=== PATIENT | male | born 1945 | race Caucasian/White ===

== ENCOUNTER → 2016-05-06 | Outpatient (CLI) | payer OTHER ==
[~2016-05-06] MED LIST: AMLO-110 PO; ASPI1TAB83 PO; CINN1CAP2 PO; GLIM4TAB2 PO; KFL500 PO; LSN20 PO; LSX20 PO; METF-384 PO; METF1000 PO; METO50TA16 PO; NAPR1TAB9 PO; OMG3 PO; PRLSR20 PO; PRVC/20 PO; SULF-302 PO; SYMIN PO; TAMS0.4C38 PO; XNX25 PO; [UNRECOGNIZED DRUG - CODE] SQ
[2016-05-06 17:42] LABS: BASO % 0.2 %; BASO ABS # 0.02 K/uL (0-0.2); COMPLETE YES; EOS % 0.7 %; HEMATOCRIT 36.5 % (42-52); IG% 0.4 %; LYMPH % 16.2 %; LYMPH ABS # 2.07 K/uL (1.2-3.4); MEAN CELL VOLUME 85.9 fL (80-100); MEAN CORPUSCULAR HEMOGLOBIN 28.9 pg (25-34); MEAN CORPUSCULAR HGB CONC 33.7 g/dl (32-36); MONO % 11.2 %; NEUT % 71.3 %; PLATELET COUNT 229 K/uL (130-400); RED BLOOD COUNT 4.25 M/uL (4.7-6.1); WHITE BLOOD COUNT 12.79 K/uL (4.8-10.8)
[2016-05-06 18:12] LABS: ALT/SGPT 21 U/L (12-78); AST/SGOT 14 U/L (15-37); BLOOD UREA NITROGEN 19 mg/dl (7-18); BUN/CREATININE RATIO 14.7 (10-20); CALCIUM 9.1 mg/dl (8.5-10.1); CARBON DIOXIDE 28 mmol/L (21-32); CHLORIDE 98 mmol/L (98-107); GLUCOSE 144 mg/dl (70-99); POTASSIUM 4.2 mmol/L (3.5-5.1); SODIUM 136 mmol/L (136-145)
[2016-05-06 18:15] LABS: ALB/GLOB RATIO 0.9 (0.9-2); ALKALINE PHOSPHATASE 99 U/L (45-117); C-REACTIVE PROTEIN 7.89 mg/dl (0-0.29)
== END | disposition home or self-care (01) ==
LOC: C.LAB1850 16:21
PROVIDERS: ATTEND Internal Medicine Infectious Disease
DX: L03.90 Cellulitis, unspecified (principal); M70.21 Olecranon bursitis, right elbow

== ENCOUNTER → 2016-05-07 | Outpatient (CLI) | payer OTHER ==
[~2016-05-07] MED LIST changes: +SULF-183 PO; -SULF-302 PO
== END | disposition home or self-care (01) ==
LOC: C.LABBC 08:53
PROVIDERS: ATTEND Orthopaedic Surgery
DX: M70.21 Olecranon bursitis, right elbow (principal)

== ENCOUNTER → 2016-05-18 | Outpatient (CLI) | payer OTHER ==
[2016-05-18 10:10] LABS: BASO % 0.3 %; BASO ABS # 0.02 K/uL (0-0.2); COMPLETE YES; EOS % 2.8 %; HEMATOCRIT 36.3 % (42-52); IG% 0.4 %; LYMPH % 30.7 %; MEAN CELL VOLUME 86.6 fL (80-100); MEAN CORPUSCULAR HEMOGLOBIN 29.1 pg (25-34); MEAN CORPUSCULAR HGB CONC 33.6 g/dl (32-36); MEAN PLATELET VOLUME 9.5 fL (7.4-10.4); MONO % 7.3 %; NEUT % 58.5 %; PLATELET COUNT 201 K/uL (130-400); RED BLOOD COUNT 4.19 M/uL (4.7-6.1); WHITE BLOOD COUNT 7.16 K/uL (4.8-10.8)
[2016-05-18 10:27] LABS: ESTIMATED AVERAGE GLUCOSE 154 mg/dl; HA1C FLAG Normal (Normal)
[2016-05-18 10:51] LABS: ALT/SGPT 22 U/L (12-78); BLOOD UREA NITROGEN 27 mg/dl (7-18); CALCIUM 9.5 mg/dl (8.5-10.1); CARBON DIOXIDE 32 mmol/L (21-32); CHLORIDE 98 mmol/L (98-107); GLUCOSE 82 mg/dl (70-99); POTASSIUM 4.7 mmol/L (3.5-5.1); SODIUM 138 mmol/L (136-145)
[2016-05-18 10:53] LABS: ALKALINE PHOSPHATASE 83 U/L (45-117); AST/SGOT 15 U/L (15-37); CHOLESTEROL 181 mg/dl (0-200); CHOLESTEROL/HDL RATIO 4.9; HDL CHOLESTEROL 37 mg/dl; LDL CHOLESTEROL CALCULATED 72 mg/dl; TRIGLYCERIDES 358 mg/dl (0-150); VERY LOW DENSITY LIPOPROT CALC 72 mg/dl
[2016-05-18 11:48] LABS: RATIO 19.4 mcg/mg (0-30.0)
== END | disposition home or self-care (01) ==
LOC: C.LAB1850 09:25
PROVIDERS: ATTEND Internal Medicine
DX: E78.5 Hyperlipidemia, unspecified (principal); E11.42 Type 2 diabetes mellitus with diabetic polyneuropathy

== ENCOUNTER → 2016-05-24 | Outpatient (CLI) | payer OTHER ==
[2016-05-24 09:55] LABS: BLOOD UREA NITROGEN 21 mg/dl (7-18); BUN/CREATININE RATIO 13.7 (10-20); CALCIUM 9.6 mg/dl (8.5-10.1); CARBON DIOXIDE 26 mmol/L (21-32); CHLORIDE 100 mmol/L (98-107); GLUCOSE 148 mg/dl (70-99); POTASSIUM 4.8 mmol/L (3.5-5.1); SODIUM 138 mmol/L (136-145)
== END | disposition home or self-care (01) ==
LOC: C.LAB1850 07:53
PROVIDERS: ATTEND Internal Medicine
DX: N28.9 Disorder of kidney and ureter, unspecified (principal)

== ENCOUNTER → 2016-05-27 | Outpatient (CLI) | payer OTHER ==
[2016-05-27 12:54] LABS: BLOOD UREA NITROGEN 22 mg/dl (7-18); BUN/CREATININE RATIO 14.9 (10-20); CALCIUM 9.6 mg/dl (8.5-10.1); CARBON DIOXIDE 29 mmol/L (21-32); CHLORIDE 98 mmol/L (98-107); GLUCOSE 161 mg/dl (70-99); POTASSIUM 4.5 mmol/L (3.5-5.1); SODIUM 136 mmol/L (136-145); URIC ACID 8.3 mg/dl (2.6-7.2)
== END | disposition home or self-care (01) ==
LOC: C.LABBFT 11:12
PROVIDERS: ATTEND Internal Medicine
DX: N28.9 Disorder of kidney and ureter, unspecified (principal); M10.9 Gout, unspecified

== ENCOUNTER → 2016-06-04 | Outpatient (CLI) | payer OTHER ==
[2016-06-04 13:15] LABS: BLOOD UREA NITROGEN 24 mg/dl (7-18); BUN/CREATININE RATIO 17.5 (10-20); CALCIUM 9.8 mg/dl (8.5-10.1); CARBON DIOXIDE 27 mmol/L (21-32); CHLORIDE 99 mmol/L (98-107); GLUCOSE 161 mg/dl (70-99); POTASSIUM 4.8 mmol/L (3.5-5.1); SODIUM 136 mmol/L (136-145)
== END | disposition home or self-care (01) ==
LOC: C.LABBFT 10:09
PROVIDERS: ATTEND Internal Medicine
DX: N28.9 Disorder of kidney and ureter, unspecified (principal)

== ENCOUNTER → 2016-08-03 | Outpatient (CLI) | payer OTHER ==
--- NOTE | 2016-08-04 06:04 | PAP/PSG TECHNICIAN REPORT ---
[facility] Assembly Lead Person Polysomnogram Report Study name: None Report date: 08/04/2016 Study date: 08/03/2016 Referring Physician: DONNIE LEAVITT M.D. Name: KULDIP HARDEN I Interpreting Physician: Kuldip Zambrano M.D. Date of : 1945 Assembly Lead Person: Page Smith RPSGT. Sex: Male Age: 71 StudyType: PSG PAP Weight: 310 lbs Height: 71 years, Height 5' 9" Neck Circum:20inches BMI: 45.77 Medications: Alprazolam 0.25 mg, Amlodipine Besylate 5mg, Aspirin 81 mg, Byetta 10 MCG Pen , Cephalexin 500 mg, Furosemide 20 mg, Glimepiride 4 mg, Lisinopril 20mg, Metformin 1000 mg, Metoprolol Tartrate 50 mg, Naproxen Sodium 220 mg, Omeprazole 20 mg, Sulfamethoxazole-Trimethoprim 800-160 mg, Symbocort 160-4.5 MCG/ACT, Tamsulosin HCL 0.4 mg Patient History Study started on room air with 7 cwp cpap in room #6(had to start at a higher setting than 4cwp). 71 yr old male here tonight for a titration study to check pressure settings. He has been using cpap at a setting of 10cwp with cflex 2 with a nasal mask. His neck circ=20inches. Parameters Monitored NPSG: E1-M2, E2-M1, Fp1-M2, Fp2-M1, F3-M2, F4-M2, F4-M1, C3-M2, C4-M2, C4-M1, O1-M2, O2-M2, O2-M1, T3-M2, T4-M1, P3-M2, P4-M1, CHIN1, CHIN2, HR, EKG, Legs, PFLOW, SNOR, FLOW, CFLOW, Tidal Volume, THOR, ABDO, SpO2, PLTH, CPRESS, ETCO2 Wave, ETCO2, pH Sleep Architecture Sleep Stages Time at Lights Off 10:59:04 PM STAGES Time (min.) TST (%) Time at Lights On 5:22:34 AM Wake 71.0 -- Total Recording Time (TRT) 383.50 min. N1 7.5 2 Total Sleep Period (TSP) 380.5 min. N2 147.0 47 Total Sleep Time (TST) 312.5min. N3 97.0 31 Awake Time 71.0 min. REM 61.0 20 Wake after Sleep Onset 68.0 min. Sleep Efficiency (SE) 81 % Sleep Onset Latency (ELMER) 3.0 min. Number of Stage 1 Shifts None Awakenings 10 Stage Changes 47 Number of REM periods 4 REM 61.0 20 REM Latency 79.0 min. NREM 251.5 80 Body Position Analysis Supine Right Left Side Prone Vertical Total Sleep Time (min.) 18.0 224.5 84.3 308.81 0.0 0.0 Total Sleep Time (%) 1% 72% 27% 99 0% N/A% Total Sleep Time REM (min.) 0.0 41.0 20.0 None 0.0 0.0 Total Sleep Time NREM (min.) 3.7 183.5 64.3 None 0.0 0.0 Intermittent Wake (min.) 14.4 53.9 2.7 None 0.0 0.0 Total Sleep Period (%) 5% None None None None None Arousals Myoclonus (PLM) * Events Count Index Events Count Index Spontaneous 9 2 Events Awake (PLMW) 82 69.3 Respiratory 1 0.4 Events Asleep w/ Arousal (PLMA) 13 2.5 PLM 11 2 Events Asleep w/o Arousal (PLMS) 241 46.3 Snoring 2 0 Total Asleep 254 48.8 Total 23 4 Total 336 53 Respiratory Analysis * CA OA MA CH H RERA Total Count 0 0 0 0 9 0 9 Index 0.0 0.0 0.0 0 1.7 0 1.7 Mean Duration 0.0 0.0 0.0 0.00 33.3 0.0 33.3 Longest Duration 0.0 0.0 0.0 0.00 0.0 0.0 54.6 Respiratory Event Summary Total Supine ~Supine Right Left Prone REM NREM Apneas Count 0 0 0 0 0 N/A 0 0 Index 0.0 0 0 0.0 0.0 N/A 0 0 Hypopneas (4% Desat) Count 9 0 9 6 3 N/A 2 7 Index 1.7 0.0 2 1.6 2.1 N/A 2.0 1.7 Apneas & All Hypopneas Count 9 0 9 6 3 N/A 2 7 Index 1.7 0 2 2 2 N/A 2.0 1.7 Respiratory Events (Women'S Lacrosse Coach+All Hyp+RERA) Count 9 0 9 6 3 N/A 2 7 Index 1.7 0 2 1.6 2.1 N/A 2.0 1.7 Respiratory Related Arousal Count 1 0 2 1 1 N/A 0 2 Index 0.4 0 0 0 1 N/A 0 0 Snoring Analysis Supine Right Left Prone REM NREM Total Snore duration 5.9 min Snores count 1 23 83 N/A 23 84 107 Snore mean duration 3.3 Sec Snores index 16 6 59 N/A 22.6 20.0 20.5 TST with snoring (%) 1.9% Desaturation Event Summary: Minimum %SpO2 Event Count Mean/Min/Max Duration(sec.) Desaturation Index % Time In Bed > 90 17 33.4 / 9.8 / 59.8 7.5 38.2 86 - 90 18 35.0 / 9.8 / 59.8 5.6 54.3 81 - 85 3 33.6 / 17.3 / 56.5 6.9 7.4 76 - 80 0 N/A 0.0 0.1 71 - 75 0 N/A 0.0 0.0 66 - 70 0 N/A 0.0 0.0 61 - 65 0 N/A 0.0 0.0 56 - 60 0 N/A 0.0 0.0 51 - 55 0 N/A 0.0 0.0 < 50 0 N/A 0.0 0.0 Total REM NREM Awake <50% 0.0 min. 0.0 min. 0.0 min. 0.0 min. 51 - 60% 0.0 min. 0.0 min. 0.0 min. 0.0 min. 61 - 70% 0.0 min. 0.0 min. 0.0 min. 0.0 min. 71 - 80% 0.3 min. 0.3 min. 0.0 min. 0.0 min. 81 - 90% 218.0 min. 37.6 min. 163.1 min. 17.3 min. 91 - 100% 135.2 min. 23.1 min. 88.0 min. 24.1 min. Average 90 89 90 92 Minimum SpO2 80 80 83 83 Desaturation Event Index 3.8 3.9 3.8 3.4 # Desat. Events below 89% 21 4 14 3 Time(%) with Saturation below 89% 37.8 6.9 28.3 2.5 Time(min.) with Saturation below 89% 133.5 24.5 100.2 8.9 Time (mins) REM (mins) NREM (mins) % of TST SpO2 Below 90% 19 4 N15 52.7 SpO2 Below 88% 10 0 0 27 Heart Rate Analysis Min (bpm) Max (bpm) Average (bpm) Awake 49 127 72 NREM 45 83 67 REM 42 79 63 Overall 42 83 66 Supplemental O2 Values Minimum O2 level: None Value Start Time End Time Assembly Lead Person Comments Mr. Harden slept in the right andleft positions. No cardiac arrhythmia noted. Leg movements were noted. No bruxism noted. CPAP was initiated at +7 CMH2O and up-titrated to an optimal level of +8CMH2O and 3 lpm oxygen, which nearly eliminated all respiratory events and snoring. At 1:51am oxygen was added. AHI on 9cwp was 3.9 for 123.4minutes. Oxygen saturations were under 89% for 76.7minutes. He brought his own nasal mask to use during titration. He awoke 4 times to use the restroom during the night. He stated that he slept about the same as when at home". The final report will be interpreted and signed by a sleep physician. The completed physician report will then be placed in the patient medical record. Therapy Event: Therapy (cm H20) 7 8 Total Time at Pressure (min.) 47.1 336.4 TST at Pressure (min.) 44.1 268.4 # Periods 1 1 Sleep Onset (min.) 3.0 0.0 REM Onset (min.) N/A 34.9 Sleep Efficiency % 93 79 Wakefulness (%) 6.4 20.2 Wakefulness (min.) 3.0 68.0 NREM 1 (%) 2.1 1.9 NREM 1 (min.) 1.0 6.5 NREM 2 (%) 45.9 37.3 NREM 2 (min.) 21.6 125.4 NREM 3 (%) 45.6 22.4 NREM 3 (min.) 21.5 75.5 REM (%) 0.0 18.1 REM (min.) 0.0 61.0 # Arousals 2 21 Arousal Index 2.7 4.7 # Snore 4 103 Snore Index 5.4 23.0 AHI 4.1 1.3 AHI Supine N/A 0.0 AHI Non-Supine 4.1 1.4 NREM AHI 4.1 1.2 REM AHI N/A 2.0 RDI 4.1 1.3 # Obstructive 0 0 # Central Ap 0 0 # Mixed 0 0 # Hypopneas 3 6 RERAS 0 0 Total Respiratory Events 3 6 Time Below SpO2 89.00% (min.) 32.1 92.6 Mean NREM SpO2 (%) 88 90 Mean REM SpO2 (%) N/A 89 Mean Sleep SpO2 (%) 88 90 Min NREM SpO2 (%) 86 83 Min REM SpO2 (%) N/A 80 Position Supine (min.) 0.0 3.7 Position Non-supine (min.) 44.1 264.7 LM Index Sleep 172.7 28.4 LM Index NREM 172.7 31.0 LM Index REM N/A 19.7 Mean Heart Rate (bpm) 69 65 Min Heart Rate (bpm) 64 42
--- NOTE | 2016-08-05 09:24 | POLYSOMNOGRAPH REPORT ---
CLINICAL DATA: A 71-year-old male with BMI of 45.[address] Duncan and myself for CPAP titration study. He has been using CPAP 10 cm of water pressure, C-flex 2 with nasal mask. He recently had an overnight pulse oximetry which showed some external desaturation. He was returned to the sleep lab for another CPAP titration study to determine if hypoxemia could be corrected with CPAP. SLEEP ARCHITECTURE: Total sleep period was 380.5 minutes. Total sleep time was 312.5 minutes divided between 251.5 minutes of non-REM sleep and 61 minutes of REM sleep. Sleep onset latency was 3 minutes. REM latency was 79 minutes. Sleep efficiency was 81%. Wake after sleep onset was 68 minutes. Sleep consisted of stage N1 2%, N2 47%, N3 31%, REM 20%. AROUSAL DATA: Twenty-three arousals were recorded for an index of 4 per hour. PLM DATA: Moderately elevated limb movements during sleep were noted. There were 254 limb movements during sleep noted for an index of 48.8 per hour with arousal index of 2.5 per hour. RESPIRATORY DATA: The AHI was 1.7. There were 9 hypopneic episodes. The mean duration of hypopnea was 33.3 seconds. OXIMETRY DATA: Nocturnal hypoxemia was seen. Oxygen sussy was 88% during REM. The mean saturation was 90%. EKG: Heart rates ranged from 42-83 beats per minute. No arrhythmias were noted. BURLESQUE DANCER'S COMMENTS: The patient slept in the left and right positions. CPAP was started at 7 cm of water pressure and titrated up to an optimal level of 8-9 cm of water pressure. His CPAP did eliminate all respiratory events, but he continued to have nocturnal hypoxemia with an O2 saturation less than 89% for over 76.7 minutes without oxygen. He did have oxygen added and CPAP was continued. Three liters of oxygen was required to correct his sleep apnea. IMPRESSION: Obstructive sleep apnea with nocturnal hypoxemia corrected with CPAP 8-9 cm of water pressure, Oxygen 3 liters per minute. RECOMMENDATIONS: The patient's CPAP should be continued. He should be started on oxygen 3 liters per minute along with CPAP. [facility]
== END | disposition home or self-care (01) ==
LOC: C.NEUR 21:00
PROVIDERS: ATTEND Internal Medicine Pulmonary Disease
DX: G47.33 Obstructive sleep apnea (adult) (pediatric) (principal); R09.02 Hypoxemia; J45.909 Unspecified asthma, uncomplicated

== ENCOUNTER → 2016-09-30 | Outpatient (CLI) | payer OTHER ==
--- NOTE | 2016-09-30 17:13 | DIAGNOSTIC IMAGING REPORT ---
RIGHT SHOULDER 3 VIEWS HISTORY: PAIN IN JOINT OF RIGHT SHOULDER Right COMPARISON: None. FINDINGS: There is no fracture or dislocation. 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 The right clavicle is intact. Small focus of calcification at the distal supraspinatus tendon. Mild AC joint arthrosis. No radiopaque foreign bodies. IMPRESSION: 1. No fracture or dislocation within the right shoulder. 2. Degenerative changes as described above. 3. Supraspinatus calcific tendinitis. Electronically signed by: Meño Dc M.D. 09/30/2016 5:12 PM Dictated Date/Time: 09/30/2016 5:10 PM
== END | disposition home or self-care (01) ==
LOC: C.RAD1850 16:49
PROVIDERS: ATTEND Physician Assistant Medical
DX: M25.511 Pain in right shoulder (principal); M75.31 Calcific tendinitis of right shoulder; M19.011 Primary osteoarthritis, right shoulder

== ENCOUNTER → 2016-10-14 | Outpatient (CLI) | payer OTHER ==
[2016-10-14 12:48] LABS: BLOOD UREA NITROGEN 17 mg/dl (7-18); BUN/CREATININE RATIO 17.2 (10-20); CALCIUM 9.4 mg/dl (8.5-10.1); CARBON DIOXIDE 30 mmol/L (21-32); CHLORIDE 100 mmol/L (98-107); GLUCOSE 137 mg/dl (70-99); POTASSIUM 4.2 mmol/L (3.5-5.1); SODIUM 137 mmol/L (136-145)
[2016-10-14 13:18] LABS: ESTIMATED AVERAGE GLUCOSE 154 mg/dl; HA1C FLAG Normal (Normal)
== END | disposition home or self-care (01) ==
LOC: C.LABBFT 10:45
PROVIDERS: ATTEND Internal Medicine
DX: E11.9 Type 2 diabetes mellitus without complications (principal)

== ENCOUNTER → 2017-01-11 | Outpatient (CLI) | payer OTHER | END | disposition home or self-care (01) | LOC: C.LABBFT 11:07 | PROVIDERS: ATTEND Urology | DX: Z12.5 Encounter for screening for malignant neoplasm of prostate (principal); D48.9 Neoplasm of uncertain behavior, unspecified; N28.9 Disorder of kidney and ureter, unspecified ==

== ENCOUNTER → 2017-03-10 | Outpatient (CLI) | payer OTHER ==
[2017-03-10 13:20] LABS: ESTIMATED AVERAGE GLUCOSE 160 mg/dl; HA1C FLAG Normal (Normal)
== END | disposition home or self-care (01) ==
LOC: C.LABBFT 10:57
PROVIDERS: ATTEND Internal Medicine
DX: E11.9 Type 2 diabetes mellitus without complications (principal)

== ENCOUNTER → 2017-05-23 | Day surgery (SDC) | payer OTHER ==
[2017-05-12 09:11] VITALS: Ht 175.3 cm; Wt 140.9 kg
[~2017-05-23] VITALS: Ht 175.3 cm; Wt 140.9 kg
[~2017-05-23] MED LIST changes: +ALLO300T2 PO; +EXEN1INJ3 SC; +FURO40TA3 PO; -KFL500 PO; +LIDOCAINE HCL 2% 2 ML VIAL (20MG/ML) ONE; -LSX20 PO; +MIDAZOLAM HCL 1 MG/ML 2ML VIAL ONE; +ONDANSETRON INJ 2 MG/ML 2 ML VIAL ONE; +PROPOFOL IV EMULSION 10 MG/ML 20 ML VIAL IV ONE; -PRVC/20 PO; +PRVC40 PO; +SODIUM CHLORIDE 0.9% 500ML 500 ML IV ONE; -SULF-183 PO; +TRAM-10 PO; -[UNRECOGNIZED DRUG - CODE] SQ
--- NOTE | 2017-05-23 08:46 | Endo History and Physical ---
History & Physical Date of Service: May 23, 2017. Chief Complaint: GERD Referring Physician: Dr. Duncan History of Present Illness 71 yo CM who presents for EGD secondary to GERD. Past Medical History Diabetes, Asthma, High Cholesterol, Sleep Apnea, CHF, Hypertension, Other Past Surgical History Hx Cardiac Surgery: Yes (HEART CATH, NO STENTS) Hx Internal Defibrillator: No Hx Pacemaker: No Hx Abdominal Surgery: Yes (S[facility]LEY) Hx of Implantable Prosthesis: No Hx Post-Op Nausea and Vomiting: No Hx Cancer Surgery: No Hx Thoracic Surgery: No Hx Orthopedic: No Hx Urinary Tract Surgery: No Family History None Social History Smoking Status: Former Smoker Hx Substance Use: No Hx Alcohol Use: Yes (QUIT "YEARS AGO") Allergies Coded Allergies: Molds and Smuts (Verified Allergy, Severe, respiratory problems, 05/23/17) Atorvastatin (Verified Adverse Reaction, Mild, Muscle soreness, 05/23/17) Rosuvastatin (Verified Adverse Reaction, Mild, Muscle soreness, 05/23/17) Simvastatin (Verified Adverse Reaction, Mild, Muscle soreness, 05/23/17) Current Medications Reported Home Medications Medications Dose Route/Sig Max Daily Dose Days Date Category Bydureon (Exenatide) 2 Mg Inj 2 Mg SC WK 05/12/17 Reported Zyloprim (Allopurinol) 300 Mg Tab 300 Mg PO QAM 05/12/17 Reported Ultram (Tramadol HCl) 50 Mg Tab 1-2 Tabs PO Q6H PRN 05/12/17 Reported Pravastatin Sodium (Pravastatin Sod) 40 Mg Tab 0.5 Tab PO QAM 05/12/17 Reported Lasix (Furosemide) 40 Mg Tab 40 Mg PO QAM 05/12/17 Reported Glucophage (Metformin Hcl) 1,000 Mg Tab 1,000 Mg PO QAM, QPM 02/15/15 Reported Norvasc (Amlodipine Besylate) 5 Mg Tab 5 Mg PO QAM 06/03/14 Reported Alprazolam 0.25 Mg Tab 0.25 Mg PO DAILY PRN 04/15/14 Reported Flomax (Tamsulosin Hcl) 0.4 Mg Cap 0.4 Mg PO BID 04/15/14 Reported Symbicort 160-4.5 Mcg/Act (Budesonide/Formoterol Fumarate) 60 Puffs/Inhaler Aero 2 Puffs PO BID 04/15/14 Reported Glucophage (Metformin Hcl) 1,000 Mg Tab 0.5 Tab PO HS 04/15/14 Reported Glimepiride 4 Mg Tab 4 Mg PO BID 04/15/14 Reported Lisinopril 20 Mg Tab 40 Mg PO QAM 04/15/14 Reported Fish Oil 1 Gm Cap 1 Gm PO BID 04/15/14 Reported Cinnamon 500 Mg Cap 500 Mg PO BID 04/15/14 Reported Aspirin 81 Mg Tab 81 Mg PO QPM 04/15/14 Reported Aleve (Naproxen) 220 Mg Tab 220 Mg PO TID PRN 01/15/11 Reported Prilosec (Omeprazole) 20 Mg Capcr 20 Mg PO BID PRN 01/15/11 Reported Lopressor (Metoprolol Tartrate) 50 Mg Tab 50 Mg PO BID 01/15/11 Reported Vital Signs Weight (Kilograms): 140.91 Height (Feet): 5 Height (Inches): 9 Physical Exam General Appearance: WD/WN, no apparent distress Respiratory/Chest: Auscultation: breath sounds normal Cardiovascular: Heart Auscultation: RRR Abdomen: Bowel Sounds: normal Inspection & Palpation: soft, non-distended, no tenderness, guarding & rebound Assessment and Plan Assessment: 71 yo CM who presents for EGD secondary to GERD. Plan: Proceed with EGD.
--- NOTE | 2017-05-23 09:34 | Discharge Instructions ---
Endoscopy Patient Instructions Date / Procedure(s) Performed May 23, 2017. EGD Allergy Information Coded Allergies: Molds and Smuts (Verified Allergy, Severe, respiratory problems, 05/23/17) Atorvastatin (Verified Adverse Reaction, Mild, Muscle soreness, 05/23/17) Rosuvastatin (Verified Adverse Reaction, Mild, Muscle soreness, 05/23/17) Simvastatin (Verified Adverse Reaction, Mild, Muscle soreness, 05/23/17) Discharge Date / Findings May 23, 2017. Gastric ulcer s/p biopsies Gastritis Hiatal hernia Medication Instructions Stopped Medication(s): ASA 81 mg Metformin 1) Recommend taking Omeprazole 20mg by mouth 1/2 hour prior to breakfast and dinner, rather than PRN 2) OK to resume all medications today as prescribed Reported Home Medications Medications Dose Route/Sig Max Daily Dose Days Date Category Bydureon (Exenatide) 2 Mg Inj 2 Mg SC WK 05/12/17 Reported Zyloprim (Allopurinol) 300 Mg Tab 300 Mg PO QAM 05/12/17 Reported Ultram (Tramadol HCl) 50 Mg Tab 1-2 Tabs PO Q6H PRN 05/12/17 Reported Pravastatin Sodium (Pravastatin Sod) 40 Mg Tab 0.5 Tab PO QAM 05/12/17 Reported Lasix (Furosemide) 40 Mg Tab 40 Mg PO QAM 05/12/17 Reported Glucophage (Metformin Hcl) 1,000 Mg Tab 1,000 Mg PO QAM, QPM 02/15/15 Reported Norvasc (Amlodipine Besylate) 5 Mg Tab 5 Mg PO QAM 06/03/14 Reported Alprazolam 0.25 Mg Tab 0.25 Mg PO DAILY PRN 04/15/14 Reported Flomax (Tamsulosin Hcl) 0.4 Mg Cap 0.4 Mg PO BID 04/15/14 Reported Symbicort 160-4.5 Mcg/Act (Budesonide/Formoterol Fumarate) 60 Puffs/Inhaler Aero 2 Puffs PO BID 04/15/14 Reported Glucophage (Metformin Hcl) 1,000 Mg Tab 0.5 Tab PO HS 04/15/14 Reported Glimepiride 4 Mg Tab 4 Mg PO BID 04/15/14 Reported Lisinopril 20 Mg Tab 40 Mg PO QAM 04/15/14 Reported Fish Oil 1 Gm Cap 1 Gm PO BID 04/15/14 Reported Cinnamon 500 Mg Cap 500 Mg PO BID 04/15/14 Reported Aspirin 81 Mg Tab 81 Mg PO QPM 04/15/14 Reported Aleve (Naproxen) 220 Mg Tab 220 Mg PO TID PRN 01/15/11 Reported Prilosec (Omeprazole) 20 Mg Capcr 20 Mg PO BID PRN 01/15/11 Reported Lopressor (Metoprolol Tartrate) 50 Mg Tab 50 Mg PO BID 01/15/11 Reported Provider Instructions Activity Restrictions - No exercising or heavy lifting for 24 hours. - Do not drink alcohol the day of the procedure. - Do not drive a car or operate machinery until the day after the procedure. - Do not make any important decisions or sign important papers in 24 hours after the procedure. Following Day: - Return to full activity which may include returning to work/school. Diet Start your diet with liquids and light foods (jello, soup, juice, toast). Then eat your usual diet if not nauseated. Treatment For Common After Affects For mild abdominal pain, bloating, or excessive gas: - Rest - Eat lightly - Lie on right side Follow-Up Information Follow-up with in our office in 6 weeks for further evaluation and recommendations. Anesthesia Information What You Should Know You have had a procedure that required some medicine to reduce anxiety and discomfort. This treatment is called moderate sedation. After receiving the treatment, you may be sleepy, but you will be able to breathe on your own. The effects of the treatment may last for several hours. Follow these instructions along with Activity/Diet recommendations noted above: * Do NOT do anything where dizziness or clumsiness would be dangerous. * Rest quietly at home today, then you can be up and about tomorrow. * Have a responsible person stay with you the rest of today. * You may have had an I.V. today. If so, you may take the dressing off later today. Recommendations Call your doctor if: * Trouble breathing * Continuous vomiting for more than 24 hours * Temperature above 101 degrees * Severe abdominal pain or bloating * Pain not relieved by pain medicine ordered * There is increased drainage or redness from any incision * A large amount of rectal bleeding greater than 2-3 tablespoons. (If you had a polyp/s removed or have hemorrhoids, a small amount of blood - from the rectum is to be expected.) * You have any unanswered questions or concerns. IN THE EVENT OF A SERIOUS EMERGENCY, GO TO THE NEAREST EMERGENCY ROOM Your discharge instructions were prepared by provider Griffin Alas. Patient Instructions Signature Page Mango Harden Patient (or Guardian) Signature/Date: I have read and understand the instructions given to me by my caregivers. Caregiver/RN/Doctor Signature/Date: The above-named patient and/or guardian has received patient instructions on this date. + Original Patient Signature Page (only) stays with chart. Please make copy for patient.
--- NOTE | 2017-05-23 09:45 | Anesthesiology Progress Note ---
Anesthesia Post Op Note Date & Time May 23, 2017 at 09:44 Vital Signs Pain Intensity: 0 Vital Signs Past 12 Hours Date Time Temp Pulse Resp B/P (MAP) Pulse Ox O2 Delivery O2 Flow Rate FiO2 05/23/17 09:32 61 16 95/43 (60) 99 Mask 5 05/23/17 08:49 36.3 66 22 123/97 (106) 99 Room Air Notes Mental Status: alert / awake / arousable, participated in evaluation Pt Amnestic to Procedure: Yes Nausea / Vomiting: adequately controlled Pain: adequately controlled Airway Patency, RR, SpO2: stable & adequate BP & HR: stable & adequate Hydration State: stable & adequate Anesthetic Complications: no major complications apparent
[2017-05-23 10:02] VITALS: BP 106/56; PULSE 66; O2SAT 94
--- NOTE | 2017-05-24 11:42 | GI REPORT ---
Procedure Date: 05/23/2017 9:01 AM Procedure: Upper GI endoscopy Indications: Gastro-esophageal reflux disease Medicines: Monitored Anesthesia Care Complications: No immediate complications. Estimated Blood Loss: Estimated blood loss: none. Procedure: Pre-Anesthesia Assessment: - Prior to the procedure, a History and Physical was performed, and patient medications and allergies were reviewed. The patient's tolerance of previous anesthesia was also reviewed. The risks and benefits of the procedure and the sedation options and risks were discussed with the patient. All questions were answered, and informed consent was obtained. Prior Anticoagulants: The patient has taken aspirin, last dose was 3 days prior to procedure. ASA Grade Assessment: III - A patient with severe systemic disease. After reviewing the risks and benefits, the patient was deemed in satisfactory condition to undergo the procedure. After obtaining informed consent, the endoscope was passed under direct vision. Throughout the procedure, the patient's blood pressure, pulse, and oxygen saturations were monitored continuously. The scope was introduced through the mouth, and advanced to the second part of duodenum. The upper GI endoscopy was accomplished without difficulty. The patient tolerated the procedure well. Findings: The esophagus was normal. A small hiatal hernia was present. Localized mild inflammation characterized by erythema was found in the gastric antrum. One non-bleeding superficial gastric ulcer with no stigmata of bleeding was found in the gastric antrum. The lesion was 3 mm in largest dimension. Biopsies were taken with a cold forceps for histology. The examined duodenum was normal. Impression: - Normal esophagus. - Small hiatal hernia. - Gastritis. - Non-bleeding gastric ulcer with no stigmata of bleeding. Biopsied. - Normal examined duodenum. Recommendation: - Resume previous diet. - Use Prilosec (omeprazole) 20 mg PO BID. - Repeat upper endoscopy in 8 weeks to check healing. - Return to GI clinic in 6 weeks. Griffin Alas, 05/23/2017 9:43:34 AM This report has been signed electronically. Note Initiated On: 05/23/2017 9:01 AM I attest to the content of the Intraoperative Record and orders documented therein, exceptions below
== END | disposition home or self-care (01) ==
LOC: C.GI 08:09
PROVIDERS: ATTEND Internal Medicine
DX: K21.9 Gastro-esophageal reflux disease without esophagitis (principal); K25.9 Gastric ulcer, unspecified as acute or chronic, without hemorrhage or perforation; K44.9 Diaphragmatic hernia without obstruction or gangrene; E11.9 Type 2 diabetes mellitus without complications; J45.909 Unspecified asthma, uncomplicated; E78.00 Pure hypercholesterolemia, unspecified; G47.30 Sleep apnea, unspecified; I11.0 Hypertensive heart disease with heart failure; I50.9 Heart failure, unspecified; Z87.891 Personal history of nicotine dependence; Z79.84 Long term (current) use of oral hypoglycemic drugs; Z79.899 Other long term (current) drug therapy

== ENCOUNTER → 2017-07-07 | Outpatient (CLI) | payer OTHER ==
[~2017-07-07] MED LIST changes: -LIDOCAINE HCL 2% 2 ML VIAL (20MG/ML) ONE; -MIDAZOLAM HCL 1 MG/ML 2ML VIAL ONE; -ONDANSETRON INJ 2 MG/ML 2 ML VIAL ONE; -PROPOFOL IV EMULSION 10 MG/ML 20 ML VIAL IV ONE; -SODIUM CHLORIDE 0.9% 500ML 500 ML IV ONE
[2017-07-07 12:27] LABS: BASO % 0.2 %; BASO ABS # 0.02 K/uL (0-0.2); EOS % 5.1 %; EOS ABS # 0.49 K/uL (0-0.5); HEMATOCRIT 35.3 % (42-52); HEMOGLOBIN 12.1 g/dL (14.0-18.0); IG# 0.05 K/uL (0.00-0.02); LYMPH % 20.1 %; LYMPH ABS # 1.93 K/uL (1.2-3.4); MEAN CORPUSCULAR HEMOGLOBIN 30.2 pg (25-34); MEAN CORPUSCULAR HGB CONC 34.3 g/dl (32-36); MEAN PLATELET VOLUME 9.7 fL (7.4-10.4); MONO % 7.3 %; NEUT % 66.8 %; NEUT ABS # 6.42 K/uL (1.4-6.5); PLATELET COUNT 189 K/uL (130-400); RED CELL DISTRIBUTION WIDTH CV 15.7 % (11.5-14.5); RED CELL DISTRIBUTION WIDTH SD 49.7 fL (36.4-46.3); WHITE BLOOD COUNT 9.61 K/uL (4.8-10.8)
[2017-07-07 13:18] LABS: ALBUMIN 3.7 gm/dl (3.4-5.0); ALT/SGPT 23 U/L (12-78); BLOOD UREA NITROGEN 27 mg/dl (7-18); CALCIUM 9.7 mg/dl (8.5-10.1); CARBON DIOXIDE 28 mmol/L (21-32); CHOLESTEROL 177 mg/dl (0-200); CREATININE 1.12 mg/dl (0.60-1.40); GLUCOSE 132 mg/dl (70-99); POTASSIUM 4.2 mmol/L (3.5-5.1); SODIUM 131 mmol/L (136-145)
[2017-07-07 13:28] LABS: ALKALINE PHOSPHATASE 105 U/L (45-117); AST/SGOT 21 U/L (15-37); TOTAL PROTEIN 7.6 gm/dl (6.4-8.2)
[2017-07-07 13:39] LABS: HEMOGLOBIN A1C 7.3 % (4.5-5.6)
[2017-07-07 16:39] LABS: CREATININE RANDOM URINE 81.5 mg/dl
== END | disposition home or self-care (01) ==
LOC: C.LAB1850 09:57
PROVIDERS: ATTEND Internal Medicine
DX: E11.42 Type 2 diabetes mellitus with diabetic polyneuropathy (principal); E78.5 Hyperlipidemia, unspecified

== ENCOUNTER → 2017-07-13 | Outpatient (CLI) | payer OTHER ==
[~2017-07-13] MED LIST changes: +PRED-301 PO
[2017-07-13 12:42] LABS: BLOOD UREA NITROGEN 20 mg/dl (7-18); CALCIUM 9.7 mg/dl (8.5-10.1); CARBON DIOXIDE 30 mmol/L (21-32); CREATININE 1.06 mg/dl (0.60-1.40); GLUCOSE 100 mg/dl (70-99); POTASSIUM 4.2 mmol/L (3.5-5.1); SODIUM 135 mmol/L (136-145)
== END | disposition home or self-care (01) ==
LOC: C.LABBFT 08:24
PROVIDERS: ATTEND Internal Medicine
DX: E11.42 Type 2 diabetes mellitus with diabetic polyneuropathy (principal); E78.5 Hyperlipidemia, unspecified

== ENCOUNTER → 2017-07-20 | Day surgery (SDC) | payer OTHER ==
[2017-07-06 13:18] VITALS: BMI 46.0
[~2017-07-20] VITALS: Ht 175.3 cm; Wt 140.9 kg
[~2017-07-20] MED LIST changes: +LIDOCAINE HCL 2% 2 ML VIAL (20MG/ML) ONE; +MIDAZOLAM HCL 1 MG/ML 2ML VIAL ONE; +ONDANSETRON INJ 2 MG/ML 2 ML VIAL ONE; +PROPOFOL IV EMULSION 10 MG/ML 20 ML VIAL IV ONE; +SODIUM CHLORIDE 0.9% 500ML 500 ML IV ONE
[2017-07-20 08:20] VITALS: Ht 175.3 cm; Wt 140.9 kg
--- NOTE | 2017-07-20 08:51 | Endo History and Physical ---
History & Physical Date of Service: Jul 20, 2017. Chief Complaint: gastric ulcer Referring Physician: dr. kraus History of Present Illness 72 yo CM who presents for EGD secondary to gastric ulcer. Past Medical History Diabetes, Asthma, High Cholesterol, Sleep Apnea, CHF, Hypertension, Other Past Surgical History Hx Cardiac Surgery: Yes (CARDIAC CATH NO STENTS) Hx Internal Defibrillator: No Hx Pacemaker: No Hx Abdominal Surgery: Yes (GB SURG) Hx of Implantable Prosthesis: No Hx Post-Op Nausea and Vomiting: No Hx Cancer Surgery: No Hx Thoracic Surgery: No Hx Orthopedic: No Hx Urinary Tract Surgery: No Family History None Social History Smoking Status: Former Smoker Hx Substance Use: No Hx Alcohol Use: No (QUIT "YEARS AGO") Allergies Coded Allergies: Molds and Smuts (Verified Allergy, Severe, respiratory problems, 07/20/17) Atorvastatin (Verified Adverse Reaction, Mild, Muscle soreness, 07/20/17) Rosuvastatin (Verified Adverse Reaction, Mild, Muscle soreness, 07/20/17) Simvastatin (Verified Adverse Reaction, Mild, Muscle soreness, 07/20/17) Current Medications Reported Home Medications Medications Dose Route/Sig Max Daily Dose Days Date Category Dose Instructions Prednisone 5 Mg Tab 5 Mg PO PRN 07/20/17 Reported Bydureon (Exenatide) 2 Mg Inj 2 Mg SC WK 05/12/17 Reported SUNDAYS Zyloprim (Allopurinol) 300 Mg Tab 600 Mg PO QAM 05/12/17 Reported Ultram (Tramadol HCl) 50 Mg Tab 1-2 Tabs PO Q6H PRN 05/12/17 Reported Pravastatin Sodium (Pravastatin Sod) 40 Mg Tab 0.5 Tab PO QAM 05/12/17 Reported Lasix (Furosemide) 40 Mg Tab 40 Mg PO QAM 05/12/17 Reported Glucophage (Metformin Hcl) 1,000 Mg Tab 1,000 Mg PO QAM, QPM 02/15/15 Reported Norvasc (Amlodipine Besylate) 5 Mg Tab 5 Mg PO QAM 06/03/14 Reported Alprazolam 0.25 Mg Tab 0.25 Mg PO DAILY PRN 04/15/14 Reported Flomax (Tamsulosin Hcl) 0.4 Mg Cap 0.4 Mg PO BID 04/15/14 Reported Symbicort 160-4.5 Mcg/Act (Budesonide/Formoterol Fumarate) 60 Puffs/Inhaler Aero 2 Puffs PO BID 04/15/14 Reported Glucophage (Metformin Hcl) 1,000 Mg Tab 0.5 Tab PO HS 04/15/14 Reported Glimepiride 4 Mg Tab 4 Mg PO BID 04/15/14 Reported Lisinopril 20 Mg Tab 40 Mg PO QAM 04/15/14 Reported Fish Oil 1 Gm Cap 1 Gm PO BID 04/15/14 Reported Cinnamon 500 Mg Cap 500 Mg PO BID 04/15/14 Reported Aspirin 81 Mg Tab 81 Mg PO QPM 04/15/14 Reported Aleve (Naproxen) 220 Mg Tab 220 Mg PO TID PRN 01/15/11 Reported Prilosec (Omeprazole) 20 Mg Capcr 20 Mg PO BID 01/15/11 Reported Lopressor (Metoprolol Tartrate) 50 Mg Tab 50 Mg PO BID 01/15/11 Reported Vital Signs Weight (Kilograms): 140.91 Height (Feet): 5 Height (Inches): 9 Date Time Temp Pulse Resp B/P (MAP) Pulse Ox O2 Delivery O2 Flow Rate FiO2 07/20/17 08:27 36.5 67 20 156/84 (108) 95 Room Air Physical Exam General Appearance: WD/WN, no apparent distress Respiratory/Chest: Auscultation: breath sounds normal Cardiovascular: Heart Auscultation: RRR Abdomen: Bowel Sounds: normal Inspection & Palpation: soft, non-distended, no tenderness, guarding & rebound Assessment and Plan Assessment: 72 yo CM who presents for EGD secondary to gastric ulcer. Plan: Proceed with EGD
--- NOTE | 2017-07-20 10:00 | Discharge Instructions ---
Endoscopy Patient Instructions Date / Procedure(s) Performed Jul 20, 2017. EGD Allergy Information Coded Allergies: Molds and Smuts (Verified Allergy, Severe, respiratory problems, 07/20/17) Atorvastatin (Verified Adverse Reaction, Mild, Muscle soreness, 07/20/17) Rosuvastatin (Verified Adverse Reaction, Mild, Muscle soreness, 07/20/17) Simvastatin (Verified Adverse Reaction, Mild, Muscle soreness, 07/20/17) Discharge Date / Findings Jul 20, 2017. Hiatal hernia No evidence of prior ulcer Medication Instructions Stopped Medication(s): asa OK to resume all medications today as prescribed Reported Home Medications Medications Dose Route/Sig Max Daily Dose Days Date Category Dose Instructions Prednisone 5 Mg Tab 5 Mg PO PRN 07/20/17 Reported Bydureon (Exenatide) 2 Mg Inj 2 Mg SC WK 05/12/17 Reported SUNDAYS Zyloprim (Allopurinol) 300 Mg Tab 600 Mg PO QAM 05/12/17 Reported Ultram (Tramadol HCl) 50 Mg Tab 1-2 Tabs PO Q6H PRN 05/12/17 Reported Pravastatin Sodium (Pravastatin Sod) 40 Mg Tab 0.5 Tab PO QAM 05/12/17 Reported Lasix (Furosemide) 40 Mg Tab 40 Mg PO QAM 05/12/17 Reported Glucophage (Metformin Hcl) 1,000 Mg Tab 1,000 Mg PO QAM, QPM 02/15/15 Reported Norvasc (Amlodipine Besylate) 5 Mg Tab 5 Mg PO QAM 06/03/14 Reported Alprazolam 0.25 Mg Tab 0.25 Mg PO DAILY PRN 04/15/14 Reported Flomax (Tamsulosin Hcl) 0.4 Mg Cap 0.4 Mg PO BID 04/15/14 Reported Symbicort 160-4.5 Mcg/Act (Budesonide/Formoterol Fumarate) 60 Puffs/Inhaler Aero 2 Puffs PO BID 04/15/14 Reported Glucophage (Metformin Hcl) 1,000 Mg Tab 0.5 Tab PO HS 04/15/14 Reported Glimepiride 4 Mg Tab 4 Mg PO BID 04/15/14 Reported Lisinopril 20 Mg Tab 40 Mg PO QAM 04/15/14 Reported Fish Oil 1 Gm Cap 1 Gm PO BID 04/15/14 Reported Cinnamon 500 Mg Cap 500 Mg PO BID 04/15/14 Reported Aspirin 81 Mg Tab 81 Mg PO QPM 04/15/14 Reported Aleve (Naproxen) 220 Mg Tab 220 Mg PO TID PRN 01/15/11 Reported Prilosec (Omeprazole) 20 Mg Capcr 20 Mg PO BID 01/15/11 Reported Lopressor (Metoprolol Tartrate) 50 Mg Tab 50 Mg PO BID 01/15/11 Reported Provider Instructions Activity Restrictions - No exercising or heavy lifting for 24 hours. - Do not drink alcohol the day of the procedure. - Do not drive a car or operate machinery until the day after the procedure. - Do not make any important decisions or sign important papers in 24 hours after the procedure. Following Day: - Return to full activity which may include returning to work/school. Diet Start your diet with liquids and light foods (jello, soup, juice, toast). Then eat your usual diet if not nauseated. Treatment For Common After Affects For mild abdominal pain, bloating, or excessive gas: - Rest - Eat lightly - Lie on right side Follow-Up Information Follow-up with dr. kraus as scheduled Anesthesia Information What You Should Know You have had a procedure that required some medicine to reduce anxiety and discomfort. This treatment is called moderate sedation. After receiving the treatment, you may be sleepy, but you will be able to breathe on your own. The effects of the treatment may last for several hours. Follow these instructions along with Activity/Diet recommendations noted above: * Do NOT do anything where dizziness or clumsiness would be dangerous. * Rest quietly at home today, then you can be up and about tomorrow. * Have a responsible person stay with you the rest of today. * You may have had an I.V. today. If so, you may take the dressing off later today. Recommendations Call your doctor if: * Trouble breathing * Continuous vomiting for more than 24 hours * Temperature above 101 degrees * Severe abdominal pain or bloating * Pain not relieved by pain medicine ordered * There is increased drainage or redness from any incision * A large amount of rectal bleeding greater than 2-3 tablespoons. (If you had a polyp/s removed or have hemorrhoids, a small amount of blood - from the rectum is to be expected.) * You have any unanswered questions or concerns. IN THE EVENT OF A SERIOUS EMERGENCY, GO TO THE NEAREST EMERGENCY ROOM Your discharge instructions were prepared by provider Griffin Alas. Patient Instructions Signature Page [place] Patient (or Guardian) Signature/Date: I have read and understand the instructions given to me by my caregivers. Caregiver/RN/Doctor Signature/Date: The above-named patient and/or guardian has received patient instructions on this date. + Original Patient Signature Page (only) stays with chart. Please make copy for patient.
--- NOTE | 2017-07-20 10:05 | Anesthesiology Progress Note ---
Anesthesia Post Op Note Date & Time Jul 20, 2017 at 10:05 Vital Signs Pain Intensity: 0 Vital Signs Past 12 Hours Date Time Temp Pulse Resp B/P (MAP) Pulse Ox O2 Delivery O2 Flow Rate FiO2 07/20/17 09:53 64 20 112/57 (75) 93 Room Air 07/20/17 09:40 36.5 67 20 101/48 (65) 94 Room Air 07/20/17 08:27 36.5 67 20 156/84 (108) 95 Room Air Notes Mental Status: alert / awake / arousable, participated in evaluation Pt Amnestic to Procedure: Yes Nausea / Vomiting: adequately controlled Pain: adequately controlled Airway Patency, RR, SpO2: stable & adequate BP & HR: stable & adequate Hydration State: stable & adequate Anesthetic Complications: no major complications apparent
[2017-07-20 10:06] VITALS: BP 136/73; PULSE 67; O2SAT 93
--- NOTE | 2017-07-20 10:11 | GI REPORT ---
Procedure Date: 07/20/2017 9:11 AM Procedure: Upper GI endoscopy Indications: Follow-up of acute gastric ulcer Medicines: Monitored Anesthesia Care Complications: No immediate complications. Estimated Blood Loss: Estimated blood loss: none. Procedure: Pre-Anesthesia Assessment: - Prior to the procedure, a History and Physical was performed, and patient medications and allergies were reviewed. The patient's tolerance of previous anesthesia was also reviewed. The risks and benefits of the procedure and the sedation options and risks were discussed with the patient. All questions were answered, and informed consent was obtained. Prior Anticoagulants: The patient has taken aspirin, last dose was 1 day prior to procedure. ASA Grade Assessment: III - A patient with severe systemic disease. After reviewing the risks and benefits, the patient was deemed in satisfactory condition to undergo the procedure. After obtaining informed consent, the endoscope was passed under direct vision. Throughout the procedure, the patient's blood pressure, pulse, and oxygen saturations were monitored continuously. The scope was introduced through the mouth, and advanced to the second part of duodenum. The upper GI endoscopy was accomplished without difficulty. The patient tolerated the procedure well. Findings: The esophagus was normal. A small hiatal hernia was present. The examined duodenum was normal. Impression: - Normal esophagus. - Small hiatal hernia. No evidence of prior gastric ulcer. - Normal examined duodenum. - No specimens collected. Recommendation: - Resume previous diet. - Continue present medications. - Return to GI office as previously scheduled. Griffin Alas DO 07/20/2017 10:10:41 AM This report has been signed electronically. Note Initiated On: 07/20/2017 9:11 AM I attest to the content of the Intraoperative Record and orders documented therein, exceptions below
== END | disposition home or self-care (01) ==
LOC: C.GI 07:48
PROVIDERS: ATTEND Internal Medicine
DX: Z09 Encounter for follow-up examination after completed treatment for conditions other than malignant neoplasm (principal); K44.9 Diaphragmatic hernia without obstruction or gangrene; I10 Essential (primary) hypertension; E11.9 Type 2 diabetes mellitus without complications; G47.33 Obstructive sleep apnea (adult) (pediatric); J45.909 Unspecified asthma, uncomplicated; Z88.8 Allergy status to other drugs, medicaments and biological substances; Z79.899 Other long term (current) drug therapy; J44.9 Chronic obstructive pulmonary disease, unspecified; Z79.82 Long term (current) use of aspirin; Z98.890 Other specified postprocedural states; Z87.891 Personal history of nicotine dependence; Z80.9 Family history of malignant neoplasm, unspecified

== ENCOUNTER 2023-08-02 23:45 | Inpatient (IN) ==
--- NOTE | 2023-08-03 00:09 | Emergency Department Note ---
Impression & Plan Sepsis, Leukocytosis, Elevated troponin, Acute hyponatremia, Hypomagnesemia ED Provider Note NAME: KULDIP LANTIGUA AGE: 78 SEX: M : 1945 ARRIVES VIA: Ambulance INFORMANT: Patient ED PROVIDER(S): Moody Meléndez DO CHIEF COMPLAINT: chills, weakness and fever HPI: Patient is a 78-year-old male with a past medical history of gastritis, aortic stenosis, anemia, BPH, insomnia, hypertension, hyperlipidemia, diabetes and hyponatremia that presents to the ER for fever associated with shaking chills that started tonight. He denies all other complaints with exception of cough that has been present for the past 2 weeks as he was exposed to COVID 2 weeks ago. He notes the majority of the symptoms have resolved. He does have some dysuria. notes that he has been a little confused today as well. No other exacerbating or remitting factors. ADDITIONAL HISTORY OBTAINED: Per HPI Chronic Medical/Social Conditions Affecting Care: Per HPI PAST MEDICAL HISTORY:See Below PAST SURGICAL HISTORY:See Below FAMILY HISTORY:See Below SOCIAL HISTORY:See Below HOME MEDICATIONS:See Below ALLERGIES:See Below VITALS:See Below PHYSICAL EXAMINATION: GENERAL: Sitting up in bed, alert, well appearing, well nourished, no distress, non-toxic EYE EXAM: normal conjunctiva. PERRL and EOM's intact. OROPHARYNX: no exudate, no erythema, lips, buccal mucosa, and tongue normal and mucous membranes are moist NECK: supple, no nuchal rigidity, no adenopathy, non-tender LUNGS: Clear to auscultation. Normal chest wall mechanics HEART: no murmurs, S1 normal and S2 normal ABDOMEN: abdomen soft, non-tender, normo-active bowel sounds, no masses, no rebound or guarding. UPPER EXTREMITIES: upper extremities are grossly normal. LOWER EXTREMITIES: No pitting edema. NEURO EXAM: Normal sensorium, cranial nerves II-XII intact, normal speech, no weakness of arms, no weakness of legs. No drift. Finger to nose intact. Gross sensation intact. MEDICAL DECISION MAKING: Patient is a 78-year-old male who presents to the ER for fever, confusion and tachycardia. IV was established and blood work was obtained. Labs show leukocytosis of 15,000. Mild anemia at 12. BMP with mild hyponatremia at 129. Hypomagnesia at 1.5. Troponin elevated at 31 and do not feel this consistent with ACS likely secondary to infection/demand ischemia. viral panel was negative. Patient was given azithromycin and Rocephin. Patient was given IV fluids updated bedside. Chest x-ray shows bilateral infiltrates. Admitted for further workup after discussion with the hospitalist Dr. Conner Short. UA pending upon admission. Consults/Care Managements Discussions: Per MDM Triage Nursing notes reviewed. Limited review of prior medical records performed Vital Signs: reviewed and remarkable for febrile and tachycardic Differential diagnosis: Differential diagnosis includes etiologies such as sepsis, UTI, pneumonia, metabolic, electrolyte abnormalities, cardiac sources, intracerebral event, toxicologic, neurological, as well as others were entertained. ER treatment provided: See below Diagnostics interpreted by me include EKG and cardiac monitoring as listed below: -Cardiac Monitoring: An order was placed for continuous cardiac monitoring. The monitor shows a rate of 98 with sinus rhythm. -ECG: A-fib rate of 101 Poor baseline QTc 420 -Laboratory studies:Interpreted by me as stated above in MDM and shown below. Imaging studies: Xrays: As interpreted by me: Portable AP upright 1 view chest shows bilateral infiltrate CTs show: none Procedures:none Critical Care: None Past Med/Surg History Medical History (Updated 08/03/23 @ 03:09 by Lazara Bustamante DO) SIRS (systemic inflammatory response syndrome) Community acquired pneumonia History of colon polyps FOUND ON MOST RECENT COLONOSCOPY JUN 2022 Aortic stenosis MILD PER 11/29/19 ECHO. 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 Type 2 diabetes mellitus Hypertension Hyperlipidemia Sleep apnea CPAP Surgical History History of right cataract surgery History of biopsy 12/18/2019 right forearm mass H/O vascular surgery RT LEG History of carpal tunnel release of both wrists History of prostate biopsy benign History of colonoscopy with polypectomy JUN 2022 History of esophagogastroduodenoscopy (EGD) JUN 2022 History of Mohs surgery for squamous cell carcinoma of skin History of tooth extraction all upper teeth History of wisdom tooth extraction History of tonsillectomy S/P cholecystectomy S/P cardiac cath no stents Family History Father Myocardial infarction Mother Family history of diabetes mellitus Brother Family history of diabetes mellitus Other No family history of adverse response to anesthesia Denies family history of Ovarian cancer Prostate cancer Coronary heart disease Breast cancer Colorectal cancer Social History Smoking Status: Former smoker Tobacco Type: Cigarettes Age Started Using Tobacco: 11; Age Quit Using Tobacco: 42; packs per day: 1; Cigarettes Per Day: quit 30+yrs ago; Second Hand Exposure: No; Do You Dip or Chew Tobacco: No; Hx Alcohol Use: No Hx Substance Use: No Preferred Language: Maori Communication Ability: Effective Visual Impairment: No Limitations Hearing Ability: Normal Child And Family Counselor Required: No Beliefs That Will Affect Care: None marital status: Current Living Situation: Spouse current occupational status: retired 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[facility] Feels Safe at Home: Yes Childhood Exposure to Second-Hand Smoke: No Diet: regular caffeine: Yes during the past year weight has: remained stable Dental Care, Regularly: Yes Physical Activity Frequency: Does not Exercise Seatbelt Use: always Sunscreen Use: Yes Assistive Devices: Cane, CPAP, Denture - Upper, Denture - Lower and Other Allergies Allergies Allergy/AdvReac Type Severity Reaction Status Date / Time mold Allergy Intermediate respiratory Verified 08/03/23 01:03 problems atorvastatin AdvReac Intermediate Muscle Verified 08/03/23 01:03 soreness rosuvastatin AdvReac Intermediate Muscle Verified 08/03/23 01:03 soreness simvastatin AdvReac Intermediate Muscle Verified 08/03/23 01:03 soreness Home Meds Home Medications Medication Instructions Recorded Confirmed cinnamon bark 500 mg capsule 500 mg PO BID 01/15/19 08/03/23 (Cinnamon) aspirin 81 mg tablet,delayed 81 mg PO HS 02/26/19 08/03/23 release (Jie Low Dose Aspirin) mecobalamin (vitamin B12) 1,000 1,000 mcg sublingual BID 02/26/19 08/03/23 mcg disintegrating tablet,sublingual ascorbic acid (vitamin C) 500 mg 500 mg PO QAM 03/13/22 08/03/23 tablet (Vitamin C) cholecalciferol (vitamin D3) 50 50 mcg PO DAILY 03/13/22 08/03/23 mcg (2,000 unit) capsule (Vitamin D3) ferrous sulfate 325 mg (65 mg 325 mg PO QAM 03/13/22 08/03/23 iron) tablet omega-3 fatty acids 1,000 mg 1,000 mg PO BID 03/13/22 08/03/23 capsule fluticasone 500 mcg-salmeterol 50 1 inh inhalation BID 06/03/22 08/03/23 mcg/dose blistr powdr for inhalation (Wixela Inhub) tramadol 50 mg tablet 50 mg PO BID PRN Pain 10/27/22 08/03/23 allopurinol 300 mg tablet 300 mg PO BID #180 tabs 02/23/23 08/03/23 furosemide 20 mg tablet 20 mg PO 3XWK 08/03/23 08/03/23 magnesium oxide 420 mg tablet 420 mg PO BID 08/03/23 08/03/23 metformin 1,000 mg tablet 1,000 mg PO BID 08/03/23 08/03/23 potassium chloride 10 mEq 10 meq PO DAILY 08/03/23 08/03/23 capsule,extended release pravastatin 20 mg tablet 20 mg PO DAILY 08/03/23 08/03/23 semaglutide 1 mg/dose (4 mg/3 mL) 1 mg subcut WK 08/03/23 08/03/23 subcutaneous pen injector (Ozempic) Previous Rx's Medication Instructions Recorded OneTouch Delica Lancets 33 gauge #400 ea 01/11/20 (lancets) blood sugar diagnostic (OneTouch #50 ea 11/13/21 Verio test strips) albuterol sulfate 90 mcg/actuation 1 inh inhalation QID PRN shortness 03/13/22 aerosol inhaler of breath or wheezing #6.7 grams lisinopril 20 mg tablet 40 mg (2 x 20 mg) PO QAM 90 days 09/06/22 #180 tabs metoprolol tartrate 50 mg tablet 50 mg PO BID hypertension #180 09/06/22 tabs furosemide 40 mg tablet 40 mg PO QAM #90 tabs 12/30/22 omeprazole 40 mg capsule,delayed 40 mg PO DAILY #30 caps 01/04/23 release tamsulosin 0.4 mg capsule 0.4 mg PO BID #180 caps 03/22/23 Results & Data (ED) Vital Signs Vital Signs - 24 hr 08/02/23 23:49 08/03/23 00:30 08/03/23 00:44 Temperature 38.9 C H 38.3 C H Temperature Source Oral Oral Pulse Rate 96 H Pulse Rate [Apical] 104 H Respiratory Rate 20 21 Respiratory Effort / Characteristics Non-Labored Spontaneous Respiratory Depth Normal Respiratory Pattern Regular Blood Pressure 149/84 H Blood Pressure [Right Arm] 132/76 Blood Pressure Mean 105 Blood Pressure Mean [Right Arm] 94 Pulse Oximetry 92 94 94 Oxygen Delivery Method Room Air Room Air Room Air Sepsis Recent Fever Within 48 Hours Yes Sepsis New/Unexplained Change in Mental Status Yes Sepsis Action Taken by Nursing Physician Notified 08/03/23 00:52 08/03/23 00:57 08/03/23 01:00 Temperature Temperature Source Pulse Rate 106 H Pulse Rate [Apical] 95 H 103 H Respiratory Rate 21 22 Respiratory Effort / Characteristics Respiratory Depth Respiratory Pattern Blood Pressure Blood Pressure [Right Arm] 100/59 L 100/59 L Blood Pressure Mean Blood Pressure Mean [Right Arm] 72 72 Pulse Oximetry 94 94 Oxygen Delivery Method Room Air Room Air Sepsis Recent Fever Within 48 Hours Sepsis New/Unexplained Change in Mental Status Sepsis Action Taken by Nursing 08/03/23 01:15 08/03/23 01:30 08/03/23 03:00 Temperature Temperature Source Pulse Rate Pulse Rate [Apical] 109 H 98 H 95 H Respiratory Rate 22 16 21 Respiratory Effort / Characteristics Respiratory Depth Respiratory Pattern Blood Pressure Blood Pressure [Right Arm] 133/63 122/69 116/62 Blood Pressure Mean Blood Pressure Mean [Right Arm] 86 86 80 Pulse Oximetry 94 94 93 Oxygen Delivery Method Room Air Room Air Room Air Sepsis Recent Fever Within 48 Hours Sepsis New/Unexplained Change in Mental Status Sepsis Action Taken by Nursing Laboratory Data 08/03/23 00:42 08/03/23 00:42 Lab Results 08/03/23 08/03/23 Range/Units 00:42 01:30 WBC 15.73 H (4.8-10.8) K/ul RBC 4.03 L (4.70-6.10) M/uL Hgb 12.7 L (14.0-18.0) g/dl Hct 37.3 L (42.0-52.0) % MCV 92.6 (80.0-100.0) fL MCH 31.5 (25.0-34.0) pg MCHC 34.0 (32.0-36.0) g/dL RDW Std Deviation 53.1 H (36.4-46.3) fL RDW Coeff of Valdo 15.9 H (11.5-14.5) % Plt Count 187 (130-400) K/uL MPV 10.1 (9.4-12.4) fL Immature Gran % (Auto) 0.6 % Neut % (Auto) 88.6 % Lymph % (Auto) 5.8 % [place] % (Auto) 4.0 % Eos % (Auto) 0.7 % Baso % (Auto) 0.3 % Neut # (Auto) 13.94 H (1.40-6.50) K/uL Lymph # (Auto) 0.91 L (1.20-3.40) K/uL [place] # (Auto) 0.63 H (0.11-0.59) K/uL Eos # (Auto) 0.11 (0.00-0.50) K/uL Baso # (Auto) 0.04 (0.00-0.20) K/uL Immature Gran # (Auto) 0.10 (0.01-0.20) K/uL Sodium 129 L (136-145) mmol/L Potassium 4.9 (3.5-5.1) mmol/L Chloride 92 L (98-107) mmol/L Carbon Dioxide 28 (21-32) mmol/L Anion Gap 9 (3-11) BUN 31 H (6-23) mg/dl Creatinine 1.34 (0.6-1.4) mg/dl Est Cr Clr Drug Dosing 57.8 ml/min Est GFR ( Amer) 58.4 ml/min Est GFR (Non-Af Amer) 50.4 ml/min BUN/Creatinine Ratio 23.1 H (10-20) Glucose 224 H (70-99(Fasting)) mg/dl Lactate 2.0 (0.4-2.0) mmol/L Calcium 10.4 H (8.6-10.3) mg/dl Magnesium 1.5 L (1.7-2.4) mg/dl Total Bilirubin 0.8 (0.2-1.0) mg/dl Direct Bilirubin 0.2 (0-0.2) mg/dl AST 22 (13-39) U/L ALT 16 (7-52) U/L Alkaline Phosphatase 194 H (34-104) U/L Troponin I High Sens 31.2 H (0-20) pg/ml Total Protein 7.5 (6.0-8.3) gm/dl Albumin 4.3 (3.4-5.0) gm/dl Procalcitonin 0.03 (0-0.5) ng/ml Adenovirus (PCR) Not Detected (NotDetected) B. pertussis DNA (PCR) Not Detected (NotDetected) B.parapertussis DNA PCR Not Detected (NotDetected) C. pneumoniae DNA (PCR) Not Detected (NotDetected) Coronavirus OC43 (PCR) Not Detected (NotDetected) Coronavirus HKU1 (PCR) Not Detected (NotDetected) Coronavirus 229E (PCR) Not Detected (NotDetected) SARS-CoV-2 (PCR) Not Detected (NotDetected) Coronavirus NL63 (PCR) Not Detected (NotDetected) Human Metapneumovir PCR Not Detected (NotDetected) Influenza Type A (PCR) Not Detected (NotDetected) Influenza Type B (PCR) Not Detected (NotDetected) M. pneumoniae (PCR) Not Detected (NotDetected) Parainfluenza 1 (PCR) Not Detected (NotDetected) Parainfluenza 2 (PCR) Not Detected (NotDetected) Parainfluenza 3 (PCR) Not Detected (NotDetected) Parainfluenza 4 (PCR) Not Detected (NotDetected) RSV (PCR) Not Detected (NotDetected) Entero/Rhino (PCR) Not Detected (NotDetected) Administered Medications Azithromycin 500 mg/ Dextrose 255 mls @ 127.5 mls/hr IV NOW STA Stop: 08/03/23 03:15 Last Admin: 08/03/23 02:21 Dose: 127.5 mls/hr Documented By: MED Discontinued Medications Sodium Chloride (Nss) 500 mls @ 999 mls/hr IV .Q31M ONE Stop: 08/03/23 00:39 Last Infusion: 08/03/23 01:30 Dose: Infused Documented By: Admin: 08/03/23 00:48 Dose: 999 mls/hr Documented By: MARCOS Ceftriaxone Sodium (Rocephin) 2,000 mg in 50 mls @ 100 mls/hr IV NOW STA Stop: 08/03/23 00:38 Last Infusion: 08/03/23 02:13 Dose: Infused Documented By: collection clerk: 08/03/23 01:37 Dose: 100 mls/hr Documented By: MARCOS Sodium Chloride (Nss) 1,000 mls @ 999 mls/hr IV .Q1H1M ONE Stop: 08/03/23 02:48 Last Infusion: 08/03/23 02:16 Dose: 0 mls/hr Documented By: collection clerk: 08/03/23 02:13 Dose: 999 mls/hr Documented By: MED Discharge Plan Visit Data Chief Complaint: Fever Stated Complaint: FEVER, VOICES NO OTHER COMPLAINTS ED Provider: Moody Meléndez Discharge Problem: Sepsis, Leukocytosis, Elevated troponin, Acute hyponatremia, Hypomagnesemia Forms Stand Alone Forms: My [facility] [place] Pretty Simple Prescriptions Prescriptions: No Action (DME) lancets [OneTouch Delica Lancets] 33 gauge misc See Rx Instructions .ROUTE .MEDSUPPLY Qty: 400 3RF Rx Instructions: use to test 4 times daily (DME) OneTouch Verio test strips Strip See Rx Instructions .ROUTE .MEDSUPPLY Qty: 50 11RF Rx Instructions: USE TO TEST ONCE DAILY E11.9 PRN lisinopril 20 mg tablet 40 mg PO QAM 90 Days Qty: 180 3RF metoprolol tartrate 50 mg tablet 50 mg PO BID Qty: 180 3RF furosemide 40 mg tablet 40 mg PO QAM Qty: 90 3RF omeprazole 40 mg capsule,delayed release(DR/EC) 40 mg PO DAILY Qty: 30 5RF allopurinol 300 mg tablet 300 mg PO BID Qty: 180 tamsulosin 0.4 mg capsule 0.4 mg PO BID Qty: 180 3RF cinnamon bark [Cinnamon] 500 mg capsule 500 mg PO BID tramadol 50 mg tablet 50 mg PO BID PRN (Reason: Pain) aspirin [Jie Low Dose Aspirin] 81 mg Tablet,Delayed Release (Dr/Ec) 81 mg PO HS mecobalamin (vitamin B12) 1,000 mcg tablet,disintegrating 1,000 mcg SL BID omega-3 fatty acids 1,000 mg Capsule 1,000 mg PO BID ascorbic acid (vitamin C) [Vitamin C] 500 mg Tablet 500 mg PO QAM ferrous sulfate 325 mg (65 mg iron) Tablet 325 mg PO QAM cholecalciferol (vitamin D3) [Vitamin D3] 50 mcg (2,000 unit) Capsule 50 mcg PO DAILY albuterol sulfate 90 mcg/actuation HFA aerosol inhaler 1 inh inhalation QID PRN (Reason: shortness of breath or wheezing) Qty: 6.7 0RF fluticasone propion-salmeterol [Wixela Inhub] 500-50 mcg/dose blister with device 1 inh inhalation BID potassium chloride 10 mEq Capsule, Extended Release 10 meq PO DAILY magnesium oxide 420 mg Tablet 420 mg PO BID metformin 1,000 mg tablet 1,000 mg PO BID pravastatin 20 mg Tablet 20 mg PO DAILY Ozempic 1 mg/dose (4 mg/3 mL) Pen Injector 1 mg SUBCUT WK Rx Instructions: SUNDAYS furosemide 20 mg tablet 20 mg PO 3XWK Rx Instructions: TUE, TUE, & TUE, TAKES WITH 40 MG TAB TO EQUAL 60 MG. Referrals Referrals: Grady Duncan MD [Primary Care Provider] - Discharge Problem: Sepsis Qualifiers: Sepsis type: sepsis due to unspecified organism Sepsis acute organ dysfunction status: unspecified Qualified Code(s): A41.9 - Sepsis, unspecified organism Leukocytosis Qualifiers: Leukocytosis type: unspecified Qualified Code(s): D72.829 - Elevated white blood cell count, unspecified
[2023-08-03] MEDS: SODIUM CHLORIDE 0.9% 500 ML IV ONE (00:48)
[2023-08-03 01:08] LABS: Basophils # (auto) 0.04 K/uL (0.00-0.20); Basophils % (auto) 0.3 %; Eosinophils # (auto) 0.11 K/uL (0.00-0.50); Eosinophils % (auto) 0.7 %; Hematocrit (blood only) 37.3 % (42.0-52.0); Hemoglobin 12.7 g/dl (14.0-18.0); Immature Granulocytes % (auto) 0.6 %; Lymphocytes # (auto) 0.91 K/uL (1.20-3.40); Lymphocytes % (auto) 5.8 %; Mean Corpuscular Hemoglobin 31.5 pg (25.0-34.0); Mean Corpuscular Volume 92.6 fL (80.0-100.0); Mean Platelet Volume 10.1 fL (9.4-12.4); Monocytes # (auto) 0.63 K/uL (0.11-0.59); Neutrophils # (auto) 13.94 K/uL (1.40-6.50); Neutrophils % (auto) 88.6 %; Platelet Count 187 K/uL (130-400); RDW Coefficient of Variation 15.9 % (11.5-14.5); RDW Standard Deviation 53.1 fL (36.4-46.3); Red Blood Count 4.03 M/uL (4.70-6.10); White Blood Count 15.73 K/ul (4.8-10.8)
[2023-08-03 01:25] LABS: Albumin Level 4.3 gm/dl (3.4-5.0); BUN Creatinine Ratio 23.1 (10-20); Bilirubin Direct 0.2 mg/dl (0-0.2); Bilirubin,Total 0.8 mg/dl (0.2-1.0); Calcium 10.4 mg/dl (8.6-10.3); Creatinine Clr Calc Pharmacy 57.8 ml/min; Est GFR (African American) 58.4 ml/min; Est GFR (Non-African American) 50.4 ml/min; Magnesium 1.5 mg/dl (1.7-2.4); Potassium 4.9 mmol/L (3.5-5.1); Total Protein 7.5 gm/dl (6.0-8.3)
[2023-08-03 01:32] LABS: Troponin I High Sensitivity 31.2 pg/ml (0-20)
[2023-08-03] MEDS: cefTRIAXone SODIUM 2,000 MG/50 ML BAG IV STA (01:37)
--- NOTE | 2023-08-03 01:51 | History & Physical Report ---
"Date of Service August 03, 2023 Assessment & Plan (1) Community acquired pneumonia: (2) Sepsis: (3) Hypomagnesemia: (4) Elevated troponin: (5) Chronic venous insufficiency: (6) Anemia: (7) Asthma: (8) BPH with obstruction/lower urinary tract symptoms: (9) GERD (gastroesophageal reflux disease): (10) Gout, arthritis: (11) Type 2 diabetes mellitus: (12) Hypertension: (13) Hyperlipidemia: (14) Sleep apnea: Plan Summary: Mango is a 78M w/ PMH of MR, GIST of Stomach, , Castillo esophagus, chronic venous insufficiency, anemia, asthma, BPH w/ LUTS, diabetic peripheral neuropathy, GERD, PAD, T2DM, HTN, HLD, JOSEFINA, and chronic hyponatremia who presents for evaluation of a cough and chills. ED Course: IV Rocephin, IV Azithromycin, 500cc NSS Sepsis likely 2/2 Pulmonary Source * Patient with likely Viral URI 2 weeks ago, now with worsening cough, congestion, fevers, chills, weakness, and confusion * CXR concerning for bilateral pulmonary infiltrates, potential worse in RLL * Respiratory BioFire Negative, Procal negative, Lactate negative * Sepsis: Patient with tachycardia, leukocytosis, and fever w/ suspected pulmonary source * Blood Cultures Pending * S/p 500 cc NSS, clinical euvolemic to hypervolemic on exam, hold additional fluid resuscitation given cardiac hx, hold diuretic given sepsis * S/p IV Ceftriaxone and Azithromycin in ED, continue on admission * Mucinex, Albuterol, and Duonebs ordered PRN for sx relief, patient with asthma hx * Pulmonary toilet ordered New Onset A Fib | Elevated Troponin * Rising Trop likely 2/2 demand from active infection vs new A Fib * Trop 31.2 on admission, repeat up to 99.8, trend to peak * No chest pain or dyspnea * Echo 08/02/22 w/ normal LV function, mild LVH, L Atrial enlargement, mild and mild MR, repeat Echo ordered * Maintain K of 4/Mg of 2 (repletion ordered) * DVT Ppx ordered, will likely need full anticoagulation, CHADSVASC 4 * BP soft, could consider Digoxin for rate control if needed and BP remains low * Cardiology consulted, appreciate recommendations BPH w/ LUTS | Difficulty Emptying Bladder * No hematuria, dysuria, frequency, or suprapubic pressure * Patient/ note increasing difficulty emptying bladder * Difficulty providing urine sample/nursing unable to obtain PVR overnight * 30cc urine sample provided, urinalysis pending w/ culture if indicated * Potential for underlying urinary infection given patient's acute confusion and weakness Hyponatremia, Acute on Chronic * Baseline 132, currently 129 * Potential association w/ volume status +/- diuretic use * Patient euvolemic to mildly hypervolemic on exam (baseline edema, mucous membranes moist, no JVD) * S/p 500 cc NSS, diuretic hold, follow fluid status Chronic Conditions: * Asthma: Albuterol ordered PRN * Chronic Anemia: Hgb stable at 12.7, Iron supplementation at home * Gout: Continue allopurinol * HTN: Hold antihypertensives (Lisinopril/Metoprolol) for hypotension, would restart Metoprolol when stable d/t new AFib * DM2: Metformin and Ozempic held, SSI ordered w/ checks ACHS * Chronic Hypomagnesemia: Continue PO supplement * GERD: Continue PPI * HLD: Continue statin * Chronic Pain: continue Tramadol PRN Code Status:Full Diet:DM2/HH IVF:S/p 500 cc NSS, held diuretic DVT PPx:Lovenox CM: None Dispo: Med/Tele History of Present Illness Chief Complaint: Cough/Chills Primary Care Provider: MD Mango Harley is a 78M w/ PMH of MR, GIST of Stomach, , barretts esophagus, chronic venous insufficiency, anemia, asthma, BPH w/ LUTS, diabetic peripheral neuropathy, GERD, PAD, T2DM, HTN, HLD, JOSEFINA, and chronic hyponatremia who presents for evaluation of a cough and chills. Presented this evening due to uncontrollable chills and shakes, attempted to warm up with electric heater at home. notes some confusion and difficulty ambulating. Home temperature was noted to be 101. Had gone out to [place] to visit grandchildren 2 weeks ago, but the time he got home he (and his ) had upper respiratory symptoms, most notably a cough. Patient still has a lingering non-productive cough w/o pleuritic pain. No C-19 history. Has a history of BPH with LUTS and cant fully empty his bladder, denies burning or pressure with urination. Patient experiences chronic loose stools for which he takes probiotics and fiber. Patient notes that over the last 4 years he has lost 120 lbs on Ozempic, he was started on this medication for DM2 and his A1c is now at 6. He notes that he often has no appetite and does not eat much. Patient has a history of /MR/Venous insufficiency and takes a diuretic every other day. P atient denies any worsening chest pain, dyspnea, or lower extremity edema. He is not experiencing orthopnea or claudication. Patient denies any history of heart failure. Allergies Allergy/AdvReac Type Severity Reaction Status Date / Time mold Allergy Intermediate respiratory Verified 08/03/23 01:03 problems atorvastatin AdvReac Intermediate Muscle Verified 08/03/23 01:03 soreness rosuvastatin AdvReac Intermediate Muscle Verified 08/03/23 01:03 soreness simvastatin AdvReac Intermediate Muscle Verified 08/03/23 01:03 soreness Home Medications Medication Instructions Recorded Confirmed Type cinnamon bark 500 mg capsule 500 mg PO BID 01/15/19 08/03/23 History (Cinnamon) aspirin 81 mg tablet,delayed 81 mg PO HS 02/26/19 08/03/23 History release (Jie Low Dose Aspirin) mecobalamin (vitamin B12) 1,000 1,000 mcg sublingual BID 02/26/19 08/03/23 History mcg disintegrating tablet,sublingual OneTouch Hodan Lancets 33 gauge #400 ea 01/11/20 05/16/23 Rx (lancets) blood sugar diagnostic (OneTouch #50 ea 11/13/21 05/16/23 Rx Verio test strips) albuterol sulfate 90 mcg/actuation 1 inh inhalation QID PRN shortness 03/13/22 08/03/23 Rx aerosol inhaler of breath or wheezing #6.7 grams ascorbic acid (vitamin C) 500 mg 500 mg PO QAM 03/13/22 08/03/23 History tablet (Vitamin C) cholecalciferol (vitamin D3) 50 50 mcg PO DAILY 03/13/22 08/03/23 History mcg (2,000 unit) capsule (Vitamin D3) ferrous sulfate 325 mg (65 mg 325 mg PO QAM 03/13/22 08/03/23 History iron) tablet omega-3 fatty acids 1,000 mg 1,000 mg PO BID 03/13/22 08/03/23 History capsule fluticasone 500 mcg-salmeterol 50 1 inh inhalation BID 06/03/22 08/03/23 History mcg/dose blistr powdr for inhalation (Wixela Inhub) lisinopril 20 mg tablet 40 mg (2 x 20 mg) PO QAM 90 days 09/06/22 08/03/23 Rx #180 tabs metoprolol tartrate 50 mg tablet 50 mg PO BID hypertension #180 09/06/22 08/03/23 Rx tabs tramadol 50 mg tablet 50 mg PO BID PRN Pain 10/27/22 08/03/23 History furosemide 40 mg tablet 40 mg PO QAM #90 tabs 12/30/22 08/03/23 Rx omeprazole 40 mg capsule,delayed 40 mg PO DAILY #30 caps 01/04/23 08/03/23 Rx release allopurinol 300 mg tablet 300 mg PO BID #180 tabs 02/23/23 08/03/23 History tamsulosin 0.4 mg capsule 0.4 mg PO BID #180 caps 03/22/23 08/03/23 Rx furosemide 20 mg tablet 20 mg PO 3XWK 08/03/23 08/03/23 History magnesium oxide 420 mg tablet 420 mg PO BID 08/03/23 08/03/23 History metformin 1,000 mg tablet 1,000 mg PO BID 08/03/23 08/03/23 History potassium chloride 10 mEq 10 meq PO DAILY 08/03/23 08/03/23 History capsule,extended release pravastatin 20 mg tablet 20 mg PO DAILY 08/03/23 08/03/23 History semaglutide 1 mg/dose (4 mg/3 mL) 1 mg subcut WK 08/03/23 08/03/23 History subcutaneous pen injector (Ozempic) Past Med/Surg History Medical History SIRS (systemic inflammatory response syndrome) Community acquired pneumonia History of colon polyps FOUND ON MOST RECENT COLONOSCOPY JUN 2022 Aortic stenosis MILD PER 11/29/19 ECHO. 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 Type 2 diabetes mellitus Hypertension Hyperlipidemia Sleep apnea CPAP Surgical History History of right cataract surgery History of biopsy 12/18/2019 right forearm mass H/O vascular surgery RT LEG History of carpal tunnel release of both wrists History of prostate biopsy benign History of colonoscopy with polypectomy JUN 2022 History of esophagogastroduodenoscopy (EGD) JUN 2022 History of Mohs surgery for squamous cell carcinoma of skin History of tooth extraction all upper teeth History of wisdom tooth extraction History of tonsillectomy S/P cholecystectomy S/P cardiac cath no stents Family History Father Myocardial infarction Mother Family history of diabetes mellitus Brother Family history of diabetes mellitus Other No family history of adverse response to anesthesia Denies family history of Ovarian cancer Prostate cancer Coronary heart disease Breast cancer Colorectal cancer Social History Smoking Status: Former smoker Tobacco Type: Cigarettes Age Started Using Tobacco: 11; Age Quit Using Tobacco: 42; packs per day: 1; Cigarettes Per Day: quit 30+yrs ago; Second Hand Exposure: No; Do You Dip or Chew Tobacco: No; Hx Alcohol Use: No Hx Substance Use: No Preferred Language: Bruneian Communication Ability: Effective Visual Impairment: No Limitations Hearing Ability: Normal Incident Handler Required: No Beliefs That Will Affect Care: None marital status: Current Living Situation: Spouse current occupational status: retired 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 Feels Safe at Home: Yes Childhood Exposure to Second-Hand Smoke: No Diet: regular caffeine: Yes during the past year weight has: remained stable Dental Care, Regularly: Yes Physical Activity Frequency: Does not Exercise Seatbelt Use: always Sunscreen Use: Yes Assistive Devices: Cane, Denture - Upper and Glasses Physical Exam Physical Exam: Gen: NAD, alert, interactive, AO x 4, comfortable in bed HEENT: Supple, no LAD, no thyromegaly, no JVD Resp:Non-labored, occasional cough, no wheezing, course air sounds (worst at bases) CV:tachycardic, regular rate, normal S1/S2, 2/6 systolic murmur at LUSB/LLSB Abd: Soft, non-distended, no TTP, normoactive bowels, no masses Extr: 2+ dp bilaterally, trace non-pitting edema, significant LE varicosities Skin: No rashes lesions or erythema Results & Data Results & Data Vital Signs (Past 12 Hours) Vital Signs Temp Pulse Pulse Resp BP BP Pulse Ox 08/03/23 01:30 98 H 16 122/69 94 08/03/23 01:15 109 H 22 133/63 94 08/03/23 01:00 103 H 22 100/59 L 94 08/03/23 00:57 95 H 21 100/59 L 94 08/03/23 00:52 106 H 08/03/23 00:44 94 08/03/23 00:30 38.3 C H 104 H 21 132/76 94 08/02/23 23:49 38.9 C H 96 H 20 149/84 H 92 O2 Del Method 08/03/23 01:30 Room Air 08/03/23 01:15 Room Air 08/03/23 01:00 Room Air 08/03/23 00:57 Room Air 08/03/23 00:52 08/03/23 00:44 Room Air 08/03/23 00:30 Room Air 08/02/23 23:49 Room Air Supervising Physician Co-Signing Physician Notes Attending addendum: I have physically seen this patient, have supervised the medical residents activities, and agree with the H&P unless as otherwise noted. Assessment and Plan: Sepsis due to pneumonia- Chest x-ray showing bilateral pulmonary infiltrates and pulmonary edema Initial symptoms began as a viral URI 2 weeks ago Duonebs every 4 hours while awake and every 2 hours when necessary. Guaifenesin extended release 12 mg p.o. twice daily Ceftriaxone 2 g IV daily Azithromycin 500 mg IV daily Follow sputum Gram stain and culture New onset atrial fibrillation with rate control/elevated troponin- The patient will be admitted to telemetry for serial cardiac enzymes, serial EKG's, cardiac rhythm monitoring and a 2-D echocardiogram with Dopplers. Troponin initially 31.2 with follow-up 99.8 Most recent echo was on 08/02/2022 with normal LV function Consult to cardiology BPH with LUTS/bladder outlet symptoms- Follow urine culture and sensitivity Antibiotic coverage as noted above Remaining orders and notations as noted Resident Activity Tracking Resident Involvement: Resident Care Provided Care Provided: Adult [facility] Medicine (night) (2) Sepsis Sepsis acute organ dysfunction status: unspecified Sepsis type: sepsis due to unspecified organism Qualified Code(s): A41.9 - Sepsis, unspecified organism"
[2023-08-03 01:53] LABS: Adenovirus PCR Not Detected (NotDetected); Bordetella parapertussis PCR Not Detected (NotDetected); Bordetella pertussis PCR Not Detected (NotDetected); Chlamydia pneumoniae PCR Not Detected (NotDetected); Coronavirus 229E PCR Not Detected (NotDetected); Coronavirus CoV-2 (COVID19)PCR Not Detected (NotDetected); Coronavirus HKU1 PCR Not Detected (NotDetected); Coronavirus NL63 PCR Not Detected (NotDetected); Coronavirus OC43PCR Not Detected (NotDetected); Human Metapneumovirus PCR Not Detected (NotDetected); Influenza A PCR Not Detected (NotDetected); Influenza B PCR Not Detected (NotDetected); Mycoplasma pneumoniae PCR Not Detected (NotDetected); Parainfluenza Virus 1 PCR Not Detected (NotDetected); Parainfluenza Virus 2 PCR Not Detected (NotDetected); Parainfluenza Virus 3 PCR Not Detected (NotDetected); Parainfluenza Virus 4 PCR Not Detected (NotDetected); Respiratory Syncytial VirusPCR Not Detected (NotDetected); Rhinovirus/Enterovirus PCR Not Detected (NotDetected)
[2023-08-03] MEDS: SODIUM CHLORIDE 0.9% 1,000 ML IV ONE (02:13)
[2023-08-03] MEDS: AZITHROMYCIN 500 MG in DEXTROSE 5% 250 ML IV STA (02:21)
[2023-08-03] MEDS ORDERED: POLYETHYLENE (MIRALAX) 17 GM PACK PO PRN (03:51)
[2023-08-03] MEDS ORDERED: ALBUT/IPRATROP 3MG/0.5MG NEB 3 ML VIAL NEB PRN (03:51)
[2023-08-03] MEDS ORDERED: ONDANSETRON INJ 2 MG/ML 2 ML VIAL IV PRN (03:51)
[2023-08-03] MEDS ORDERED: traMADol HCL 50 MG TABLET PO PRN (03:51)
[2023-08-03] MEDS ORDERED: ALBUTEROL HFA 8 GM INHALER INH PRN (03:51)
[2023-08-03 05:02] LABS: Appearance Urine Turbid (Clear); Bacteria Urine Automated 2+ (Negative); Bilirubin Urine Negative (Negative); Blood Urine 3+ (Negative); Color Urine Orange; Glucose Urine UA Negative (Negative); Ketones Urine Negative (Negative); Leukocyte Esterase Urine 3+ (Negative); Nitrite Urine Negative (Negative); Protein Urine 2+ (Negative); Specific Gravity Urine 1.014 (1.000-1.030); Urobilinogen Urine Negative (Negative); WBC Urine Automated >30 /hpf (0-5)
[2023-08-03 05:18] LABS: RBC Urine Automated >30 /hpf (0-4)
[2023-08-03] MEDS ORDERED: CARBOHYDRATES FOR HYPOGLYCEMIA PO PRN (05:22)
[2023-08-03] MEDS ORDERED: GLUCAGON FOR INJ 1 MG VIAL SQ PRN (05:22)
[2023-08-03] MEDS ORDERED: GLUCOSE 10 TAB/TUBE PO PRN (05:22)
[2023-08-03] MEDS ORDERED: DEXTROSE 50% 50 ML SYRINGE IV PRN (05:22)
[2023-08-03] MEDS ORDERED: GLUCOSE 40% GEL 15 GM TUBE PO PRN (05:22)
[2023-08-03] MEDS: ENOXAPARIN INJ 40 MG/0.4 ML SYR SQ SCH (05:26)
[2023-08-03] MEDS: ACETAMINOPHEN 500 MG TAB PO STA (05:26)
[2023-08-03] MEDS: MAGNESIUM SULFATE / D5W 1 GM/100 ML BAG IV SCH (05:27)
--- NOTE | 2023-08-03 07:25 | XRay Report ---
XR chest 1V portable CLINICAL HISTORY: Sepsis TECHNIQUE: Single frontal radiograph of the chest was obtained. Comparison: Comparison is made to chest radiograph 03/13/2022 FINDINGS: No lines and tubes are seen. Cardiomegaly is noted. Prominence and cephalization of the vasculature i s seen. No evidence of pleural effusion or pneumothorax. IMPRESSION: Cardiomegaly and mild pulmonary edema. No evidence of pneumonia. ACT 112: Negative or not required by law. Electronically signed by: Nayan Kim M.D. 08/03/2023 7:24 AM
[2023-08-03] MEDS ORDERED: Heparin IV Adult Wt-Based Standard w/ INITIAL Bolus Protocol IV STA (07:37)
[2023-08-03] MEDS ORDERED: HEPARIN SOD (PORCINE) 1000 UNIT/ML IV ONE (07:52)
[2023-08-03] MEDS: PANTOprazole 40 MG TAB PO SCH (08:30)
[2023-08-03] MEDS: CYANOCOBALAMIN (B-12) 500 MCG TABLET PO SCH (08:31)
[2023-08-03] MEDS: guaiFENesin 600 MG TABCR PO SCH (08:31)
[2023-08-03] MEDS: ASCORBIC ACID 500 MG TAB PO SCH (08:31)
[2023-08-03] MEDS: POTASSIUM CHLORIDE 10 MEQ TABCR PO SCH (08:31)
[2023-08-03] MEDS: MAGNESIUM OXIDE 400 MG TAB PO SCH (08:31)
[2023-08-03] MEDS: CHOLECALCIFEROL 25 MCG (1000 UNITS) TAB PO SCH (08:31)
[2023-08-03] MEDS: TAMSULOSIN HCL 0.4 MG CAP PO SCH (08:31)
[2023-08-03] MEDS: PRAVASTATIN SOD 20 MG TAB PO SCH (08:31)
[2023-08-03] MEDS: ADVANCED PROBIOTIC 625 MG CAPSULE PO SCH (08:31)
[2023-08-03] MEDS: allopurinoL 300 MG TAB PO SCH (08:31)
[2023-08-03] MEDS: FLUTICASONE/VILANTEROL 100/25MCG 14 PUFFS/INHALER INH SCH (08:32)
[2023-08-03] MEDS: OMEGA-3 (PURIFIED FISH OIL) 1 GM CAP PO SCH (08:32)
[2023-08-03 08:53] LABS: INR 1.1 (0.9-1.1); Partial Thromboplastin Ratio 1.3; Partial Thromboplastin Time 37 Seconds (21-31); Prothrombin Time 11.9 Seconds (9.0-12.0)
[2023-08-03] MEDS: INSULIN ASPART PER UNIT CHARGE SC SCH (08:53)
[2023-08-03 08:57] LABS: Hematocrit (blood only) 32.1 % (42.0-52.0); Hemoglobin 11.3 g/dl (14.0-18.0); Mean Corpuscular Hemoglobin 31.7 pg (25.0-34.0); Mean Corpuscular Hgb Conc 35.2 g/dL (32.0-36.0); Mean Corpuscular Volume 89.9 fL (80.0-100.0); Mean Platelet Volume 9.7 fL (9.4-12.4); Platelet Count 160 K/uL (130-400); RDW Coefficient of Variation 15.7 % (11.5-14.5); RDW Standard Deviation 51.7 fL (36.4-46.3); Red Blood Count 3.57 M/uL (4.70-6.10); White Blood Count 17.89 K/ul (4.8-10.8)
[2023-08-03] MEDS ORDERED: lisinopril 40 MG TAB PO SCH (09:00)
[2023-08-03] MEDS ORDERED: METOPROLOL TARTRATE 50 MG TAB PO SCH (09:00)
[2023-08-03 09:25] LABS: Basophils # (auto) 0.03 K/uL (0.00-0.20); Basophils % (auto) 0.2 %; Eosinophils # (auto) 0.01 K/uL (0.00-0.50); Eosinophils % (auto) 0.1 %; Immature Granulocytes # (auto) 0.12 K/uL (0.01-0.20); Immature Granulocytes % (auto) 0.7 %; Lymphocytes # (auto) 1.08 K/uL (1.20-3.40); Monocytes # (auto) 0.51 K/uL (0.11-0.59); Monocytes % (auto) 2.9 %; Neutrophils # (auto) 16.14 K/uL (1.40-6.50); Neutrophils % (auto) 90.1 %
[2023-08-03] MEDS: HEPARIN SODIUM/DEXTROSE 25,000 UNITS/500 ML BAG IV SCH (09:50)
[2023-08-03] MEDS: Heparin IV Adult Wt-Based Standard *NO* INITIAL Bolus Protocol IV STA (10:16)
--- NOTE | 2023-08-03 15:08 | Communication Note ---
Date of Service: August 03, 2023 Please refer to the H&P dictated earlier this morning for details of presentation on admission. In brief, the patient presented with fevers and chills. Chest x-ray showed pneumonia. Patient was started on IV antibiotics. He was also noted to have new onset atrial fibrillation. Patient is started on IV heparin drip. He was having trouble urinating because of his BPH symptoms. Mckeon catheter has been inserted. His urine seems to be bloody. Asked the nurse to keep an eye out. If the urine becomes more bloody, heparin drip may need to be discontinued. We may need to get urology involved as well.
--- NOTE | 2023-08-03 15:34 | Cardiology Consultation ---
Date of Consultation August 03, 2023 Assessment & Plan (1) Unspecified atrial fibrillation: (2) Elevated troponin: Plan 1. Atrial fibrillation: I cannot tell how long he has been in atrial fibrillation but it must be relatively recent based on his heart rate of 60 in mid May of this year, I would be surprised if that was atrial fibrillation. I think rate control would be appropriate at this point, in the future if he stays in atrial fibrillation we can consider cardioversion. Unless I am missing it I do not see anything on his medication list for rate control. 2. Anticoagulation: He is on heparin, this is appropriate now although he does have some blood in his catheter. If this becomes a problem we may have to discontinue it but from the standpoint of his atrial fibrillation he should be on an anticoagulant. We can transition him to an oral agent (I would recommend Eliquis at 5 mg twice a day) when possible. 3. Elevated troponin: His troponin did increase following admission, I suspect that is demand ischemia from his illness but I do want to repeat another one since we do not have 1 showing a drop, the last one was this morning and it was 118. I will order another 1 for this afternoon and in the morning. History of Present Illness Reason for Consultation: Atrial fibrillation Attending Physician: Anna Pinto MD History of Present Illness This is a 78-year-old male with a history of diabetes mellitus, hypertension, hyperlipidemia and chronic venous stasis. He has had an echocardiogram on August 02, 2022 where he had normal left ventricular systolic function with mild concentric left ventricular hypertrophy and mild valvular aortic stenosis with mild mitral regurgitation. His right atrium was moderately to severely dilated with a mildly dilated inferior vena cava. He presented to the emergency room with chills, weakness and a fever. He was felt likely to have a viral illness several weeks ago although I do not believe it was specifically identified, now he presents the emergency room on August 03, 2023 with possible sepsis. He was also noted to in atrial fibrillation, his initial electrocardiogram just before midnight showed atrial fibrillation at 101 bpm and a subsequent electrocardiogram at 4 AM on August 03, 2023 shows atrial fibrillation at 92 bpm. He is on metoprolol tartrate 50 mg twice a day at home which may explain his reasonable heart rate control. He did have some mild hypotension documented on his vital signs. Evaluation so far has included a CBC with leukocytosis, cardiac enzymes which are elevated (on presentation 31.2, 2 and half hours later 99.8, 2-1/2 hours after that 118). An echocardiogram today demonstrates mild left ventricular dilatation with mild concentric left ventricular hypertrophy and ejection fraction of 50 to 55%. He does not have significant aortic stenosis and he has only mild mitral regurgitation. Left atrium is mildly dilated. It sounds as though he is not aware of the atrial fibrillation, until he got sick recently he was feeling well so it is hard to tell how long he has been in it. As of May 16, 2023 his heart rate was about 60, so it has probably been since then, possibly quite recently. He does not have palpitations or change in symptoms to narrow it down more closely. He has not noticed orthopnea, PND or peripheral edema. Allergies Allergy/AdvReac Type Severity Reaction Status Date / Time mold Allergy Intermediate respiratory Verified 08/03/23 01:03 problems atorvastatin AdvReac Intermediate Muscle Verified 08/03/23 01:03 soreness rosuvastatin AdvReac Intermediate Muscle Verified 08/03/23 01:03 soreness simvastatin AdvReac Intermediate Muscle Verified 08/03/23 01:03 soreness Home Medications Medication Instructions Recorded Confirmed Type cinnamon bark 500 mg capsule 500 mg PO BID 01/15/19 08/03/23 History (Cinnamon) aspirin 81 mg tablet,delayed 81 mg PO HS 02/26/19 08/03/23 History release (Jie Low Dose Aspirin) mecobalamin (vitamin B12) 1,000 1,000 mcg sublingual BID 02/26/19 08/03/23 History mcg disintegrating tablet,sublingual OneTouch Delica Lancets 33 gauge #400 ea 01/11/20 05/16/23 Rx (lancets) blood sugar diagnostic (OneTouch #50 ea 11/13/21 05/16/23 Rx Verio test strips) albuterol sulfate 90 mcg/actuation 1 inh inhalation QID PRN shortness 03/13/22 08/03/23 Rx aerosol inhaler of breath or wheezing #6.7 grams ascorbic acid (vitamin C) 500 mg 500 mg PO QAM 03/13/22 08/03/23 History tablet (Vitamin C) cholecalciferol (vitamin D3) 50 50 mcg PO DAILY 03/13/22 08/03/23 History mcg (2,000 unit) capsule (Vitamin D3) ferrous sulfate 325 mg (65 mg 325 mg PO QAM 03/13/22 08/03/23 History iron) tablet omega-3 fatty acids 1,000 mg 1,000 mg PO BID 03/13/22 08/03/23 History capsule fluticasone 500 mcg-salmeterol 50 1 inh inhalation BID 06/03/22 08/03/23 History mcg/dose blistr powdr for inhalation (Wixela Inhub) lisinopril 20 mg tablet 40 mg (2 x 20 mg) PO QAM 90 days 09/06/22 08/03/23 Rx #180 tabs metoprolol tartrate 50 mg tablet 50 mg PO BID hypertension #180 09/06/22 08/03/23 Rx tabs tramadol 50 mg tablet 50 mg PO BID PRN Pain 10/27/22 08/03/23 History furosemide 40 mg tablet 40 mg PO QAM #90 tabs 12/30/22 08/03/23 Rx omeprazole 40 mg capsule,delayed 40 mg PO DAILY #30 caps 01/04/23 08/03/23 Rx release allopurinol 300 mg tablet 300 mg PO BID #180 tabs 02/23/23 08/03/23 History tamsulosin 0.4 mg capsule 0.4 mg PO BID #180 caps 03/22/23 08/03/23 Rx furosemide 20 mg tablet 20 mg PO 3XWK 08/03/23 08/03/23 History magnesium oxide 420 mg tablet 420 mg PO BID 08/03/23 08/03/23 History metformin 1,000 mg tablet 1,000 mg PO BID 08/03/23 08/03/23 History potassium chloride 10 mEq 10 meq PO DAILY 08/03/23 08/03/23 History capsule,extended release pravastatin 20 mg tablet 20 mg PO DAILY 08/03/23 08/03/23 History semaglutide 1 mg/dose (4 mg/3 mL) 1 mg subcut WK 08/03/23 08/03/23 History subcutaneous pen injector (Ozempic) Patient History Medical History SIRS (systemic inflammatory response syndrome) Community acquired pneumonia History of colon polyps FOUND ON MOST RECENT COLONOSCOPY JUN 2022 Aortic stenosis MILD PER 11/29/19 ECHO. 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 Type 2 diabetes mellitus Hypertension Hyperlipidemia Sleep apnea CPAP Surgical History History of right cataract surgery History of biopsy 12/18/2019 right forearm mass H/O vascular surgery RT LEG History of carpal tunnel release of both wrists History of prostate biopsy benign History of colonoscopy with polypectomy JUN 2022 History of esophagogastroduodenoscopy (EGD) JUN 2022 History of Mohs surgery for squamous cell carcinoma of skin History of tooth extraction all upper teeth History of wisdom tooth extraction History of tonsillectomy S/P cholecystectomy S/P cardiac cath no stents Family History Father Myocardial infarction Mother Family history of diabetes mellitus Brother Family history of diabetes mellitus Other No family history of adverse response to anesthesia Denies family history of Ovarian cancer Prostate cancer Coronary heart disease Breast cancer Colorectal cancer Social History Smoking Status: Former smoker Tobacco Type: Cigarettes Age Started Using Tobacco: 11; Age Quit Using Tobacco: 42; packs per day: 1; Cigarettes Per Day: quit 30+yrs ago; Second Hand Exposure: No; Do You Dip or Chew Tobacco: No; Hx Alcohol Use: No Hx Substance Use: No Preferred Language: Pashto Communication Ability: Effective Visual Impairment: No Limitations Hearing Ability: Normal Access Spec Required: No Beliefs That Will Affect Care: None marital status: Current Living Situation: Spouse current occupational status: retired 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 He is laying supine in bed. HEENT: Unremarkable Neck: No jugular venous distention, carotid pulses are irregular but otherwise normal and equal bilaterally without bruits. Pulmonary: Clear to auscultation bilaterally. Cardiac: Irregular rhythm with a grade 3/6 holosystolic murmur at the apex, no gallop or rub. Abdomen: Soft, nontender with normal bowel sounds. Extremities: No edema. Neurologic: No focal findings. Gait was not tested. Skin: No rash, he does have ecchymosis on his arms. Results & Data Vital Signs (Past 12 Hours) Vital Signs Temp Pulse Pulse Resp BP BP BP 08/03/23 11:17 36.7 C 85 18 105/62 08/03/23 07:06 36.9 C 88 18 99/58 L 08/03/23 06:12 36.5 C 08/03/23 04:00 85 08/03/23 04:00 08/03/23 04:00 37.5 C 71 18 94/59 L 08/03/23 03:00 96 H 20 124/69 08/03/23 03:00 95 H 21 116/62 08/03/23 01:30 98 H 16 122/69 08/03/23 01:15 109 H 22 133/63 08/03/23 01:00 103 H 22 100/59 L 08/03/23 00:57 95 H 21 100/59 L 08/03/23 00:52 106 H 08/03/23 00:44 08/03/23 00:30 38.3 C H 104 H 21 132/76 08/02/23 23:49 38.9 C H 96 H 20 149/84 H Pulse Ox O2 Del Method 08/03/23 11:17 93 Room Air 08/03/23 07:06 91 Room Air 08/03/23 06:12 08/03/23 04:00 08/03/23 04:00 Room Air 08/03/23 04:00 94 Room Air 08/03/23 03:00 93 Room Air 08/03/23 03:00 93 Room Air 08/03/23 01:30 94 Room Air 08/03/23 01:15 94 Room Air 08/03/23 01:00 94 Room Air 08/03/23 00:57 94 Room Air 08/03/23 00:52 08/03/23 00:44 94 Room Air 08/03/23 00:30 94 Room Air 08/02/23 23:49 92 Room Air Laboratory Results Cardiac Enzymes 08/03/23 08/03/23 08/03/23 Range/Units 00:42 03:05 05:23 AST 22 (13-39) U/L Troponin I High Sens 31.2 H 99.8 H* D 118.5 H* (0-20) pg/ml Coagulation 08/03/23 Range/Units 08:22 PT 11.9 (9.0-12.0) Seconds APTT 37 H (21-31) Seconds CBC 08/03/23 08/03/23 Range/Units 00:42 08:22 WBC 15.73 H 17.89 H (4.8-10.8) K/ul RBC 4.03 L 3.57 L (4.70-6.10) M/uL Hgb 12.7 L 11.3 L (14.0-18.0) g/dl Hct 37.3 L 32.1 L (42.0-52.0) % Plt Count 187 160 (130-400) K/uL Neut # (Auto) 13.94 H 16.14 H (1.40-6.50) K/uL Lymph # (Auto) 0.91 L 1.08 L (1.20-3.40) K/uL [place] # (Auto) 0.63 H 0.51 (0.11-0.59) K/uL Eos # (Auto) 0.11 0.01 (0.00-0.50) K/uL Baso # (Auto) 0.04 0.03 (0.00-0.20) K/uL Comprehensive Metabolic Panel 08/03/23 Range/Units 00:42 Sodium 129 L (136-145) mmol/L Potassium 4.9 (3.5-5.1) mmol/L Chloride 92 L (98-107) mmol/L Carbon Dioxide 28 (21-32) mmol/L BUN 31 H (6-23) mg/dl Creatinine 1.34 (0.6-1.4) mg/dl Glucose 224 H (70-99(Fasting)) mg/dl Calcium 10.4 H (8.6-10.3) mg/dl Direct Bilirubin 0.2 (0-0.2) mg/dl AST 22 (13-39) U/L ALT 16 (7-52) U/L Alkaline Phosphatase 194 H (34-104) U/L Total Protein 7.5 (6.0-8.3) gm/dl Albumin 4.3 (3.4-5.0) gm/dl Intake and Output 08/03/23 08/03/23 08/03/23 06:59 14:59 22:59 Intake Total 854.95 / 854.95 680 / 680 Output Total 1375 / 1375 Balance 824.95 / 824.95 -695 / -695 Intake: IV 854.95 / 854.95 200 / 200 Azithromycin 500 mg In Dextrose 255 / 255 5% 250 ml @ 127.5 mls/hr IV NOW STA Rx#:[id number] Magnesium Sulfate / D5w 1 gm In 200 / 200 100 ml @ 50 mls/hr IV Q2H KANWAL Rx#:[id number] Sodium Chloride 0.9% 1,000 ml @ 49.95 / 49.95 999 mls/hr IV .Q1H1M ONE Rx#: [id number] Sodium Chloride 0.9% 500 ml @ 500 / 500 999 mls/hr IV .Q31M ONE Rx#: [id number] [email or web address] SODIUM 2,000 mg In 50 / 50 50 ml @ 100 mls/hr IV NOW STA Rx#:[id number] Oral 480 / 480 Output: Urine 30 / 30 Urine Amount (Catheter) 1375 / 1375 Mckeon/Indwelling 1375 / 1375 Other: # Unmeasured Voids 7 Weight 114.1 kg Weight Measurement Method Standing Scale Diagnostic Findings Telemetry: Atrial fibrillation, initially the heart rate was around 100 and that has dropped to around 70 on average following admission. PG Care Time/CCT Total # of Minutes Spent Total Time Spent with Patient: Total time spent is greater than 50% in coordination of care (as documented) at patient's floor/unit and/or counseling patient: Coding Level of Care Code 09079 INT INP/OBS CARE 3/75MIN Diagnoses Unspecified atrial fibrillation I48.91 Elevated troponin R79.89
--- NOTE | 2023-08-03 18:48 | XCELERA ---
[id number] \\[id number]
[2023-08-03] MEDS: ASPIRIN 81 MG ECTAB PO SCH (21:33)
--- NOTE | 2023-08-03 23:11 | Urology Consultation ---
Date of Consultation August 03, 2023 Assessment & Plan (1) Hematuria: Patient has been admitted on the hospital service and is currently being treated for underlying sepsis as well as new onset atrial fibrillation. From a urologic perspective we recommend the following: I suspect the patient's gross hematuria is likely due to some trauma from Mckeon insertion in the setting of BPH, along with a urinary tract infection, as well as underlying systemic anticoagulation with a heparin drip Would recommend maintaining Mckeon catheter to gravity drainage. If this Mckeon catheter becomes clogged nursing staff may flush and irrigate as needed The medical service has placed a heparin drip on hold and would hold anticoagulants with his hematuria if clinically feasible. If the patient would require anticoagulants for cardiovascular reasons his hematuria can be managed expectantly Patient is being treated for underlying sepsis with ceftriaxone and azithromycin. Appropriate cultures have been sent and antibiotics be tailored based on these results Once patient's hematuria has cleared consideration be given to attempting a voiding trial. Would recommend following serial hemoglobin and hematocrits in the setting of hematuria Additional recommendations be forthcoming based on his clinical course as it unfolds History of Present Illness Reason for Consultation: Hematuria Attending Physician: Anna Pinto MD History of Present Illness This is a 78-year-old male who was admitted to [facility] earlier today. The patient has been admitted with sepsis with a suspected pulmonary source as well as new onset atrial fibrillation. Since admission the patient has been placed on a heparin drip secondary to his atrial fibrillation. He has also been started on antibiotics in the form of Rocephin and azithromycin. The patient and his reported that he does have some difficulty emptying his bladder from time to time and a Mckeon catheter was therefore placed. Since this has been placed the patient is noted to have gross hematuria in his Mckeon bag. The patient currently denies any abdominal pain and he also denies any back or flank pain. Prior to Mckeon catheter being inserted he reported no history of hematuria or dysuria. At the present time he denies any suprapubic pressure. This patient has followed with [facility] urology. His most recent visit was on 03/22/2023. The patient has a reported history of BPH and he takes Flomax. Since admission to the hospital the patient has had labs and imaging which independent reviewed. The patient did have a chest x-ray that showed no evidence of pneumonia. Labs included CBC were white blood cell count is elevated at 17.8. His hemoglobin and hematocrit are 11.3 and 32.1. Platelet count is normal. Coagulation studies revealed an INR of 1.1. Chemistry profile showed sodium was 129 with a normal potassium. His BUN is 31 and his creatinine is normal. Patient's lactic acid level is not elevated at 2.0. Patient did have an elevated alkaline phosphatase at 194 but the remaining LFTs are normal. Urinalysis showed turbid urine with 3+ leukocyte Estrace and pyuria with greater than 30 white blood cells per high-power field. There is no yeast on this study but there was 2+ bacteria. The specimen was negative for nitrites. At the time my interview the patient was resting comfortably bed he was no distress. Allergies Allergy/AdvReac Type Severity Reaction Status Date / Time mold Allergy Intermediate respiratory Verified 08/03/23 01:03 problems atorvastatin AdvReac Intermediate Muscle Verified 08/03/23 01:03 soreness rosuvastatin AdvReac Intermediate Muscle Verified 08/03/23 01:03 soreness simvastatin AdvReac Intermediate Muscle Verified 08/03/23 01:03 soreness Home Medications Medication Instructions Recorded Confirmed Type cinnamon bark 500 mg capsule 500 mg PO BID 01/15/19 08/03/23 History (Cinnamon) aspirin 81 mg tablet,delayed 81 mg PO HS 02/26/19 08/03/23 History release (Jie Low Dose Aspirin) mecobalamin (vitamin B12) 1,000 1,000 mcg sublingual BID 02/26/19 08/03/23 History mcg disintegrating tablet,sublingual OneTouch Delica Lancets 33 gauge #400 ea 01/11/20 05/16/23 Rx (lancets) blood sugar diagnostic (OneTouch #50 ea 11/13/21 05/16/23 Rx Verio test strips) albuterol sulfate 90 mcg/actuation 1 inh inhalation QID PRN shortness 03/13/22 08/03/23 Rx aerosol inhaler of breath or wheezing #6.7 grams ascorbic acid (vitamin C) 500 mg 500 mg PO QAM 03/13/22 08/03/23 History tablet (Vitamin C) cholecalciferol (vitamin D3) 50 50 mcg PO DAILY 03/13/22 08/03/23 History mcg (2,000 unit) capsule (Vitamin D3) ferrous sulfate 325 mg (65 mg 325 mg PO QAM 03/13/22 08/03/23 History iron) tablet omega-3 fatty acids 1,000 mg 1,000 mg PO BID 03/13/22 08/03/23 History capsule fluticasone 500 mcg-salmeterol 50 1 inh inhalation BID 06/03/22 08/03/23 History mcg/dose blistr powdr for inhalation (Wixela Inhub) lisinopril 20 mg tablet 40 mg (2 x 20 mg) PO QAM 90 days 09/06/22 08/03/23 Rx #180 tabs metoprolol tartrate 50 mg tablet 50 mg PO BID hypertension #180 09/06/22 08/03/23 Rx tabs tramadol 50 mg tablet 50 mg PO BID PRN Pain 10/27/22 08/03/23 History furosemide 40 mg tablet 40 mg PO QAM #90 tabs 12/30/22 08/03/23 Rx omeprazole 40 mg capsule,delayed 40 mg PO DAILY #30 caps 01/04/23 08/03/23 Rx release allopurinol 300 mg tablet 300 mg PO BID #180 tabs 02/23/23 08/03/23 History tamsulosin 0.4 mg capsule 0.4 mg PO BID #180 caps 03/22/23 08/03/23 Rx furosemide 20 mg tablet 20 mg PO 3XWK 08/03/23 08/03/23 History magnesium oxide 420 mg tablet 420 mg PO BID 08/03/23 08/03/23 History metformin 1,000 mg tablet 1,000 mg PO BID 08/03/23 08/03/23 History potassium chloride 10 mEq 10 meq PO DAILY 08/03/23 08/03/23 History capsule,extended release pravastatin 20 mg tablet 20 mg PO DAILY 08/03/23 08/03/23 History semaglutide 1 mg/dose (4 mg/3 mL) 1 mg subcut WK 08/03/23 08/03/23 History subcutaneous pen injector (Ozempic) azithromycin 250 mg tablet 500 mg (2 x 250 mg) PO DAILYBB 2 08/06/23 Rx days #4 tabs cephalexin 500 mg capsule 500 mg PO BID 4 days #8 caps 08/06/23 Rx Patient History Medical History SIRS (systemic inflammatory response syndrome) Community acquired pneumonia History of colon polyps FOUND ON MOST RECENT COLONOSCOPY JUN 2022 Aortic stenosis MILD PER 11/29/19 ECHO. 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 Type 2 diabetes mellitus Hypertension Hyperlipidemia Sleep apnea CPAP Surgical History History of right cataract surgery History of biopsy 12/18/2019 right forearm mass H/O vascular surgery RT LEG History of carpal tunnel release of both wrists History of prostate biopsy benign History of colonoscopy with polypectomy JUN 2022 History of esophagogastroduodenoscopy (EGD) JUN 2022 History of Mohs surgery for squamous cell carcinoma of skin History of tooth extraction all upper teeth History of wisdom tooth extraction History of tonsillectomy S/P cholecystectomy S/P cardiac cath no stents Family History Father Myocardial infarction Mother Family history of diabetes mellitus Brother Family history of diabetes mellitus Other No family history of adverse response to anesthesia Denies family history of Ovarian cancer Prostate cancer Coronary heart disease Breast cancer Colorectal cancer Social History Smoking Status: Former smoker Tobacco Type: Cigarettes Age Started Using Tobacco: 11; Age Quit Using Tobacco: 42; packs per day: 1; Cigarettes Per Day: quit 30+yrs ago; Second Hand Exposure: No; Do You Dip or Chew Tobacco: No; Hx Alcohol Use: No Hx Substance Use: No Preferred Language: Bahamian Communication Ability: Effective Visual Impairment: No Limitations Hearing Ability: Normal Html Web Developer Required: No Beliefs That Will Affect Care: None marital status: Current Living Situation: Spouse current occupational status: retired 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[facility] Feels Safe at Home: Yes Childhood Exposure to Second-Hand Smoke: No Diet: regular caffeine: Yes during the past year weight has: remained stable Dental Care, Regularly: Yes Physical Activity Frequency: Does not Exercise Seatbelt Use: always Sunscreen Use: Yes Assistive Devices: Cane and Glasses Review of Systems Constitutional: + fever Ear, Nose, Mouth, Throat: no hearing loss Respiratory: no cough Cardiovascular: no chest pain Gastrointestinal: no abdominal pain Genitourinary: + as per Subjective / HPI Musculoskeletal: no back pain Integumentary: no rash Neurologic: no localized weakness Physical Exam Constitutional: WD/WN, vitals as above Eyes: no conjunctival abnormality ENMT: Ears: no hearing impairment and no external ear abnormality Mouth: no oropharynx abnormality Neck: trachea midline Respiratory: normal respiratory effort; no respiratory distress and no labored breathing Cardiovascular: Rate/Rhythm: + irregularly irregular Gastrointestinal (Abdomen): Abdomen is soft and nondistended. There is no pain with palpation and no suprapubic pressure with palpation Musculoskeletal: No calf tenderness Skin: no rashes Neurologic: moves all extremities Psychiatric: A+Ox3, euthymic affect Genitourinary: No CVA tenderness bilaterally. Patient did have a Mckeon catheter in place that was draining grossly bloody urine. There are no visible clots in the collection bag. The catheter did appear patent and was draining appropriately Results & Data Vital Signs (Past 12 Hours) Vital Signs Temp Pulse Pulse Resp BP BP Pulse Ox 08/03/23 22:01 88 08/03/23 21:30 08/03/23 19:00 36.9 C 85 18 122/60 92 08/03/23 14:52 36.8 C 81 18 123/69 94 08/03/23 11:17 36.7 C 85 18 105/62 93 O2 Del Method 08/03/23 22:01 08/03/23 21:30 Room Air 08/03/23 19:00 Room Air 08/03/23 14:52 Room Air 08/03/23 11:17 Room Air PG Care Time/CCT Total # of Minutes Spent Total Time Spent with Patient: Total time spent is greater than 50% in coordination of care (as documented) at patient's floor/unit and/or counseling patient: Critical Care Time Discussed patient with ENEDINA. Agree with plan. Saw patient personally with ENEDINA. Coding Level of Care Code 18697 INT INP/OBS CARE 375MIN Diagnoses Hematuria R31.9
[2023-08-03] MEDS: MELATONIN 3 MG TAB PO PRN (23:48)
[2023-08-04] MEDS: LORazepam 0.5 MG in SYRINGE 0.25 ML IV ONE (02:42)
[2023-08-04 05:17] LABS: Troponin I High Sensitivity 156.4 pg/ml (0-20)
[2023-08-04] MEDS: AZITHROMYCIN 500 MG in DEXTROSE 5% 250 ML IV SCH (05:54)
--- NOTE | 2023-08-04 05:57 | Billing Data ---
Date of Service August 04, 2023 Coding Level of Care Code 76695 INT INP/OBS CARE
[2023-08-04 06:10] LABS: Albumin Globulin Ratio 1.3 (0.9-2); Albumin Level 3.5 gm/dl (3.4-5.0); BUN Creatinine Ratio 24.2 (10-20); Calcium 9.5 mg/dl (8.6-10.3); Creatinine Clr Calc Pharmacy 59.2 ml/min; Est GFR (African American) 61.7 ml/min; Est GFR (Non-African American) 53.3 ml/min; Globulin 2.6 gm/dl (2.5-4.0); Potassium 3.9 mmol/L (3.5-5.1); Total Protein 6.1 gm/dl (6.0-8.3)
[2023-08-04 06:26] LABS: Hematocrit (blood only) 30.6 % (42.0-52.0); Hemoglobin 10.5 g/dl (14.0-18.0); Mean Corpuscular Hemoglobin 31.3 pg (25.0-34.0); Mean Corpuscular Hgb Conc 34.3 g/dL (32.0-36.0); Mean Corpuscular Volume 91.1 fL (80.0-100.0); Mean Platelet Volume 10.4 fL (9.4-12.4); Platelet Count 155 K/uL (130-400); RDW Coefficient of Variation 15.9 % (11.5-14.5); RDW Standard Deviation 52.2 fL (36.4-46.3); Red Blood Count 3.36 M/uL (4.70-6.10); White Blood Count 17.71 K/ul (4.8-10.8)
[2023-08-04] MEDS: cefTRIAXone SODIUM 2,000 MG in DEXTROSE 5 % MINI-B 50 ML IV SCH (08:45)
--- NOTE | 2023-08-04 14:25 | Cardiology Progress Note ---
Date of Service August 04, 2023 Assessment & Plan (1) Unspecified atrial fibrillation: (2) Elevated troponin: Plan 1. Atrial fibrillation: I cannot tell how long he has been in atrial fibrillation but it must be relatively recent based on his heart rate of 60 in mid May of this year, I would be surprised if that was atrial fibrillation. I think rate control would be appropriate at this point, in the future if he stays in atrial fibrillation we can consider cardioversion. I am going to start low-dose metoprolol today. 2. Anticoagulation: He was on heparin, this was appropriate however he developed hematuria, possibly Mckeon trauma. That seems to have cleared. We probably should try to get him back on anticoagulation if possible, I have not done that as yet. We can transition him to an oral agent (I would recommend Eliquis at 5 mg twice a day) when possible. 3. Elevated troponin: His troponin did increase following admission, it seems to have peaked on the last 2 readings. I suspect that is demand ischemia from his illness and at the moment would not pursue further coronary evaluation. Admission and Anticipated Discharge Date Admission Date: August 03, 2023 Subjective He is feeling relatively well today, he does not have any cardiovascular complaints such as palpitations or chest discomfort. Physical Exam Physical Exam: Constitutional: Alert, cooperative and in no distress. He is laying supine in bed. HEENT: Unremarkable Neck: No jugular venous distention, carotid pulses are irregular but otherwise normal and equal bilaterally without bruits. Pulmonary: Clear to auscultation bilaterally. Cardiac: Irregular rhythm with a grade 3/6 holosystolic murmur at the apex, no gallop or rub. Abdomen: Soft, nontender with normal bowel sounds. Extremities: No edema. Neurologic: No focal findings. Gait was not tested. Skin: No rash, he does have ecchymosis on his arms. Results & Data Vital Signs (Past 12 Hours) Vital Signs Temp Pulse Pulse Resp BP BP Pulse Ox 08/04/23 12:00 37.3 C 95 H 18 119/63 96 08/04/23 07:49 36.8 C 106 H 18 106/64 93 08/04/23 04:00 36.8 C 84 18 129/72 93 O2 Del Method 08/04/23 12:00 Room Air 08/04/23 07:49 Room Air 08/04/23 04:00 Room Air Laboratory Results Cardiac Enzymes 08/03/23 08/04/23 Range/Units 16:52 03:36 AST 16 (13-39) U/L Troponin I High Sens 154.8 H* D 156.4 H* (0-20) pg/ml CBC 08/04/23 Range/Units 03:39 WBC 17.71 H (4.8-10.8) K/ul RBC 3.36 L (4.70-6.10) M/uL Hgb 10.5 L (14.0-18.0) g/dl Hct 30.6 L (42.0-52.0) % Plt Count 155 (130-400) K/uL Comprehensive Metabolic Panel 08/04/23 Range/Units 03:36 Sodium 130 L (136-145) mmol/L Potassium 3.9 D (3.5-5.1) mmol/L Chloride 96 L (98-107) mmol/L Carbon Dioxide 25 (21-32) mmol/L BUN 31 H (6-23) mg/dl Creatinine 1.28 (0.6-1.4) mg/dl Glucose 148 H (70-99(Fasting)) mg/dl Calcium 9.5 (8.6-10.3) mg/dl AST 16 (13-39) U/L ALT 13 (7-52) U/L Alkaline Phosphatase 163 H (34-104) U/L Total Protein 6.1 (6.0-8.3) gm/dl Albumin 3.5 (3.4-5.0) gm/dl Intake and Output 08/03/23 08/04/23 08/04/23 22:59 06:59 14:59 Intake Total 499.867 / 1259.867 80 / 1259.867 305 / 305 Output Total 1301 / 3526 850 / 3526 Balance -801.133 / -2266.133 -770 / -2266.133 305 / 305 Intake: IV 349.867 / 549.867 305 / 305 Azithromycin 500 mg In Dextrose 255 / 255 5% 250 ml @ 125 mls/hr IV Q24H [facility] Rx#:[id number] Heparin Sodium/Dextrose 25,000 349.867 / 349.867 units In 500 ml @ 1,600 UNITS/ HR 32 mls/hr IV .[id number] [facility] Rx #:[id number] [id number] SODIUM 2,000 mg In 50 / 50 Dextrose 5 % Mini-B 50 ml @ 100 mls/hr IV Q24H [facility] Rx#: [id number] Oral 150 / 710 80 / 710 Output: Urine Amount (Catheter) 1300 / 3525 850 / 3525 Mckeon/Indwelling 1300 / 3525 850 / 3525 # Bowel Movements Other: Weight 113 kg Weight Measurement Method Built in [facility] Diagnostic Findings Telemetry: Atrial fibrillation, rate remains somewhat elevated, over 100 on average. PG Care Time/CCT Total # of Minutes Spent Total Time Spent with Patient: Total time spent is greater than 50% in coordination of care (as documented) at patient's floor/unit and/or counseling patient: Coding Level of Care Code 48317 SUB INP/OBS CARE 235MIN Diagnoses Chronic atrial fibrillation I48.20 Atrial fibrillation type: unspecified chronic Elevated troponin R79.89 (1) Unspecified atrial fibrillation Atrial fibrillation type: unspecified chronic Qualified Code(s): I48.20 - Chronic atrial fibrillation, unspecified
--- NOTE | 2023-08-04 14:29 | Urology Progress Note ---
Date of Service August 04, 2023 Assessment & Plan (1) Hematuria: Plan 78yo M admitted with pneumonia and new onset Afib. Urology was consulted for hematuria. - Hematuria likely due to some trauma from Mckeon insertion in the setting of BPH, along with a urinary tract infection, as well as underlying systemic anticoagulation with a heparin drip - Pt afebrile and hemodynamically stable at present. - Labs reviewed - WBC 17.71, Hemoglobin 10.5, Creatinine 1.28. Continue to trend. - Urine culture prelim gram negative bacilli; Blood cultures prelim no growth x 24 hours. - On ceftriaxone and azithromycin. - Mkceon intact and draining pink urine. Continue to monitor. Ok to hand irrigate as needed for clots, retention, suprapubic pain. - Anticoagulation is on hold. Will defer to primary team/cardiology. If patient needs to be on anticoagulation, it is fine to restart and monitor. Urology can manage hematuria as needed. - Continue supportive care - Continue antibiotics and tailor as culture data becomes available. - Urology will follow. Admission and Anticipated Discharge Date Admission Date: August 03, 2023 Subjective Pt examined at bedside today. Awake and sitting up in bed on arrival. at bedside. No acute distress. Mckeon draining pink urine. Review of Systems Constitutional: as per Subjective / HPI Genitourinary: + as per Subjective / HPI Physical Exam Constitutional: no acute distress Respiratory: no respiratory distress and no labored breathing Skin: No visible rashes or lesions to exposed skin areas Neurologic: awake Psychiatric: A+Ox3, euthymic affect Genitourinary: Mckeon intact Results & Data Vital Signs (Past 12 Hours) Vital Signs Temp Pulse Pulse Resp BP BP Pulse Ox 08/04/23 12:00 37.3 C 95 H 18 119/63 96 08/04/23 07:49 36.8 C 106 H 18 106/64 93 08/04/23 04:00 36.8 C 84 18 129/72 93 O2 Del Method 08/04/23 12:00 Room Air 08/04/23 07:49 Room Air 08/04/23 04:00 Room Air PG Care Time/CCT Total # of Minutes Spent Total Time Spent with Patient: Total time spent is greater than 50% in coordination of care (as documented) at patient's floor/unit and/or counseling patient: Coding Level of Care Code 07968 SUB INP/OBS CARE 2/35MIN Diagnoses Hematuria R31.9
--- NOTE | 2023-08-04 16:26 | Hospitalist Progress Note ---
"Date of Service August 04, 2023 Assessment & Plan (1) Community acquired pneumonia: (2) Sepsis: (3) Hypomagnesemia: (4) Elevated troponin: (5) Chronic venous insufficiency: (6) Anemia: (7) Asthma: (8) BPH with obstruction/lower urinary tract symptoms: (9) GERD (gastroesophageal reflux disease): (10) Gout, arthritis: (11) Type 2 diabetes mellitus: (12) Hypertension: (13) Hyperlipidemia: (14) Sleep apnea: Plan Summary: Mango is a 78M w/ PMH of MR, GIST of Stomach, , Castillo esophagus, chronic venous insufficiency, anemia, asthma, BPH w/ LUTS, diabetic peripheral neuropathy, GERD, PAD, T2DM, HTN, HLD, JOSEFINA, and chronic hyponatremia who pres ents for evaluation of a cough and chills. Sepsis likely 2/2 Pulmonary Source * Patient with likely Viral URI 2 weeks ago, now with worsening cough, congestion, fevers, chills, weakness, and confusion * CXR concerning for bilateral pulmonary infiltrates, potential worse in RLL * Respiratory BioFire Negative, Procal negative, Lactate negative * Sepsis: Patient with tachycardia, leukocytosis, and fever w/ suspected pulmonary source * Blood Cultures Pending and negative so far * Currently on IV ceftriaxone and azithromycin * Clinically improving with no more fever spikes * Still has leukocytosis of 17,000. Will continue to monitor. * Resume Lasix from tomorrow now that fluid resuscitated Elevated Troponin * Rising Trop likely 2/2 demand from active infection vs new A Fib * Cardiology did not recommend any further ischemic workup as this is most likely demand ischemia * No chest pain or dyspnea * Echo 08/02/22 w/ normal LV function, mild LVH, L Atrial enlargement, mild and mild MR, repeat echo reviewed Atrial fibrillation * Maintain K of 4/Mg of 2 * [id number] score was high * Patient was started on heparin drip * However started having hematuria * Heparin drip was discontinued and urology was consulted * No hematuria today * Will continue to hold anticoagulation for the time being * Heart rate controlled fairly * Low-dose metoprolol started by cardiology BPH w/ LUTS | Difficulty Emptying Bladder * Mckeon catheter inserted followed by hematuria * Heparin drip discontinued due to hematuria * Urine clearing at this time * Will continue to hold anticoagulation for the time being * Urine culture growing gram-negative matheus * Follow urine culture results * Continue ceftriaxone and azithromycin to cover pneumonia Hyponatremia, Acute on Chronic * Baseline 132, 129 on admission * Potential association w/ volume status +/- diuretic use * S/p 500 cc NSS * Resume Lasix p.o. from tomorrow now that fluid resuscitated Chronic Conditions: * Asthma: Albuterol ordered PRN * Chronic Anemia: Hgb stable at 12.7, Iron supplementation at home * Gout: Continue allopurinol * HTN: Hold antihypertensives (Lisinopril) for hypotension, restart Metoprolol when stable d/t new AFib * DM2: Metformin and Ozempic held, SSI ordered w/ checks ACHS * Chronic Hypomagnesemia: Continue PO supplement * GERD: Continue PPI * HLD: Continue statin * Chronic Pain: continue Tramadol PRN Code Status:Full DVT PPx:Held due to hematuria Admission and Anticipated Discharge Date Admission Date: August 03, 2023 Subjective Patient says he feels much better overall. No more fever spikes. Yesterday on 08/02 he had hematuria for which the heparin drip had to be discontinued and urology was consulted. Review of Systems Review of Systems: All systems reviewed & are unremarkable except as noted in Subjective Physical Exam Physical Exam: General: Awake, conversant, obese Heart: S1, S2/regular rate and rhythm, no murmur rubs or gallops Lungs: Clear to auscultation bilaterally. Normal effort Abdomen: Soft/nontender/nondistended. No hepatosplenomegaly Extremities: No clubbing/cyanosis. No edema Behavior: Appropriate, cooperative Results & Data Results & Data Vital Signs (Past 12 Hours) Vital Signs Temp Pulse Resp BP Pulse Ox O2 Del Method 08/04/23 15:39 36.9 C 97 H 18 126/67 96 Room Air 08/04/23 12:00 37.3 C 95 H 18 119/63 96 Room Air 08/04/23 07:49 36.8 C 106 H 18 106/64 93 Room Air Laboratory Results Abnormal lab results 08/03/23 08/03/23 08/03/23 Range/Units 16:36 16:52 20:30 WBC (4.8-10.8) K/ul RBC (4.70-6.10) M/uL Hgb (14.0-18.0) g/dl Hct (42.0-52.0) % RDW Std Deviation (36.4-46.3) fL RDW Coeff of Valdo (11.5-14.5) % Sodium (136-145) mmol/L Chloride (98-107) mmol/L BUN (6-23) mg/dl BUN/Creatinine Ratio (10-20) Glucose (70-99(Fasting)) mg/dl POC Glucose 173 H 185 H (70-99) mg/dl Alkaline Phosphatase (34-104) U/L Troponin I High Sens 154.8 H* D (0-20) pg/ml 08/04/23 08/04/23 08/04/23 Range/Units 03:36 03:39 07:54 WBC 17.71 H (4.8-10.8) K/ul RBC 3.36 L (4.70-6.10) M/uL Hgb 10.5 L (14.0-18.0) g/dl Hct 30.6 L (42.0-52.0) % RDW Std Deviation 52.2 H (36.4-46.3) fL RDW Coeff of Valdo 15.9 H (11.5-14.5) % Sodium 130 L (136-145) mmol/L Chloride 96 L (98-107) mmol/L BUN 31 H (6-23) mg/dl BUN/Creatinine Ratio 24.2 H (10-20) Glucose 148 H (70-99(Fasting)) mg/dl POC Glucose 199 H (70-99) mg/dl Alkaline Phosphatase 163 H (34-104) U/L Troponin I High Sens 156.4 H* (0-20) pg/ml 08/04/23 Range/Units 12:06 WBC (4.8-10.8) K/ul RBC (4.70-6.10) M/uL Hgb (14.0-18.0) g/dl Hct (42.0-52.0) % RDW Std Deviation (36.4-46.3) fL RDW Coeff of Valdo (11.5-14.5) % Sodium (136-145) mmol/L Chloride (98-107) mmol/L BUN (6-23) mg/dl BUN/Creatinine Ratio (10-20) Glucose (70-99(Fasting)) mg/dl POC Glucose 291 H (70-99) mg/dl Alkaline Phosphatase (34-104) U/L Troponin I High Sens (0-20) pg/ml PG Care Time/CCT Total # of Minutes Spent Total Time Spent with Patient: Total time spent is greater than 50% in coordination of care (as documented) at patient's floor/unit and/or counseling patient: Coding Level of Care Code 53702 SUB INP/OBS CARE 235MIN Diagnoses Community acquired pneumonia J18.9 Sepsis A41.9 Sepsis acute organ dysfunction status: unspecified Sepsis type: sepsis due to unspecified organism Hypomagnesemia E83.42 Elevated troponin R79.89 Chronic venous insufficiency I87.2 Anemia D64.9 Asthma J45.909 BPH with obstruction/lower urinary tract symptoms N40.1; N13.8 GERD (gastroesophageal reflux disease) K21.9 Gout, arthritis M10.9 Type 2 diabetes mellitus E11.9 Hypertension I10 Hyperlipidemia E78.5 Sleep apnea G47.30 (2) Sepsis Sepsis acute organ dysfunction status: unspecified Sepsis type: sepsis due to unspecified organism Qualified Code(s): A41.9 - Sepsis, unspecified organism"
[2023-08-04] MEDS: METOPROLOL TARTRATE 25 MG TAB PO SCH (16:35)
[2023-08-04] MEDS: LOPERAMIDE HCL 2 MG CAP PO STA (20:59)
[2023-08-04] MEDS: ACETAMINOPHEN 325 MG TAB PO PRN (20:59)
[2023-08-05] MEDS: FUROSEMIDE 40 MG TAB PO SCH (08:30)
[2023-08-05 09:18] LABS: Hematocrit (blood only) 29.8 % (42.0-52.0); Hemoglobin 10.2 g/dl (14.0-18.0); Mean Corpuscular Hemoglobin 31.6 pg (25.0-34.0); Mean Corpuscular Hgb Conc 34.2 g/dL (32.0-36.0); Mean Corpuscular Volume 92.3 fL (80.0-100.0); Mean Platelet Volume 10.3 fL (9.4-12.4); Platelet Count 144 K/uL (130-400); RDW Coefficient of Variation 15.9 % (11.5-14.5); RDW Standard Deviation 53.3 fL (36.4-46.3); Red Blood Count 3.23 M/uL (4.70-6.10); White Blood Count 18.24 K/ul (4.8-10.8)
[2023-08-05 09:36] LABS: BUN Creatinine Ratio 26.7 (10-20); Calcium 9.6 mg/dl (8.6-10.3); Creatinine Clr Calc Pharmacy 64.4 ml/min; Est GFR (African American) 69.5 ml/min; Potassium 4.2 mmol/L (3.5-5.1)
--- NOTE | 2023-08-05 14:10 | Urology Progress Note ---
Date of Service August 05, 2023 Assessment & Plan (1) Hematuria: Plan 78yo M admitted with pneumonia and new onset Afib. Urology was consulted for hematuria. - Hematuria likely multifactorial including trauma from Mckeon insertion, UTI, and anticoagulation - Pt afebrile and hemodynamically stable at present. - Labs reviewed - WBC 18.24, Hemoglobin 10.2, Creatinine 1.16. Continue to trend. - Urine culture grew E. coli, blood cultures prelim no growth x 48 hours. - On ceftriaxone and azithromycin. - Mckeon intact and draining pink urine. No clots visible at time of exam. Continue to monitor. Ok to hand irrigate as needed for clots, retention, suprapubic pain. - Anticoagulation is on hold. Will defer to primary team/cardiology. If patient needs to be on anticoagulation, it is fine to restart and monitor. Urology can manage hematuria as needed. - Continue supportive care. - Continue antibiotics. - Will arrange outpatient follow-up with our service. - Urology will follow peripherally. Please call with any further questions or concerns. Admission and Anticipated Discharge Date Admission Date: August 03, 2023 Subjective Pt examined at bedside today. Awake and resting in bed on arrival. at bedside. No acute distress. Mckeon draining pink urine. He did require manual irrigation of the catheter overnight by nursing staff. He denies abdominal or suprapubic pain at present. Denies fever, chills, nausea, vomiting. Review of Systems Constitutional: as per Subjective / HPI Genitourinary: + as per Subjective / HPI Physical Exam Constitutional: no acute distress Respiratory: no respiratory distress and no labored breathing Neurologic: awake Psychiatric: Orientation: alert and cooperative Genitourinary: Mckeon intact and draining pink urine. No clots visible at time of exam. Results & Data Vital Signs (Past 12 Hours) Vital Signs Temp Pulse Resp BP BP Pulse Ox O2 Del Method 08/05/23 12:00 36.7 C 82 18 102/57 L 98 Room Air 08/05/23 08:43 Room Air 08/05/23 07:27 36.8 C 95 H 18 118/76 94 Room Air 08/05/23 04:54 37.0 C 87 20 120/64 96 Room Air PG Care Time/CCT Total # of Minutes Spent Total Time Spent with Patient: Total time spent is greater than 50% in coordination of care (as documented) at patient's floor/unit and/or counseling patient: Coding Level of Care Code 52424 SUB INP/OBS CARE 2MIN Diagnoses Hematuria R31.9
--- NOTE | 2023-08-05 14:13 | Ultrasound Report ---
BILATERAL LOWER EXTREMITY VENOUS DOPPLER CLINICAL HISTORY: Lower extremity swelling. Pain. COMPARISON STUDY: Left lower extremity venous Doppler ultrasound January 22, 2022. Right lower ext remity venous Doppler ultrasound November 26, 2015. TECHNIQUE: Sonography of the deep venous system of the bilateral lower extremities was performed. Co mpression and augmentation were evaluated. FINDINGS: The bilateral common femoral, superficial femoral and popliteal veins were compressible. A ugmentation was normal. Flow was shown within the deep calf vessels. Incidental note is made of a 7.5 x 2.2 x 3 cm right popliteal cyst. This is mildly complex. No color flow is identified. IMPRESSION: 1. No evidence of deep venous thrombus within the bilateral lower extremities. 2. 7.5 x 2.2 x 3 cm right popliteal cyst. ACT 112: Negative or not required by law. Electronically signed by: Travis Marquez M.D. 08/05/2023 2:11 PM
--- NOTE | 2023-08-05 16:20 | Hospitalist Progress Note ---
"Date of Service August 05, 2023 Assessment & Plan (1) Community acquired pneumonia: (2) Sepsis: (3) Hypomagnesemia: (4) Elevated troponin: (5) Chronic venous insufficiency: (6) Anemia: (7) Asthma: (8) BPH with obstruction/lower urinary tract symptoms: (9) GERD (gastroesophageal reflux disease): (10) Gout, arthritis: (11) Type 2 diabetes mellitus: (12) Hypertension: (13) Hyperlipidemia: (14) Sleep apnea: Plan Summary: Mango is a 78M w/ PMH of MR, GIST of Stomach, , Castillo esophagus, chronic venous insufficiency, anemia, asthma, BPH w/ LUTS, diabetic peripheral neuropathy, GERD, PAD, T2DM, HTN, HLD, JOSEFINA, and chronic hyponatremia who pres ents for evaluation of a cough and chills. Sepsis likely 2/2 Pulmonary Source * Patient with likely Viral URI 2 weeks ago, now with worsening cough, congestion, fevers, chills, weakness, and confusion * CXR concerning for bilateral pulmonary infiltrates, potential worse in RLL * Respiratory BioFire Negative, Procal negative, Lactate negative * Sepsis: Patient with tachycardia, leukocytosis, and fever w/ suspected pulmonary source * Blood Cultures Pending and negative so far * On IV ceftriaxone and azithromycin, switch to cephalexin p.o. azithromycin * Clinically improving with no more fever spikes * However still has leukocytosis of 18,000 Leukocytosis Patient presented with an elevated white count of 15,000 that increased to 18,000 today Initially thought to be related to pneumonia. With treatment of pneumonia, patient is clinically doing better but his leukocytosis is getting worse No diarrhea Not on steroids other than inhaled steroids. Discontinue fluticasone DVT ruled out Antibiotic associated? Discontinue ceftriaxone IV and switch to p.o. Keflex Treating UTI Elevated Troponin * Rising Trop likely 2/2 demand from active infection vs new A Fib * Cardiology did not recommend any further ischemic workup as this is most likely demand ischemia * No chest pain or dyspnea * Echo 08/02/22 w/ normal LV function, mild LVH, L Atrial enlargement, mild and mild MR, repeat echo reviewed Atrial fibrillation * Maintain K of 4/Mg of 2 * [id number] score was high * Patient was started on heparin drip * However started having hematuria * Heparin drip was discontinued and urology was consulted * No hematuria today * Will continue to hold anticoagulation for the time being * Heart rate controlled fairly * Low-dose metoprolol started by cardiology * Patient is having bigeminy, trigeminy. Replete magnesium. Continue metoprolol. Check mag level stat BPH w/ LUTS | Difficulty Emptying Bladder * Mckeon catheter inserted followed by hematuria * Heparin drip discontinued due to hematuria * Urine clearing at this time * Will continue to hold anticoagulation for the time being * Urine culture growing pansensitive E. coli * Switch to p.o. Keflex Hyponatremia, Acute on Chronic * Baseline 132, 129 on admission * Potential association w/ volume status +/- diuretic use * S/p 500 cc NSS * Resumed Lasix p.o. * Recheck BMP in a.m. Chronic Conditions: * Asthma: Albuterol ordered PRN * Chronic Anemia: Hgb stable at 12.7, Iron supplementation at home * Gout: Continue allopurinol * HTN: Hold antihypertensives (Lisinopril) for hypotension, restart Metoprolol when stable d/t new AFib * DM2: Metformin and Ozempic held, SSI ordered w/ checks ACHS * Chronic Hypomagnesemia: Continue PO supplement * GERD: Continue PPI * HLD: Continue statin * Chronic Pain: continue Tramadol PRN Code Status:Full DVT PPx:Held due to hematuria Admission and Anticipated Discharge Date Admission Date: August 03, 2023 Subjective Patient feels well overall. No more fever spikes. Not coughing anymore. states that he is very weak and less active. He does not have an appetite. Denies any chest pain or shortness of breath. Review of Systems Review of Systems: All systems reviewed & are unremarkable except as noted in Subjective Physical Exam Physical Exam: General: Awake, conversant Heart: S1, S2/regular rate and rhythm, no murmur rubs or gallops Lungs: Clear to auscultation bilaterally. Normal effort Abdomen: Soft/nontender/nondistended. No hepatosplenomegaly Extremities: No clubbing/cyanosis. No edema Behavior: Appropriate, cooperative Results & Data Results & Data Vital Signs (Past 12 Hours) Vital Signs Temp Pulse Pulse Resp BP BP Pulse Ox 08/05/23 16:03 37.0 C 88 18 127/76 97 08/05/23 15:11 69 08/05/23 12:00 36.7 C 82 18 102/57 L 98 08/05/23 08:43 08/05/23 07:27 36.8 C 95 H 18 118/76 94 08/05/23 04:54 37.0 C 87 20 120/64 96 O2 Del Method 08/05/23 16:03 Room Air 08/05/23 15:11 08/05/23 12:00 Room Air 08/05/23 08:43 Room Air 08/05/23 07:27 Room Air 08/05/23 04:54 Room Air Laboratory Results Abnormal lab results 08/04/23 08/04/23 08/05/23 Range/Units 17:00 21:05 08:09 WBC (4.8-10.8) K/ul RBC (4.70-6.10) M/uL Hgb (14.0-18.0) g/dl Hct (42.0-52.0) % RDW Std Deviation (36.4-46.3) fL RDW Coeff of Valdo (11.5-14.5) % Sodium (136-145) mmol/L Chloride (98-107) mmol/L BUN (6-23) mg/dl BUN/Creatinine Ratio (10-20) Glucose (70-99(Fasting)) mg/dl POC Glucose 223 H 184 H 195 H (70-99) mg/dl 08/05/23 08/05/23 Range/Units 08:47 12:16 WBC 18.24 H (4.8-10.8) K/ul RBC 3.23 L (4.70-6.10) M/uL Hgb 10.2 L (14.0-18.0) g/dl Hct 29.8 L (42.0-52.0) % RDW Std Deviation 53.3 H (36.4-46.3) fL RDW Coeff of Valdo 15.9 H (11.5-14.5) % Sodium 128 L (136-145) mmol/L Chloride 95 L (98-107) mmol/L BUN 31 H (6-23) mg/dl BUN/Creatinine Ratio 26.7 H (10-20) Glucose 175 H (70-99(Fasting)) mg/dl POC Glucose 235 H (70-99) mg/dl Diagnostic Findings Venous Doppler Study 08/05/23 11:41 BILATERAL LOWER EXTREMITY VENOUS DOPPLER CLINICAL HISTORY: Lower extremity swelling. Pain. COMPARISON STUDY: Left lower extremity venous Doppler ultrasound January 22, 2022. Right lower extremity venous Doppler ultrasound November 26, 2015. TECHNIQUE: Sonography of the deep venous system of the bilateral lower extremities was performed. Compression and augmentation were evaluated. FINDINGS: The bilateral common femoral, superficial femoral and popliteal veins were compressible. Augmentation was normal. Flow was shown within the deep calf vessels. Incidental note is made of a 7.5 x 2.2 x 3 cm right popliteal cyst. This is mildly complex. No color flow is identified. IMPRESSION: 1. No evidence of deep venous thrombus within the bilateral lower extremities. 2. 7.5 x 2.2 x 3 cm right popliteal cyst. ACT 112: Negative or not required by law. Electronically signed by: Travis Marquez M.D. 08/05/2023 2:11 PM PG Care Time/CCT Total # of Minutes Spent Total Time Spent with Patient: Total time spent is greater than 50% in coordination of care (as documented) at patient's floor/unit and/or counseling patient: Coding Level of Care Code 74442 SUB INP/OBS CARE 2/35MIN Diagnoses Community acquired pneumonia J18.9 Sepsis A41.9 Sepsis acute organ dysfunction status: unspecified Sepsis type: sepsis due to unspecified organism Hypomagnesemia E83.42 Elevated troponin R79.89 Chronic venous insufficiency I87.2 Anemia D64.9 Asthma J45.909 BPH with obstruction/lower urinary tract symptoms N40.1; N13.8 GERD (gastroesophageal reflux disease) K21.9 Gout, arthritis M10.9 Type 2 diabetes mellitus E11.9 Hypertension I10 Hyperlipidemia E78.5 Sleep apnea G47.30 (2) Sepsis Sepsis acute organ dysfunction status: unspecified Sepsis type: sepsis due to unspecified organism Qualified Code(s): A41.9 - Sepsis, unspecified organism"
[2023-08-05] MEDS: MAGNESIUM SULFATE / D5W 1 GM/100 ML BAG IV SCH (16:42)
[2023-08-05 16:46] LABS: Magnesium 1.7 mg/dl (1.7-2.4)
--- NOTE | 2023-08-05 19:28 | Electrocardiogram Report ---
Test Reason : Blood Pressure : / mmHG Vent. Rate : 101 BPM Atrial Rate : 000 BPM P-R Int : 000 ms QRS Dur : 108 ms QT Int : 324 ms P-R-T Axes : 000 -17 081 degrees QTc Int : 420 ms Poor data quality, interpretation may be adversely affected Atrial fibrillation with rapid ventricular response with pvcs Abnormal ECG When compared with ECG of 13-MAR-2022 00:37, No significant change Confirmed by Ronald Hernandez ([id number]) on 08/05/2023 7:27:48 PM Referred By: REFERRED SELF Confirmed By:Ronald Hernandez
[2023-08-05] MEDS: cephALEXin 500 MG CAP PO SCH (19:47)
--- NOTE | 2023-08-06 00:18 | Electrocardiogram Report ---
Test Reason : Blood Pressure : / mmHG Vent. Rate : 092 BPM Atrial Rate : 086 BPM P-R Int : 000 ms QRS Dur : 100 ms QT Int : 356 ms P-R-T Axes : 000 -05 068 degrees QTc Int : 440 ms Poor data quality, interpretation may be adversely affected Atrial fibrillation Low voltage QRS Abnormal ECG When compared with ECG of 03-AUG-2023 00:39, (unconfirmed) No significant change Confirmed by Ronald Hernandez ([id number]) on 08/06/2023 12:17:40 AM Referred By: REFERRED SELF Confirmed By:Ronald Hernandez
[2023-08-06 04:48] LABS: Hematocrit (blood only) 27.6 % (42.0-52.0); Hemoglobin 9.5 g/dl (14.0-18.0); Mean Corpuscular Hemoglobin 31.8 pg (25.0-34.0); Mean Corpuscular Hgb Conc 34.4 g/dL (32.0-36.0); Mean Corpuscular Volume 92.3 fL (80.0-100.0); Mean Platelet Volume 10.4 fL (9.4-12.4); Platelet Count 157 K/uL (130-400); RDW Coefficient of Variation 15.8 % (11.5-14.5); RDW Standard Deviation 53.3 fL (36.4-46.3); Red Blood Count 2.99 M/uL (4.70-6.10); White Blood Count 13.96 K/ul (4.8-10.8)
[2023-08-06 05:00] LABS: BUN Creatinine Ratio 26.7 (10-20); Calcium 9.3 mg/dl (8.6-10.3); Creatinine Clr Calc Pharmacy 73.9 ml/min; Est GFR (African American) 82.2 ml/min; Est GFR (Non-African American) 70.9 ml/min; Magnesium 2.1 mg/dl (1.7-2.4); Potassium 4.1 mmol/L (3.5-5.1)
[2023-08-06] MEDS: AZITHROMYCIN 250 MG TAB PO SCH (05:46)
[2023-08-06 07:33] VITALS: RESP 18
[2023-08-06 11:48] VITALS: PULSE 90; TEMP 97.7; O2SAT 97
--- NOTE | 2023-08-06 14:46 | Discharge Summary ---
"Date of Service August 06, 2023 Admission HPI Per Admitting Provider Mango is a 78M w/ PMH of MR, GIST of Stomach, , barretts esophagus, chronic venous insufficiency, anemia, asthma, BPH w/ LUTS, diabetic peripheral neuropathy, GERD, PAD, T2DM, HTN, HLD, JOSEFINA, and chronic hyponatremia who presents for evaluation of a cough and chills. Presented this evening due to uncontrollable chills and shakes, attempted to warm up with electric heater at home. notes some confusion and difficulty ambulating. Home temperature was noted to be 101. Had gone out to [place] to visit grandchildren 2 weeks ago, but the time he got home he (and his ) had upper respiratory symptoms, most notably a cough. Patient still has a lingering non-productive cough w/o pleuritic pain. No C-19 history. Has a history of BPH with LUTS and cant fully empty his bladder, denies burning or pressure with urination. Patient experiences chronic loose stools for which he takes probiotics and fiber. Patient notes that over the last 4 years he has lost 120 lbs on Ozempic, he was started on this medication for DM2 and his A1c is now at 6. He notes that he often has no appetite and does not eat much. Patient has a history of /MR/Venous insufficiency and takes a diuretic every other day. Patient denies any worsening chest pain, dyspnea, or lower extremity edema. He is not experiencing orthopnea or claudication. Patient denies any history of heart failure. Admission Exam Per Admitting Provider Gen: NAD, alert, interactive, AO x 4, comfortable in bed HEENT: Supple, no LAD, no thyromegaly, no JVD Resp:Non-labored, occasional cough, no wheezing, course air sounds (worst at bases) CV:tachycardic, regular rate, normal S1/S2, 2/6 systolic murmur at LUSB/LLSB Abd: Soft, non-distended, no TTP, normoactive bowels, no masses Extr: 2+ dp bilaterally, trace non-pitting edema, significant LE varicosities Skin: No rashes lesions or erythema Principal Diagnosis Pneumonia, sepsis Atrial fibrillation, new diagnosis Demand ischemia Hematuria secondary to anticoagulation. Anticoagulation discontinued Hyponatremia Acute uncomplicated E. coli urinary tract infection Discharge Exam General: Awake, conversant Heart: S1, S2/regular rate and rhythm, no murmur rubs or gallops Lungs: Clear to auscultation bilaterally. Normal effort Abdomen: Soft/nontender/nondistended. No hepatosplenomegaly Extremities: No clubbing/cyanosis. No edema Behavior: Appropriate, cooperative Discharge Data Allergies Allergy/AdvReac Type Severity Reaction Status Date / Time mold Allergy Intermediate respiratory Verified 08/03/23 01:03 problems atorvastatin AdvReac Intermediate Muscle Verified 08/03/23 01:03 soreness rosuvastatin AdvReac Intermediate Muscle Verified 08/03/23 01:03 soreness simvastatin AdvReac Intermediate Muscle Verified 08/03/23 01:03 soreness Consultations 08/03/23 01:40 ED Decision to Admit Stat 08/03/23 05:26 Consult Cardiology Routine 08/03/23 23:04 Consult Urology Routine Ordered Studies 08/05/23 11:41 US venous doppler [facility] Urgent Hospital Course (1) Community acquired pneumonia: (2) Sepsis: (3) Hypomagnesemia: (4) Elevated troponin: (5) Chronic venous insufficiency: (6) Anemia: (7) Asthma: (8) BPH with obstruction/lower urinary tract symptoms: (9) GERD (gastroesophageal reflux disease): (10) Gout, arthritis: (11) Type 2 diabetes mellitus: (12) Hypertension: (13) Hyperlipidemia: (14) Sleep apnea: Plan Summary: Mango is a 78M w/ PMH of MR, GIST of Stomach, , Castillo esophagus, chronic venous insufficiency, anemia, asthma, BPH w/ LUTS, diabetic peripheral neuropathy, GERD, PAD, T2DM, HTN, HLD, JOSEFINA, and chronic hyponatremia who presents for evaluation of a cough and chills. Sepsis likely 2/2 Pulmonary Source * Patient with likely Viral URI 2 weeks ago, now with worsening cough, congestion, fevers, chills, weakness, and confusion * CXR concerning for bilateral pulmonary infiltrates, potential worse in RLL * Respiratory BioFire Negative, Procal negative, Lactate negative * Sepsis: Patient with tachycardia, leukocytosis, and fever w/ suspected pulmonary source * Blood Cultures negative * On IV ceftriaxone and azithromycin, switch to cephalexin p.o. azithromycin * Clinically improving with no more fever spikes * Leukocytosis improved Leukocytosis Patient presented with an elevated white count of 15,000 that increased to 18,000 today Initially thought to be related to pneumonia. With treatment of pneumonia, patient is clinically doing better but his leukocytosis is getting worse No diarrhea Not on steroids other than inhaled steroids. Discontinue fluticasone DVT ruled out Treating UTI Improved Elevated Troponin * Rising Trop likely 2/2 demand from active infection vs new A Fib * Cardiology did not recommend any further ischemic workup as this is most likely demand ischemia * No chest pain or dyspnea * Echo 08/02/22 w/ normal LV function, mild LVH, L Atrial enlargement, mild and mild MR, repeat echo reviewed Atrial fibrillation * Maintain K of 4/Mg of 2 * [id number] score was high * Patient was started on heparin drip * However started having hematuria * Heparin drip was discontinued and urology was consulted * Patient has had issues with hematuria during his hospitalization * Was treated with CBI with urology on board * No bleeding today * CBI discontinued per urology * Patient is being discharged with a Mckeon catheter in place * Follow-up with urology in 1 week * Will continue to hold anticoagulation for the time being * Heart rate controlled fairly * Low-dose metoprolol started by cardiology * Patient is having bigeminy, trigeminy. Replete magnesium. Continue metoprolol. Check mag level stat BPH w/ LUTS | Difficulty Emptying Bladder * Mckeon catheter inserted followed by hematuria * Heparin drip discontinued due to hematuria * Urine clearing at this time * CBI discontinued per urology. Patient will be going home with a Mckeon catheter. Follow-up with urology * Will continue to hold anticoagulation for the time being * Urine culture growing pansensitive E. coli * Switch to p.o. Keflex Hyponatremia, Acute on Chronic * Baseline 132, 129 on admission * Potential association w/ volume status +/- diuretic use * S/p 500 cc NSS * Resumed Lasix p.o. * Stable Chronic Conditions: * Asthma: Albuterol ordered PRN * Chronic Anemia: Hgb stable at 12.7, Iron supplementation at home * Gout: Continue allopurinol * HTN: Hold antihypertensives (Lisinopril) for hypotension, restart Metoprolol when stable d/t new AFib * DM2: Metformin and Ozempic held, SSI ordered w/ checks ACHS * Chronic Hypomagnesemia: Continue PO supplement * GERD: Continue PPI * HLD: Continue statin * Chronic Pain: continue Tramadol PRN Code Status:Full DVT PPx:Held due to hematuria Total Time Total Time Spent Total Time Spent (In Minutes): 35 Discharge Plan Discharge Items Patient Disposition: Home - Home Health Services Reason For Visit: FEVER / CHILLS / WEAKNESS Discharge Diagnosis: Pneumonia, sepsis Atrial fibrillation, new diagnosis Demand ischemia Hematuria secondary to anticoagulation. Anticoagulation discontinued Hyponatremia Acute uncomplicated E. coli urinary tract infection Activity: Resume your previous activity Non-emergency contact: Primary Care Provider Call non-emergency contact if: you have any medication questions and your symptoms worsen Follow-up/Referrals: Grady Duncan MD [Primary Care Provider] - David Ferguson MD [Physician] - Diet: Carb Consistent or DM2 and Heart Healthy Addtl Attending Provider Instructions: Advised to follow-up with PCP in 1 week Advised to note that you have atrial fibrillation for which you should be on a blood thinner to prevent strokes. However, the blood thinner caused her to start having hematuria. Thus it was discontinued. A blood thinner can be considered at a later time by your primary care physician Advised to follow-up with urology in 1 week Pending Studies at Discharge: No Stand-Alone Forms: My [facility] [employer] Medications and DC Order Prescriptions: New azithromycin 250 mg Tablet 500 mg PO DAILYBB 2 Days Qty: 4 0RF cephalexin 500 mg Capsule 500 mg PO BID 4 Days Qty: 8 0RF Continued (DME) lancets [OneTouch Delica Lancets] 33 gauge misc See Rx Instructions .ROUTE .MEDSUPPLY Qty: 400 3RF Rx Instructions: use to test 4 times daily (DME) OneTouch Verio test strips Strip See Rx Instructions .ROUTE .MEDSUPPLY Qty: 50 11RF Rx Instructions: USE TO TEST ONCE DAILY E11.9 PRN lisinopril 20 mg tablet 40 mg PO QAM 90 Days Qty: 180 3RF metoprolol tartrate 50 mg tablet 50 mg PO BID Qty: 180 3RF furosemide 40 mg tablet 40 mg PO QAM Qty: 90 3RF omeprazole 40 mg capsule,delayed release(DR/EC) 40 mg PO DAILY Qty: 30 5RF allopurinol 300 mg tablet 300 mg PO BID Qty: 180 tamsulosin 0.4 mg capsule 0.4 mg PO BID Qty: 180 3RF cinnamon bark [Cinnamon] 500 mg capsule 500 mg PO BID tramadol 50 mg tablet 50 mg PO BID PRN (Reason: Pain) aspirin [Jie Low Dose Aspirin] 81 mg Tablet,Delayed Release (Dr/Ec) 81 mg PO HS mecobalamin (vitamin B12) 1,000 mcg tablet,disintegrating 1,000 mcg SL BID omega-3 fatty acids 1,000 mg Capsule 1,000 mg PO BID ascorbic acid (vitamin C) [Vitamin C] 500 mg Tablet 500 mg PO QAM ferrous sulfate 325 mg (65 mg iron) Tablet 325 mg PO QAM cholecalciferol (vitamin D3) [Vitamin D3] 50 mcg (2,000 unit) Capsule 50 mcg PO DAILY albuterol sulfate 90 mcg/actuation HFA aerosol inhaler 1 inh inhalation QID PRN (Reason: shortness of breath or wheezing) Qty: 6.7 0RF fluticasone propion-salmeterol [Wixela Inhub] 500-50 mcg/dose blister with device 1 inh inhalation BID potassium chloride 10 mEq Capsule, Extended Release 10 meq PO DAILY magnesium oxide 420 mg Tablet 420 mg PO BID metformin 1,000 mg tablet 1,000 mg PO BID pravastatin 20 mg Tablet 20 mg PO DAILY Ozempic 1 mg/dose (4 mg/3 mL) Pen Injector 1 mg SUBCUT WK Rx Instructions: SUNDAYS furosemide 20 mg tablet 20 mg PO 3XWK Rx Instructions: TUE, WED, & FRI, TAKES WITH 40 MG TAB TO EQUAL 60 MG. Discharge Orders: Discharge Order (Routine); Ordered 08/06/23 Ordered By: Anna Pinto Admission Data Admit Date/Time: 08/03/23 02:28 Attending Provider: Anna Pinto Admit Provider: Lazara Bustamante Primary Care Provider: Grady Duncan Other Providers: Conner Short; Lior Diaz; Carlos Lion; oGnzalo Bowling; Bart Segura; Ronald Hernandez; Anup Montiel Jr; Jimmy Todd; Viky Montes De Oca; Concepcion Winston; Grady Kumar; Grady Longoria; Miguel Allen; Tracy Pinzon; Chriss Goldsmith; Delphine Gallagher; Sid Camarena; Dereck Byrd; Domo Wilkins; Melvin Kramer; David Ferguson; [facility] Coding Level of Care Code 02765 INP/OBS DISCH >30 MIN Diagnoses Community acquired pneumonia J18.9 Sepsis A41.9 Sepsis acute organ dysfunction status: unspecified Sepsis type: sepsis due to unspecified organism Hypomagnesemia E83.42 Elevated troponin R79.89 Chronic venous insufficiency I87.2 Anemia D64.9 Asthma J45.909 BPH with obstruction/lower urinary tract symptoms N40.1; N13.8 GERD (gastroesophageal reflux disease) K21.9 Gout, arthritis M10.9 Type 2 diabetes mellitus E11.9 Hypertension I10 Hyperlipidemia E78.5 Sleep apnea G47.30"
[2023-08-06 15:27] VITALS: BP 127/73
== END 2023-08-06 15:27 | disposition home health service (06) | DRG 871 ==
LOC: ED 23:45 → 2W 08-03 02:28 → SUATTDRO 08-03 02:28 → 2W 08-03 03:21
DX: B96.20 Unspecified Escherichia coli [E. coli] as the cause of diseases classified elsewhere; K21.9 Gastro-esophageal reflux disease without esophagitis; Z91.09 Other allergy status, other than to drugs and biological substances; D68.32 Hemorrhagic disorder due to extrinsic circulating anticoagulants; I48.91 Unspecified atrial fibrillation; S37.30XA Unspecified injury of urethra, initial encounter; I87.2 Venous insufficiency (chronic) (peripheral); Z79.82 Long term (current) use of aspirin; I10 Essential (primary) hypertension; N40.1 Benign prostatic hyperplasia with lower urinary tract symptoms; Z79.84 Long term (current) use of oral hypoglycemic drugs; Y84.6 Urinary catheterization as the cause of abnormal reaction of the patient, or of later complication, without mention of misadventure at the time of the procedure; J45.909 Unspecified asthma, uncomplicated; E83.42 Hypomagnesemia; Z79.51 Long term (current) use of inhaled steroids; I24.89 Other forms of acute ischemic heart disease; J18.9 Pneumonia, unspecified organism; Z87.01 Personal history of pneumonia (recurrent); Z88.8 Allergy status to other drugs, medicaments and biological substances; Z79.85 Long-term (current) use of injectable non-insulin antidiabetic drugs; D64.9 Anemia, unspecified; N39.0 Urinary tract infection, site not specified; Z79.899 Other long term (current) drug therapy; R33.8 Other retention of urine; N99.820 Postprocedural hemorrhage of a genitourinary system organ or structure following a genitourinary system procedure; Z87.891 Personal history of nicotine dependence; E11.9 Type 2 diabetes mellitus without complications; G47.33 Obstructive sleep apnea (adult) (pediatric); E78.5 Hyperlipidemia, unspecified; G89.29 Other chronic pain; R31.0 Gross hematuria; T45.515A Adverse effect of anticoagulants, initial encounter; M10.9 Gout, unspecified; E87.1 Hypo-osmolality and hyponatremia; A41.9 Sepsis, unspecified organism; Y73.2 Prosthetic and other implants, materials and accessory gastroenterology and urology devices associated with adverse incidents

== ENCOUNTER 2024-04-16 03:08 | Observation (INO) ==
[2024-04-16 03:45] LABS: Basophils # (auto) 0.02 K/uL (0.00-0.20); Basophils % (auto) 0.1 %; Eosinophils # (auto) 0.05 K/uL (0.00-0.50); Eosinophils % (auto) 0.4 %; Hemoglobin 11.8 g/dl (14.0-18.0); Immature Granulocytes # (auto) 0.15 K/uL (0.01-0.20); Immature Granulocytes % (auto) 1.1 %; Lymphocytes # (auto) 2.91 K/uL (1.20-3.40); Lymphocytes % (auto) 21.6 %; Mean Corpuscular Hemoglobin 32.2 pg (25.0-34.0); Mean Corpuscular Hgb Conc 34.7 g/dL (32.0-36.0); Mean Corpuscular Volume 92.9 fL (80.0-100.0); Monocytes % (auto) 8.9 %; Neutrophils # (auto) 9.12 K/uL (1.40-6.50); Neutrophils % (auto) 67.9 %; Platelet Count 200 K/uL (130-400); RDW Coefficient of Variation 15.6 % (11.5-14.5); RDW Standard Deviation 52.8 fL (36.4-46.3); Red Blood Count 3.66 M/uL (4.70-6.10); White Blood Count 13.45 K/ul (4.8-10.8)
[2024-04-16 03:53] LABS: Albumin Globulin Ratio 1.4 (0.9-2); Albumin Level 4.1 gm/dl (3.4-5.0); BUN Creatinine Ratio 26.8 (10-20); Bilirubin,Total 0.5 mg/dl (0.2-1.0); Calcium 10.1 mg/dl (8.6-10.3); Creatinine Clr Calc Pharmacy 68.3 ml/min; Potassium 4.3 mmol/L (3.5-5.1); Total Protein 7.1 gm/dl (6.0-8.3)
[2024-04-16 04:04] LABS: Troponin I High Sensitivity 55.3 pg/ml (0-20)
--- NOTE | 2024-04-16 04:52 | XRay Report ---
EXAM: XR chest 1V portable CLINICAL HISTORY: CHEST PAIN. TECHNIQUE: X-ray images of the chest were obtained in the frontal projection. COMPARISON: CR: 09/12/2023. FINDINGS: Pulmonary Parenchyma: No evidence of consolidation, collapse, or focal opacities. No pulmonary nodules were identified. No evidence of pleural effusion or pleural thickening. Heart and Mediastinum: Still noted cardiomegaly with suspected size increase of the right cardiac border (could be positional). No hilar or mediastinal lymphadenopathy. Still noted bilateral prominent hilar vascular shadows Bony Thorax: The bony thorax appears intact without fractures or deformities. IMPRESSION: 1. Still noted cardiomegaly with suspected size increase of the right cardiac border. 2. Still noted bilateral prominent hilar vascular shadows; likely secondary to congestion. 3. Clinical correlation and follow-up are recommended. 4. No consolidation or cavitation seen. Electronically signed by Scott Jolly 04-16-2024 04:51 AM
--- NOTE | 2024-04-16 04:52 | History & Physical Report ---
Date of Service April 16, 2024 Assessment & Plan (1) Chest pain: Plan: -Patient with substernal chest pain that started at approximately 5 PM on 04/15. Has been relatively consistent since getting to the ED. -Given aspirin on the way to the hospital. Unable to give nitro due to blood pressure. -CBC benign though did show a leukocytosis. Most likely secondary to prednisone use. -CMP showed elevated alk phos which is chronic. -BNP of 299. -Chest x-ray showed cardiomegaly with bilateral pulmonary hilar vascular shadows. -Troponin of 55 in the ED, repeat 2-hour of 57 at time of admission. Will continue trending troponin every 6 hours. -EKG shows first-degree AV block and PVCs. Normal sinus rhythm. No ST elevation or depression. No signs of ischemia. -At time of admission patient was given fentanyl 50 mcg. -Cardiology consulted. Will keep n.p.o. at this time until evaluation in the AM. -Did consider to heparinize the patient though he is on Eliquis. Will continue Eliquis and refer to cardiology recommendation if procedure is needed or not. (2) Peripheral arterial disease: Plan: -Patient with peripheral artery disease that is currently being worked up. Had a recent venous duplex ultrasound which was negative. -Is supposed to have arterial duplex lower extremities done on Tuesday. If prolonged stay may consider doing this inpatient. -Patient was recently prescribed a Medrol Dosepak. Patient felt little benefit with steroids. Will DC them at this time and refer to cardiology/vascular. -Will put in for PT OT as patient has been having issues with pain while [facility]. (3) Hyperlipidemia: Plan: -Continue home pravastatin. (4) Sleep apnea: Plan: -CPAP at night. (5) Hypertension: Plan: -Will hold patient's lisinopril, metoprolol, and furosemide at time of admission due to issues with low blood pressure and not being able to give nitro. -Should restart once chest pain rule out (6) Asthma: Plan: -Continue albuterol inhaler as needed. (7) Atrial fibrillation: Plan: -Patient with a history of atrial fibrillation status post cardioversion. On Eliquis. Will continue at time of admission. 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 Code status: Full code DVT ppx: Eliquis Consults: Cardiology PT/OT: Ordered Dispo: PCU/telemetry History of Present Illness Chief Complaint: NSTEMI Primary Care Provider: Grady Duncan MD Patient is a 78-year-old male with past medical history of type 2 diabetes, peripheral artery disease, atrial fibrillation, GERD, hypertension, hyperlipidemia, sleep apnea on CPAP, and history of GIST who presents to the hospital with chest pain that started at 1700 on 04/15. Patient was having substernal chest pain that started at 5 PM today. States that chest pain has been pretty consistent since starting. Patient denies any nausea, vomiting, cough, abdominal pain, fever, chills. Patient states that he had a recent been prescribed prednisone. He is on his fifth day of prednisone. Patient also states that his peripheral artery disease has been getting worse. States that his pain is pretty significant in his left leg. Patient had a duplex ultrasound bilaterally which were negative. He was scheduled to have a arterial scan done on Tuesday. States this is why he was prescribed prednisone. Allergies Allergy/AdvReac Type Severity Reaction Status Date / Time mold Allergy Intermediate respiratory Verified 04/11/24 14:29 problems atorvastatin AdvReac Intermediate Muscle Verified 04/11/24 14:29 soreness rosuvastatin AdvReac Intermediate Muscle Verified 04/11/24 14:29 soreness simvastatin AdvReac Intermediate Muscle Verified 04/11/24 14:29 soreness Home Medications Medication Instructions Recorded Confirmed Type cinnamon bark 500 mg capsule 500 mg PO BID 01/15/19 04/11/24 History (Cinnamon) mecobalamin (vitamin B12) 1,000 1,000 mcg sublingual BID 02/26/19 04/11/24 History mcg disintegrating tablet,sublingual OneTouch Delica Lancets 33 gauge #400 ea 01/11/20 04/11/24 Rx (lancets) blood sugar diagnostic (OneTouch #50 ea 11/13/21 04/11/24 Rx Verio test strips) albuterol sulfate 90 mcg/actuation 1 inh inhalation QID PRN shortness 03/13/22 04/11/24 Rx aerosol inhaler of breath or wheezing #6.7 grams ascorbic acid (vitamin C) 500 mg 250 mg PO QAM 03/13/22 04/11/24 History tablet (Vitamin C) cholecalciferol (vitamin D3) 50 50 mcg PO QAM 03/13/22 04/11/24 History mcg (2,000 unit) capsule (Vitamin D3) ferrous sulfate 325 mg (65 mg 325 mg PO QAM 03/13/22 04/11/24 History iron) tablet omega-3 fatty acids 1,000 mg 1,000 mg PO BID 03/13/22 04/11/24 History capsule fluticasone 500 mcg-salmeterol 50 1 inh inhalation BID 06/03/22 04/11/24 History mcg/dose blistr powdr for inhalation (Wixela Inhub) allopurinol 300 mg tablet 300 mg PO BID #180 tabs 02/23/23 04/11/24 History tamsulosin 0.4 mg capsule 0.4 mg PO BID #180 caps 03/22/23 04/11/24 Rx potassium chloride 10 mEq 10 meq PO QAM 08/03/23 04/11/24 History capsule,extended release semaglutide 1 mg/dose (4 mg/3 mL) 1 mg subcut WK 08/03/23 04/11/24 History subcutaneous pen injector (Ozempic) magnesium oxide 420 mg tablet 420 mg PO QAM 08/18/23 04/11/24 History metoprolol tartrate 50 mg tablet 50 mg PO BID hypertension #180 09/12/23 04/11/24 Rx tabs lisinopril 20 mg tablet 20 mg PO QAM 10/12/23 04/11/24 History omeprazole 20 mg capsule,delayed 20 mg PO QAM 10/12/23 04/11/24 History release pravastatin 20 mg tablet 20 mg PO QAM 10/12/23 04/11/24 History apixaban 5 mg tablet (Eliquis) 5 mg PO BID #60 tabs 11/07/23 04/11/24 Rx vitamin b12 PO DAILY 11/07/23 04/11/24 History dutasteride 0.5 mg capsule 0.5 mg PO DAILY 11/11/23 04/11/24 History furosemide 40 mg tablet 40 mg PO QAM #90 tabs 01/18/24 04/11/24 Rx methylprednisolone 4 mg tablets in See Rx Instructions .Route 04/11/24 04/11/24 Rx a dose pack (Medrol (Juan)) .COMPLEX #21 ea Past Med/Surg History Problem List (Updated 04/11/24 @ 17:14 by Dina Wright PA-C) Lumbar spinal stenosis Bilateral leg pain (Acute) Type 2 diabetes mellitus with obesity Urethral stricture 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 Hematuria Hypomagnesemia (Acute) Lower extremity edema Right atrial dilatation Heme positive stool Mitral regurgitation Lumbosacral radiculopathy at L4 Elevated alkaline phosphatase level Left rotator cuff tear Injury of left upper arm Aortic stenosis Subcutaneous mass of right forearm Arthritis of right knee Adenomatous colon polyp Barretts esophagus Chronic venous insufficiency Acquired deviated nasal septum Allergic rhinitis Anemia Asthma BPH with obstruction/lower urinary tract symptoms Carpal tunnel syndrome Diabetic peripheral neuropathy Edema Elevated PSA GERD (gastroesophageal reflux disease) Gout, arthritis Hiatal hernia Inhibited sexual excitement Insomnia Intermittent claudication Joint pain, knee Morbid obesity Nocturnal hypoxia Osteoarthritis of knee Peripheral arterial disease Sensory problems with limbs 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 Hypertension Hyperlipidemia Sleep apnea CPAP Medical History Hyperlipidemia Hypertension Arteriosclerosis of carotid artery Hx of gout GERD (gastroesophageal reflux disease) Hiatal hernia Sleep apnea Chronic venous insufficiency BPH (benign prostatic hyperplasia) Barretts esophagus Chronic anemia Aortic stenosis History of skin cancer Atrial fibrillation Asthma Pulmonary hypertension 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 History of colon polyps History of stomach ulcers Surgical History History of Mohs micrographic surgery for skin cancer H/O left cataract extraction History of right cataract surgery History of biopsy H/O vascular surgery History of carpal tunnel release of both wrists History of prostate biopsy History of colonoscopy with polypectomy History of esophagogastroduodenoscopy (EGD) History of tooth extraction History of wisdom tooth extraction History of tonsillectomy S/P cholecystectomy S/P cardiac cath Family History Father Myocardial infarction Mother Family history of diabetes mellitus Brother Family history of diabetes mellitus Other No family history of adverse response to anesthesia Denies family history of Ovarian cancer Prostate cancer Coronary heart disease Breast cancer Colorectal cancer Social History Smoking Status: Former smoker Tobacco Type: Cigarettes Age Started Using Tobacco: 11; Age Quit Using Tobacco: 42; packs per day: 1; Cigarettes Per Day: Quit 30+yrs ago; Second Hand Exposure: No; Do You Dip or Chew Tobacco: No; Hx Alcohol Use: No Hx Substance Use: No Preferred Language: Turkmen Communication Ability: Effective Visual Impairment: No Limitations Hearing Ability: Normal Learning Technologist Required: No Beliefs That Will Affect Care: None marital status: Current Living Situation: Spouse current occupational status: retired 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[facility] Feels Safe at Home: Yes Childhood Exposure to Second-Hand Smoke: No Diet: regular caffeine: Yes during the past year weight has: remained stable Dental Care, Regularly: Yes Physical Activity Frequency: Does not Exercise Seatbelt Use: always Sunscreen Use: Yes Assistive Devices: Cane, CPAP, Denture - Upper and Glasses Review of Systems Review of Systems: All systems reviewed & are unremarkable except as noted in Subjective Physical Exam Physical Exam: Constitutional: well-appearing, no acute distress HEENT: NCAT, no conjunctival injection CV: regular rhythm, systolic murmur, extremities well-perfused, bilateral lower extremity varicosities, no lower extremity edema Resp: CTABL, no wheezes/rales/rhonchi appreciated, no increased work of breathing GI: soft, nondistended, nontender, BS normoactive MSK: no gross deformities appreciated Skin: warm, dry, no rash appreciated Neuro: alert, oriented, no focal neurologic deficit appreciated Results & Data Results & Data Vital Signs (Past 12 Hours) Vital Signs Temp Pulse Pulse Resp BP BP Pulse Ox 04/16/24 04:00 64 16 114/61 96 04/16/24 03:40 71 04/16/24 03:31 64 16 122/61 96 04/16/24 03:19 70 04/16/24 03:19 98 04/16/24 03:17 36.8 C 70 20 132/70 97 O2 Del Method 04/16/24 04:00 Room Air 04/16/24 03:40 04/16/24 03:31 Room Air 04/16/24 03:19 04/16/24 03:19 Room Air 04/16/24 03:17 Room Air Supervising Physician Co-Signing Physician Notes Attending addendum: I have physically seen this patient, have supervised the medical residents activities, and agree with the H&P unless as otherwise noted. Assessment and Plan: Chest pain of cardiac etiology- Patient presents to the emergency department with persistence of chest pain that began earlier in the evening. He notified his , who then called EMS, and patient is brought to the e mergency department for assessment. In the emergency department, the first EKG showed ventricular trigeminy Second EKG showed first-degree heart block with PACs Review of previous EKGs has showed variable rhythms including ventricular trigeminy, ventricular bigeminy, and atrial fibrillation The patient will be admitted to telemetry for serial cardiac enzymes, serial EKG's, cardiac rhythm monitoring and a 2-D echocardiogram with Dopplers. Patient has been taking his Eliquis as directed Troponin initially 55.3, with follow-up 57.8 BNP 299 Chest x-ray shows cardiomegaly with no signs of CHF Potassium level 4.3, magnesium level is now added and pending Patient has been on a tapering dose of steroids for peripheral neuropathy, and physical distress may be contributing to his heart symptoms For now hold metoprolol tartrate 50 mg p.o. twice daily due to second EKG with significant first-degree heart block Hold lisinopril and furosemide due to relatively low blood pressure Diabetes mellitus- Hold Ozempic Placed on Accu-Cheks with NovoLog SSI Sleep apnea/asthma- Continue CPAP at bedtime Continue routine inhalers as needed Resident Activity Tracking Resident Involvement: Resident Care Provided Care Provided: Adult Hospital Medicine (5) Hypertension Hypertension type: primary hypertension Qualified Code(s): I10 - Essential (primary) hypertension
--- NOTE | 2024-04-16 05:18 | Emergency Department Note ---
Impression & Plan Substernal chest pain, Elevated troponin admit to the [facility] ED Provider Note NAME: KULDIP LANTIGUA AGE: 78 SEX: Male INFORMANT: Patient ED PROVIDER(S): Nitza Dickerson DO CHIEF COMPLAINT: chest pain PLAN: Disposition: admit to the [facility] MEDICAL DECISION MAKING: this is a 78-year-old male patient who presents to the emergency department with substernal chest discomfort since 5 PM this evening. Patient explains that he has been suffering from pain in both of his legs over the past week. He underwent lower extremity duplex of the veins there is PCP office which was negative for clot and he was scheduled to have arterial evaluation this week. He had been placed on prednisone for the pain but got no improvement of his symptoms. He states that the left is worse than the right. EKG was performed and revealed no ST segment elevation. The patient was having frequent multifocal PVCs. Laboratory studies revealed a white blood cell count of 13.4. Sodium was slightly low at 132. BUN was elevated at 30 but this is normal for this patient. Glucose was 163. Troponin was elevated at 55. BNP was elevated at 299. The patient was given a dose of IV fentanyl for the pain in his chest which she rated as a 5/10. Patient's blood pressure was in the low 100s systolically. I did not feel comfortable giving this patient nitroglycerin. Chest x-ray showed some mild pulmonary vascular congestion. Care/management discussed with: manager lean and the [facility] group Triage Nursing notes: reviewed and agree with them. Vital Signs: reviewed and remarkable for bradycardia Additional History obtained from: the patient's is at the bedside Differential Diagnosis: aortic dissection, cardiac ischemia, CHF, cardiac dysrhythmia, GERD Diagnostics, independently interpreted by me: ECG: Normal sinus rhythm at a rate of 67 with first-degree AV block and PVCs. There is no ST segment elevation or signs of ischemia. Cardiac Monitoring: Normal sinus rhythm at 72 with multifocal PVCs. Imaging studies: Portable chest x-ray: Cardiomegaly with no acute pulmonary infiltrates or pleural effusions. HPI: 78 year old Male arrives for evaluation of Substernal chest pain. patient had a fairly sudden onset of substernal chest discomfort since 5 PM this evening. Patient explains that he has been suffering from pain in both of his legs over the past week. He underwent lower extremity duplex of the veins there is PCP office which was negative for clot and he was scheduled to have arterial evaluation this week. He had been placed on prednisone for the pain but got no improvement of his symptoms. He states that the left is worse than the right PAST MEDICAL HISTORY: See Below, PAST SURGICAL HISTORY: See Below, SOCIAL HISTORY: See Below, HOME MEDICATIONS: see list ALLERGIES: See Below VITALS: see list PHYSICAL EXAMINATION: HEENT: Head - normocephalic and atraumatic Pupils are equal, round, and reactive to light. Extraocular eye muscles are intact, and sclera are anicteric. Nose - moist nasal mucosa without discharge. Mouth - moist buccal mucosa. Oropharynx is nonerythematous and there is no tonsillar exudate or edema noted. Neck: Supple; no JVD appreciated. Heart: Regular rate and rhythm. There is a normal S1 and S2 with no murmurs, clicks, or gallops appreciated. Lungs: Clear to auscultation bilaterally with no wheezes, rales, or rhonchi. Abdomen: Soft, completely nontender, nondistended, with good bowel sounds. There are no palpable pulsatile masses or hepatosplenomegaly. There is no guarding, rigidity, or rebound noted. Extremities: No evidence of cyanosis, clubbing, or edema. There are easily palpable peripheral pulses. Skin: warm and dry with good turgor and no rashes. Emergency department treatment: color television console monitor, IV fentanyl Emergency Department course: The patient was evaluated in room A-10. A complete history and physical was performed. A twelve-lead EKG was obtained as described above. An order was placed for continuous cardiac monitoring. The patient has a normal sinus rhythm at a rate of 72 with multifocal PVCs. Portable chest x-ray was performed. Patient was given a dose of IV fentanyl for pain. I discussed the case with the [facility] hospitalist team. 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 Hematuria Hypomagnesemia (Acute) Lower extremity edema Right atrial dilatation Heme positive stool Mitral regurgitation Lumbosacral radiculopathy at L4 Elevated alkaline phosphatase level Left rotator cuff tear Injury of left upper arm Aortic stenosis Subcutaneous mass of right forearm Arthritis of right knee Adenomatous colon polyp Barretts esophagus Chronic venous insufficiency Acquired deviated nasal septum Allergic rhinitis Anemia Asthma BPH with obstruction/lower urinary tract symptoms Carpal tunnel syndrome Diabetic peripheral neuropathy Edema Elevated PSA GERD (gastroesophageal reflux disease) Gout, arthritis Hiatal hernia Inhibited sexual excitement Insomnia Intermittent claudication Joint pain, knee Morbid obesity Nocturnal hypoxia Osteoarthritis of knee Peripheral arterial disease Sensory problems with limbs 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 Hypertension Hyperlipidemia Sleep apnea CPAP Medical History Hyperlipidemia Hypertension Arteriosclerosis of carotid artery Hx of gout GERD (gastroesophageal reflux disease) Hiatal hernia Sleep apnea Chronic venous insufficiency BPH (benign prostatic hyperplasia) Barretts esophagus Chronic anemia Aortic stenosis History of skin cancer Atrial fibrillation Asthma Pulmonary hypertension 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 History of colon polyps History of stomach ulcers Surgical History History of Mohs micrographic surgery for skin cancer H/O left cataract extraction History of right cataract surgery History of biopsy H/O vascular surgery History of carpal tunnel release of both wrists History of prostate biopsy History of colonoscopy with polypectomy History of esophagogastroduodenoscopy (EGD) History of tooth extraction History of wisdom tooth extraction History of tonsillectomy S/P cholecystectomy S/P cardiac cath Family History Father Myocardial infarction Mother Family history of diabetes mellitus Brother Family history of diabetes mellitus Other No family history of adverse response to anesthesia Denies family history of Ovarian cancer Prostate cancer Coronary heart disease Breast cancer Colorectal cancer Social History Smoking Status: Former smoker Tobacco Type: Cigarettes Age Started Using Tobacco: 11; Age Quit Using Tobacco: 42; packs per day: 1; Cigarettes Per Day: Quit 30+yrs ago; Second Hand Exposure: No; Do You Dip or Chew Tobacco: No; Hx Alcohol Use: No Hx Substance Use: No Preferred Language: Greenlandic Communication Ability: Effective Visual Impairment: No Limitations Hearing Ability: Normal [place] Required: No Beliefs That Will Affect Care: None marital status: Current Living Situation: Spouse current occupational status: retired 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[employer] Other Information That Helps Us Care for You: No Feels Safe at Home: Yes Safety Concerns: Feels Safe At This Time Childhood Exposure to Second-Hand Smoke: No Diet: regular caffeine: Yes during the past year weight has: remained stable Dental Care, Regularly: Yes Physical Activity Frequency: Does not Exercise Seatbelt Use: always Sunscreen Use: Yes Assistive Devices: Cane Allergies Allergies Allergy/AdvReac Type Severity Reaction Status Date / Time mold Allergy Intermediate respiratory Verified 04/11/24 14:29 problems atorvastatin AdvReac Intermediate Muscle Verified 04/11/24 14:29 soreness rosuvastatin AdvReac Intermediate Muscle Verified 04/11/24 14:29 soreness simvastatin AdvReac Intermediate Muscle Verified 04/11/24 14:29 soreness Home Meds Home Medications Medication Instructions Recorded Confirmed cinnamon bark 500 mg capsule 500 mg PO BID 01/15/19 04/11/24 (Cinnamon) mecobalamin (vitamin B12) 1,000 1,000 mcg sublingual BID 02/26/19 04/11/24 mcg disintegrating tablet,sublingual ascorbic acid (vitamin C) 500 mg 250 mg PO QAM 03/13/22 04/11/24 tablet (Vitamin C) cholecalciferol (vitamin D3) 50 50 mcg PO QAM 03/13/22 04/11/24 mcg (2,000 unit) capsule (Vitamin D3) ferrous sulfate 325 mg (65 mg 325 mg PO QAM 03/13/22 04/11/24 iron) tablet omega-3 fatty acids 1,000 mg 1,000 mg PO BID 03/13/22 04/11/24 capsule fluticasone 500 mcg-salmeterol 50 1 inh inhalation BID 06/03/22 04/11/24 mcg/dose blistr powdr for inhalation (Wixela Inhub) allopurinol 300 mg tablet 300 mg PO BID #180 tabs 02/23/23 04/11/24 potassium chloride 10 mEq 10 meq PO QAM 08/03/23 04/11/24 capsule,extended release semaglutide 1 mg/dose (4 mg/3 mL) 1 mg subcut WK 08/03/23 04/11/24 subcutaneous pen injector (Ozempic) magnesium oxide 420 mg tablet 420 mg PO QAM 08/18/23 04/11/24 lisinopril 20 mg tablet 20 mg PO QAM 10/12/23 04/11/24 omeprazole 20 mg capsule,delayed 20 mg PO QAM 10/12/23 04/11/24 release pravastatin 20 mg tablet 20 mg PO QAM 10/12/23 04/11/24 vitamin b12 PO DAILY 11/07/23 04/11/24 dutasteride 0.5 mg capsule 0.5 mg PO DAILY 11/11/23 04/11/24 Previous Rx's Medication Instructions Recorded OneTouch Delica Lancets 33 gauge #400 ea 01/11/20 (lancets) blood sugar diagnostic (OneTouch #50 ea 11/13/21 Verio test strips) albuterol sulfate 90 mcg/actuation 1 inh inhalation QID PRN shortness 03/13/22 aerosol inhaler of breath or wheezing #6.7 grams tamsulosin 0.4 mg capsule 0.4 mg PO BID #180 caps 03/22/23 metoprolol tartrate 50 mg tablet 50 mg PO BID hypertension #180 09/12/23 tabs apixaban 5 mg tablet (Eliquis) 5 mg PO BID #60 tabs 11/07/23 furosemide 40 mg tablet 40 mg PO QAM #90 tabs 01/18/24 methylprednisolone 4 mg tablets in See Rx Instructions .Route 04/11/24 a dose pack (Medrol (Juan)) .COMPLEX #21 ea Results & Data (ED) Vital Signs Vital Signs - 24 hr 04/16/24 03:17 04/16/24 03:19 04/16/24 03:19 Temperature 36.8 C Temperature Source Oral Pulse Rate 70 70 Pulse Rate [Apical] Pulse Rhythm [Apical] Respiratory Rate 20 Respiratory Effort / Characteristics Non-Labored Spontaneous Respiratory Depth Normal Respiratory Pattern Regular Blood Pressure 132/70 Blood Pressure [Right Arm] Blood Pressure Mean 90 Blood Pressure Mean [Right Arm] Blood Pressure Position Semi-fowlers Blood Pressure Position [Right Arm] Pulse Oximetry 97 98 Oxygen Delivery Method Room Air Room Air Sepsis Recent Fever Within 48 Hours No Sepsis New/Unexplained Change in Mental Status N/A Sepsis Action Taken by Nursing No Action Required 04/16/24 03:31 04/16/24 03:40 04/16/24 04:00 Temperature Temperature Source Pulse Rate 71 Pulse Rate [Apical] 64 64 Pulse Rhythm [Apical] Irregular Irregular Respiratory Rate 16 16 Respiratory Effort / Characteristics Non-Labored Spontaneous Non-Labored Spontaneous Respiratory Depth Normal Normal Respiratory Pattern Regular Regular Blood Pressure Blood Pressure [Right Arm] 122/61 114/61 Blood Pressure Mean Blood Pressure Mean [Right Arm] 81 78 Blood Pressure Position Blood Pressure Position [Right Arm] Semi-fowlers Semi-fowlers Pulse Oximetry 96 96 Oxygen Delivery Method Room Air Room Air Sepsis Recent Fever Within 48 Hours Sepsis New/Unexplained Change in Mental Status Sepsis Action Taken by Nursing 04/16/24 04:30 Temperature Temperature Source Pulse Rate Pulse Rate [Apical] 64 Pulse Rhythm [Apical] Irregular Respiratory Rate 18 Respiratory Effort / Characteristics Non-Labored Spontaneous Respiratory Depth Normal Respiratory Pattern Regular Blood Pressure Blood Pressure [Right Arm] 111/57 L Blood Pressure Mean Blood Pressure Mean [Right Arm] 75 Blood Pressure Position Blood Pressure Position [Right Arm] Semi-fowlers Pulse Oximetry 95 Oxygen Delivery Method Room Air Sepsis Recent Fever Within 48 Hours Sepsis New/Unexplained Change in Mental Status Sepsis Action Taken by Nursing Laboratory Data 04/16/24 03:22 04/16/24 03:22 Lab Results 04/16/24 04/16/24 Range/Units 03:22 05:05 WBC 13.45 H (4.8-10.8) K/ul RBC 3.66 L (4.70-6.10) M/uL Hgb 11.8 L (14.0-18.0) g/dl Hct 34.0 L (42.0-52.0) % MCV 92.9 (80.0-100.0) fL MCH 32.2 (25.0-34.0) pg MCHC 34.7 (32.0-36.0) g/dL RDW Std Deviation 52.8 H (36.4-46.3) fL RDW Coeff of Valdo 15.6 H (11.5-14.5) % Plt Count 200 (130-400) K/uL MPV 10.0 (9.4-12.4) fL Immature Gran % (Auto) 1.1 % Neut % (Auto) 67.9 % Lymph % (Auto) 21.6 % [place] % (Auto) 8.9 % Eos % (Auto) 0.4 % Baso % (Auto) 0.1 % Neut # (Auto) 9.12 H (1.40-6.50) K/uL Lymph # (Auto) 2.91 (1.20-3.40) K/uL [place] # (Auto) 1.20 H (0.11-0.59) K/uL Eos # (Auto) 0.05 (0.00-0.50) K/uL Baso # (Auto) 0.02 (0.00-0.20) K/uL Immature Gran # (Auto) 0.15 (0.01-0.20) K/uL Sodium 132 L (136-145) mmol/L Potassium 4.3 (3.5-5.1) mmol/L Chloride 95 L (98-107) mmol/L Carbon Dioxide 29 (21-32) mmol/L Anion Gap 8 (3-11) BUN 30 H (6-23) mg/dl Creatinine 1.12 (0.6-1.4) mg/dl Est Cr Clr Drug Dosing 68.3 ml/min eGFR 67.24 BUN/Creatinine Ratio 26.8 H (10-20) Glucose 163 H (70-99(Fasting)) mg/dl Calcium 10.1 (8.6-10.3) mg/dl Magnesium 1.5 L (1.7-2.4) mg/dl Total Bilirubin 0.5 (0.2-1.0) mg/dl AST 21 (13-39) U/L ALT 20 (7-52) U/L Alkaline Phosphatase 140 H (34-104) U/L Troponin I High Sens 55.3 H* 57.8 H* (0-20) pg/ml B-Natriuretic Peptide 299 H (0-100) pg/ml Total Protein 7.1 (6.0-8.3) gm/dl Albumin 4.1 (3.4-5.0) gm/dl Globulin 3.0 (2.5-4.0) gm/dl Albumin/Globulin Ratio 1.4 (0.9-2) Lipase 25 (11-82) U/L Administered Medications Discontinued Medications Fentanyl Citrate (Fentanyl Citrate Pf 100 Mcg/2 Ml Vial) 50 mcg IV NOW STA Stop: 04/16/24 05:02 Last Admin: 04/16/24 05:24 Dose: 50 mcg Documented By: CHARLIE Imaging Data Radiologist's Impression: Chest X-Ray 04/16/24 03:19 EXAM: XR chest 1V portable CLINICAL HISTORY: CHEST PAIN. TECHNIQUE: X-ray images of the chest were obtained in the frontal projection. COMPARISON: CR: 09/12/2023. FINDINGS: Pulmonary Parenchyma: No evidence of consolidation, collapse, or focal opacities. No pulmonary nodules were identified. No evidence of pleural effusion or pleural thickening. Heart and Mediastinum: Still noted cardiomegaly with suspected size increase of the right cardiac border (could be positional). No hilar or mediastinal lymphadenopathy. Still noted bilateral prominent hilar vascular shadows Bony Thorax: The bony thorax appears intact without fractures or deformities. IMPRESSION: 1. Still noted cardiomegaly with suspected size increase of the right cardiac border. 2. Still noted bilateral prominent hilar vascular shadows; likely secondary to congestion. 3. Clinical correlation and follow-up are recommended. 4. No consolidation or cavitation seen. Electronically signed by Scott Jolly 04-16-2024 04:51 AM Discharge Plan Visit Data Chief Complaint: Chest Pain Stated Complaint: chest pain ED Provider: Nitza Dickerson Discharge Problem: Substernal chest pain, Elevated troponin Patient Disposition: Admitted As Inpatient Discharge Instructions Interventions: ED Discharge Assessment Last Done: 04/16/24 05:54
[2024-04-16] MEDS: fentaNYL citrate PF 100 MCG/2 ML VIAL IV STA (05:24)
[2024-04-16] MEDS ORDERED: ALBUTEROL HFA 8 GM INHALER INH PRN (06:09)
[2024-04-16] MEDS ORDERED: DEXTROSE 50% 50 ML SYRINGE IV PRN (06:09)
[2024-04-16] MEDS ORDERED: POLYETHYLENE (MIRALAX) 17 GM PACK PO PRN (06:09)
[2024-04-16] MEDS ORDERED: GLUCOSE 40% GEL 15 GM TUBE PO PRN (06:09)
[2024-04-16] MEDS ORDERED: GLUCAGON FOR INJ 1 MG VIAL SQ PRN (06:09)
[2024-04-16] MEDS ORDERED: ONDANSETRON INJ 2 MG/ML 2 ML VIAL IV PRN (06:09)
[2024-04-16] MEDS ORDERED: CARBOHYDRATES FOR HYPOGLYCEMIA PO PRN (06:09)
[2024-04-16] MEDS ORDERED: GLUCOSE 10 TAB/TUBE PO PRN (06:09)
[2024-04-16 06:57] LABS: Magnesium 1.5 mg/dl (1.7-2.4)
[2024-04-16] MEDS: APIXABAN 5 MG TABLET PO SCH (08:13)
[2024-04-16] MEDS: PRAVASTATIN SOD 20 MG TAB PO SCH (08:13)
[2024-04-16] MEDS: INSULIN ASPART PER UNIT CHARGE SC SCH (08:14)
--- NOTE | 2024-04-16 10:33 | Cardiology Consultation ---
Date of Consultation April 16, 2024 Assessment & Plan (1) Substernal chest pain: 2. Minimally elevated troponin 3. Lower extremity painsuspect neuropathy/radiculopathy 4. Type 2 diabetes with neuropathy 5. Paroxysmal AFon Eliquis 6. Hypertension 7. Dyslipidemia 8. GERD 9. CVIpost prior venous ablation Here with prolonged episode of chest pain with minimally elevated troponin. Currently chest pain-free, hemodynamically stable. Electrically stable other than frequent PVCs (chronic). With ASCVD risk factors some suspicion for ACS and recommend further evaluation with cardiac catheterization Other patient concern is for bilateral left greater than right exertional leg pain Recent venous duplex negative for DVT. Prior arterial duplex 2 years ago without significant stenosis On exam today intact 2+ popliteal, pedal pulses on left. Suspect leg pain nonvascular but will confirm with either repeat arterial duplex or angiogram at time of cath. Plan on [facility] via right radial artery later today Please keep n.p.o. until procedure Further recommendations pending findings of coronary angiography. History of Present Illness Attending Physician: Moody Patel, History of Present Illness Mr. Harden is a very pleasant 78-year-old man with a history of paroxysmal atrial fibrillation on anticoagulation, frequent PVCs type 2 diabetes, hypertension, dyslipidemia admitted with chest pain and mildly elevated HS TropI. Other medical problems include chronic venous insufficiency post prior vein stripping and right AASV VenaSeal/Varithena 2019. Also with obesity/JOSEFINA, gout, asthma, GERD, anemia. Has been dealing with bilateral left greater than right lower extremity pain for weeks. Seen in the ED earlier this month and had venous duplex which was negative for DVT. Describes whole leg pain worse in the calf area with walking. Pain relieved with lying down. No significant pain at rest. Denies lower extremity swelling. No lower extremity ulcers. Had left leg arterial duplex in 2021 which showed no high-grade stenosis and multiphasic waveforms throughout. Yesterday after eating dinner developed substernal chest discomfort/burning which he thought was indigestion. Has had similar symptoms in the past but yesterday symptoms were unique and that persisted for hours. Continued to have symptoms until this morning, chest pain-free currently. Denies any palpitations, presyncope, worsening shortness of breath. No new lower extreme edema. ECG showed rate controlled atrial fibrillation with frequent PVCs, no ST abnormalities. HS TropI minimally elevated to the 50s. BNP 290. Hospitalized 08/2023 with atrial fibrillation with RVR and HS TropI at 150, thought secondary to demand. Echo at that time showed EF 50% with abnormal septal motion consistent with conduction abnormality. Had mild MR and mild pulmonary hypertension with estimated PASP in 40s. Family history: Brother has multiple stents (family medicine physician in [place]) Social history: for 53 years. Previously served in the [employer]. 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 Remote tobacco use. Allergies Allergy/AdvReac Type Severity Reaction Status Date / Time mold Allergy Intermediate respiratory Verified 04/11/24 14:29 problems atorvastatin AdvReac Intermediate Muscle Verified 04/11/24 14:29 soreness rosuvastatin AdvReac Intermediate Muscle Verified 04/11/24 14:29 soreness simvastatin AdvReac Intermediate Muscle Verified 04/11/24 14:29 soreness Home Medications Medication Instructions Recorded Confirmed Type cinnamon bark 500 mg capsule 500 mg PO BID 01/15/19 04/11/24 History (Cinnamon) mecobalamin (vitamin B12) 1,000 1,000 mcg sublingual BID 02/26/19 04/11/24 History mcg disintegrating tablet,sublingual OneTouch Delica Lancets 33 gauge #400 ea 01/11/20 04/11/24 Rx (lancets) blood sugar diagnostic (OneTouch #50 ea 11/13/21 04/11/24 Rx Verio test strips) albuterol sulfate 90 mcg/actuation 1 inh inhalation QID PRN shortness 03/13/22 04/11/24 Rx aerosol inhaler of breath or wheezing #6.7 grams ascorbic acid (vitamin C) 500 mg 250 mg PO QAM 03/13/22 04/11/24 History tablet (Vitamin C) cholecalciferol (vitamin D3) 50 50 mcg PO QAM 03/13/22 04/11/24 History mcg (2,000 unit) capsule (Vitamin D3) ferrous sulfate 325 mg (65 mg 325 mg PO QAM 03/13/22 04/11/24 History iron) tablet omega-3 fatty acids 1,000 mg 1,000 mg PO BID 03/13/22 04/11/24 History capsule fluticasone 500 mcg-salmeterol 50 1 inh inhalation BID 06/03/22 04/11/24 History mcg/dose blistr powdr for inhalation (Wixela Inhub) allopurinol 300 mg tablet 300 mg PO BID #180 tabs 02/23/23 04/11/24 History tamsulosin 0.4 mg capsule 0.4 mg PO BID #180 caps 03/22/23 04/11/24 Rx potassium chloride 10 mEq 10 meq PO QAM 08/03/23 04/11/24 History capsule,extended release semaglutide 1 mg/dose (4 mg/3 mL) 1 mg subcut WK 08/03/23 04/11/24 History subcutaneous pen injector (Ozempic) magnesium oxide 420 mg tablet 420 mg PO QAM 08/18/23 04/11/24 History metoprolol tartrate 50 mg tablet 50 mg PO BID hypertension #180 09/12/23 04/11/24 Rx tabs lisinopril 20 mg tablet 20 mg PO QAM 10/12/23 04/11/24 History omeprazole 20 mg capsule,delayed 20 mg PO QAM 10/12/23 04/11/24 History release pravastatin 20 mg tablet 20 mg PO QAM 10/12/23 04/11/24 History apixaban 5 mg tablet (Eliquis) 5 mg PO BID #60 tabs 11/07/23 04/11/24 Rx vitamin b12 PO DAILY 11/07/23 04/11/24 History dutasteride 0.5 mg capsule 0.5 mg PO DAILY 11/11/23 04/11/24 History furosemide 40 mg tablet 40 mg PO QAM #90 tabs 01/18/24 04/11/24 Rx methylprednisolone 4 mg tablets in See Rx Instructions .Route 04/11/24 04/11/24 Rx a dose pack (Medrol (Juan)) .COMPLEX #21 ea Patient History Medical History Hyperlipidemia Hypertension Arteriosclerosis of carotid artery Hx of gout GERD (gastroesophageal reflux disease) Hiatal hernia Sleep apnea Chronic venous insufficiency BPH (benign prostatic hyperplasia) Barretts esophagus Chronic anemia Aortic stenosis History of skin cancer Atrial fibrillation Asthma Pulmonary hypertension 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 History of colon polyps History of stomach ulcers Surgical History History of Mohs micrographic surgery for skin cancer H/O left cataract extraction History of right cataract surgery History of biopsy H/O vascular surgery History of carpal tunnel release of both wrists History of prostate biopsy History of colonoscopy with polypectomy History of esophagogastroduodenoscopy (EGD) History of tooth extraction History of wisdom tooth extraction History of tonsillectomy S/P cholecystectomy S/P cardiac cath Family History Father Myocardial infarction Mother Family history of diabetes mellitus Brother Family history of diabetes mellitus Other No family history of adverse response to anesthesia Denies family history of Ovarian cancer Prostate cancer Coronary heart disease Breast cancer Colorectal cancer Social History Smoking Status: Former smoker Tobacco Type: Cigarettes Age Started Using Tobacco: 11; Age Quit Using Tobacco: 42; packs per day: 1; Cigarettes Per Day: Quit 30+yrs ago; Second Hand Exposure: No; Do You Dip or Chew Tobacco: No; Hx Alcohol Use: No Hx Substance Use: No Preferred Language: Croatian Communication Ability: Effective Visual Impairment: No Limitations Hearing Ability: Normal Supply Chain Associate Required: No Beliefs That Will Affect Care: None marital status: Current Living Situation: Spouse current occupational status: retired 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[place] [facility] Other Information That Helps Us Care for You: No Feels Safe at Home: Yes Safety Concerns: Feels Safe At This Time Childhood Exposure to Second-Hand Smoke: No Diet: regular caffeine: Yes during the past year weight has: remained stable Dental Care, Regularly: Yes Physical Activity Frequency: Does not Exercise Seatbelt Use: always Sunscreen Use: Yes Assistive Devices: Cane Review of Systems Review of Systems: All systems reviewed & are unremarkable except as noted in HPI & below Physical Exam Physical Exam: General: Comfortable HEENT: Sclerae anicteric Lungs: Clear to auscultation bilaterally, no crackles or wheezes Cardiac: Regular with occasional premature beats, 2/6 systolic ejection murmur heard best at left upper sternal border, 2 out of 6 holosystolic at apex Vascular: 2+ radial bilaterally 2+ femoral bilaterally 2+ left popliteal, 1+ right popliteal 2+ PT, 1+ DP on left, 1+ PT/DP on right Normal capillary refill Diffuse below the knee varicose veins, telangiectasias,reticular veins Abdomen: Soft, nontender Extremities: Well perfused, no peripheral edema Neuro: Nonfocal Psych: Alert orient x3, decreased sensation to light touch in feet bilaterally Results & Data Vital Signs (Past 12 Hours) Vital Signs Temp Pulse Pulse Resp BP BP Pulse Ox 04/16/24 07:10 97.7 F 53 L 19 115/72 95 04/16/24 06:30 97.7 F 66 20 149/75 H 96 04/16/24 05:53 65 16 114/79 97 04/16/24 05:33 60 04/16/24 05:30 65 16 122/61 95 04/16/24 04:30 64 18 111/57 L 95 04/16/24 04:00 64 16 114/61 96 04/16/24 03:40 71 04/16/24 03:31 64 16 122/61 96 04/16/24 03:19 70 04/16/24 03:19 98 04/16/24 03:17 98.2 F 70 20 132/70 97 O2 Del Method 04/16/24 07:10 Room Air 04/16/24 06:30 Room Air 04/16/24 05:53 Room Air 04/16/24 05:33 04/16/24 05:30 Room Air 04/16/24 04:30 Room Air 04/16/24 04:00 Room Air 04/16/24 03:40 04/16/24 03:31 Room Air 04/16/24 03:19 04/16/24 03:19 Room Air 04/16/24 03:17 Room Air PG Care Time/CCT Total # of Minutes Spent Total Time Spent with Patient: Total time spent is greater than 50% in coordination of care (as documented) at patient's floor/unit and/or counseling patient: Coding Level of Care Code 44524 INT INP/OBS CARE 2/55MIN Diagnoses Substernal chest pain R07.2
--- NOTE | 2024-04-16 10:48 | Hospitalist Progress Note ---
Date of Service April 16, 2024 Assessment & Plan (1) Chest pain: Plan: -Patient with substernal chest pain that started at approximately 5 PM on 04/15. Has been relatively consistent since getting to the ED. -Given aspirin on the way to the hospital. Unable to give nitro due to blood pressure. -CBC benign though did show a leukocytosis. Most likely secondary to prednisone use. -CMP showed elevated alkaline phosphatase which is chronic. -BNP of 299. -Chest x-ray showed cardiomegaly with bilateral pulmonary hilar vascular shadows. -Troponin of 55 in the ED, repeat 2-hour of 57 at time of admission. Will continue trending troponin every 6 hours. -EKG shows first-degree AV block and PVCs. Normal sinus rhythm. No ST elevation or depression. No signs of ischemia. -Cardiac Catheterization performed today. Asp Net C Developer consultation is pending. (2) Peripheral arterial disease: Plan: -Patient with peripheral artery disease that is currently being worked up. Had a recent venous duplex ultrasound which was negative. -Is supposed to have arterial duplex lower extremities done on Tuesday. If prolonged stay may consider doing this inpatient. -Patient was recently prescribed a Medrol Dosepak. Patient felt little benefit with steroids. Will DC them at this time and refer to cardiology/vascular. - PT OT consultation was done. Will continue him on Acute Physical Therapy while at hospital and increase it as tolerable. (3) Hyperlipidemia: Plan: -Continue home pravastatin. (4) Sleep apnea: Plan: -CPAP at night. (5) Hypertension: Plan: -Will hold patient's lisinopril, metoprolol, and furosemide at time of admission due to issues with low blood pressure and not being able to give nitro. -Should restart once chest pain rule out (6) Asthma: Plan: -Continue albuterol inhaler as needed. (7) Atrial fibrillation: Plan: -Patient with a history of atrial fibrillation status post cardioversion. On Eliquis. Will continue at time of admission. 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 Code status: Full code DVT ppx: Eliquis Consults: Cardiology PT/OT: Ordered Dispo: PCU/telemetry Admission and Anticipated Discharge Date Admission Date: April 16, 2024 Supervising Physician Co-Signing Physician Notes I personally examined the patient and verified all espino points of history and exam, discussed case, and agree with decision making with Dr Littlejohn Feeling good post cath. No new complaints. Did have some left leg pain but that feels better right now 2. Vitals noted, in general he is awake and alert pleasant no distress. HEENT normocephalic atraumatic mucous membranes moist. Breathing unlabored no accessory muscle use good effort. Skin without rashes pallor or icterus. Left lower extremity without calf tenderness, does have numerous varicosities but they are soft there are no cords they are nontender. He has good capillary refill in his toes. Anginanow resolved. Status post cath. Continue current management. Continue to follow Subjective Patient feels well overall. He was sitting comfortably in bed. No more fever spikes. Not coughing anymore. Denies any chest pain or shortness of breath. Review of Systems Review of Systems: All systems reviewed & are unremarkable except as noted in Subjective Physical Exam Physical Exam: Constitutional: well-appearing, no acute distress HEENT: NCAT, no conjunctival injection CV: regular rhythm, systolic murmur, extremities well-perfused, bilateral lower extremity varicosities, no lower extremity edema Resp: CTABL, no wheezes/rales/rhonchi appreciated, no increased work of breathing GI: soft, nondistended, nontender, BS normoactive MSK: no gross deformities appreciated Skin: warm, dry, no rash appreciated Neuro: alert, oriented, no focal neurologic deficit appreciated Results & Data Results & Data Vital Signs (Past 12 Hours) Vital Signs Temp Pulse Pulse Resp BP BP Pulse Ox 04/16/24 07:10 36.5 C 53 L 19 115/72 95 04/16/24 06:30 36.5 C 66 20 149/75 H 96 04/16/24 05:53 65 16 114/79 97 04/16/24 05:33 60 04/16/24 05:30 65 16 122/61 95 04/16/24 04:30 64 18 111/57 L 95 04/16/24 04:00 64 16 114/61 96 04/16/24 03:40 71 04/16/24 03:31 64 16 122/61 96 12/16/24 03:19 70 04/16/24 03:19 98 04/16/24 03:17 36.8 C 70 20 132/70 97 O2 Del Method 04/16/24 07:10 Room Air 04/16/24 06:30 Room Air 04/16/24 05:53 Room Air 04/16/24 05:33 04/16/24 05:30 Room Air 04/16/24 04:30 Room Air 04/16/24 04:00 Room Air 04/16/24 03:40 04/16/24 03:31 Room Air 04/16/24 03:19 04/16/24 03:19 Room Air 04/16/24 03:17 Room Air (5) Hypertension Hypertension type: primary hypertension Qualified Code(s): I10 - Essential (primary) hypertension
[2024-04-16] MEDS: MAGNESIUM SULFATE / D5W 1 GM/100 ML BAG IV SCH (11:54)
--- NOTE | 2024-04-16 13:47 | Hospitalist Progress Note ---
Date of Service April 16, 2024 Assessment & Plan Admission and Anticipated Discharge Date Admission Date: April 16, 2024 Results & Data Results & Data Vital Signs (Past 12 Hours) Vital Signs Temp Pulse Pulse Resp BP BP Pulse Ox 04/16/24 11:50 36.6 C 66 18 124/68 94 04/16/24 07:10 36.5 C 53 L 19 115/72 95 04/16/24 06:30 36.5 C 66 20 149/75 H 96 04/16/24 05:53 65 16 114/79 97 04/16/24 05:33 60 04/16/24 05:30 65 16 122/61 95 04/16/24 04:30 64 18 111/57 L 95 04/16/24 04:00 64 16 114/61 96 04/16/24 03:40 71 04/16/24 03:31 64 16 122/61 96 04/16/24 03:19 70 04/16/24 03:19 98 04/16/24 03:17 36.8 C 70 20 132/70 97 O2 Del Method 04/16/24 11:50 Room Air 04/16/24 07:10 Room Air 04/16/24 06:30 Room Air 04/16/24 05:53 Room Air 04/16/24 05:33 04/16/24 05:30 Room Air 04/16/24 04:30 Room Air 04/16/24 04:00 Room Air 04/16/24 03:40 04/16/24 03:31 Room Air 04/16/24 03:19 04/16/24 03:19 Room Air 04/16/24 03:17 Room Air
[2024-04-16] MEDS: NITROGLYCERIN SL 0.4 MG/TAB TAB SL PRN (14:58)
--- NOTE | 2024-04-16 16:41 | Pre Anesthesia Assessment ---
Date of Service April 16, 2024 Pre Sedation Assessment Vital Signs Temp Pulse Pulse Resp BP BP BP 04/16/24 15:40 120/63 04/16/24 15:39 98.1 F 83 19 85/56 L 04/16/24 15:37 76 18 04/16/24 15:10 76/47 L 04/16/24 11:50 97.9 F 66 18 124/68 04/16/24 07:10 97.7 F 53 L 19 115/72 04/16/24 06:30 97.7 F 66 20 149/75 H 04/16/24 05:53 65 16 114/79 04/16/24 05:33 60 04/16/24 05:30 65 16 122/61 04/16/24 04:30 64 18 111/57 L 04/16/24 04:00 64 16 114/61 04/16/24 03:40 71 04/16/24 03:31 64 16 122/61 04/16/24 03:19 70 04/16/24 03:19 04/16/24 03:17 98.2 F 70 20 132/70 Pulse Ox O2 Del Method 04/16/24 15:40 04/16/24 15:39 94 Room Air 04/16/24 15:37 95 Room Air 04/16/24 15:10 04/16/24 11:50 94 Room Air 04/16/24 07:10 95 Room Air 04/16/24 06:30 96 Room Air 04/16/24 05:53 97 Room Air 04/16/24 05:33 04/16/24 05:30 95 Room Air 04/16/24 04:30 95 Room Air 04/16/24 04:00 96 Room Air 04/16/24 03:40 04/16/24 03:31 96 Room Air 04/16/24 03:19 04/16/24 03:19 98 Room Air 04/16/24 03:17 97 Room Air Cardiovascular + regular rate Respiratory + respiratory effort normal Pre-Sedation Airway Assessment Smoking Status: Former smoker Hx Sleep Apnea: No Hx Difficult Intubation: No Short, Thick Neck: Yes Thyromental Distance: < 3.5 Finger Breadths Oral Cavity: + Dentures Mallampati Class: III ASA: ASA3 NPO Status Date of Last Intake of Solid Food: 04/15/24 Time of Last Intake of Solid Foods: 22:00 Procedure Planning Contraindications for Sedation: none Current Medications Reviewed: Yes Notes The planned sedation has been discussed with the patient. Informed Consent was obtained. I have identified the patient, determined the appropriateness of sedation and have assessed the patient immediately prior to the procedure. All medicine(s) and interventions are by my order.
[2024-04-16] MEDS: MIDAZOLAM HCL 1 MG/ML 2ML VIAL ONE ×2 (17:15→17:57)
[2024-04-16] MEDS: niCARdipine 2,000 MCG/20 ML SYR ONE (17:16)
[2024-04-16] MEDS: NITROGLYCERIN/D5W 100MCG/ML 20ML SYR ONE (17:17)
[2024-04-16] MEDS: fentaNYL citrate PF 100 MCG/2 ML VIAL ONE ×2 (17:17→17:58)
[2024-04-16] MEDS: IODIXANOL (VISIPAQUE) 320 MG/ML 100ML IV ONE (17:17)
[2024-04-16] MEDS: HEPARIN (PORCINE) 1000 UNIT/ML 10 ML (CATH LAB USE ONLY) ONE (17:57)
[2024-04-16] MEDS: CLOPIDOGREL BISULFATE 300 MG TAB ONE (17:58)
[2024-04-16] MEDS: OPTIRAY 350 ONE (18:02)
[2024-04-16] MEDS: ACETAMINOPHEN 325 MG TAB PO PRN (18:49)
--- NOTE | 2024-04-16 20:24 | Billing Data ---
Date of Service April 16, 2024 Coding Level of Care Code 15572 SUB INP/OBS CARE
--- NOTE | 2024-04-16 22:29 | Post Anesthesia Assessment ---
Date of Service April 16, 2024 Post Sedation Assessment Vital Signs Temp Pulse Pulse Resp BP BP BP 04/16/24 21:47 63 18 129/65 04/16/24 21:10 66 18 113/63 04/16/24 20:39 63 18 99/62 L 04/16/24 20:00 64 20 96/58 L 04/16/24 18:45 64 20 138/78 04/16/24 18:35 68 20 129/73 04/16/24 18:19 98.2 F 65 18 116/68 04/16/24 15:40 120/63 04/16/24 15:39 98.1 F 83 19 85/56 L 04/16/24 15:37 76 18 04/16/24 15:10 76/47 L 04/16/24 11:50 97.9 F 66 18 124/68 04/16/24 07:10 97.7 F 53 L 19 115/72 04/16/24 06:30 97.7 F 66 20 149/75 H 04/16/24 05:53 65 16 114/79 04/16/24 05:33 60 04/16/24 05:30 65 16 122/61 04/16/24 04:30 64 18 111/57 L 04/16/24 04:00 64 16 114/61 04/16/24 03:40 71 04/16/24 03:31 64 16 122/61 04/16/24 03:19 70 04/16/24 03:19 04/16/24 03:17 98.2 F 70 20 132/70 Pulse Ox O2 Del Method 04/16/24 21:47 98 Room Air 04/16/24 21:10 98 Room Air 04/16/24 20:39 98 Room Air 04/16/24 20:00 96 Room Air 04/16/24 18:45 93 Room Air 04/16/24 18:35 95 Room Air 04/16/24 18:19 95 Room Air 04/16/24 15:40 04/16/24 15:39 94 Room Air 04/16/24 15:37 95 Room Air 04/16/24 15:10 04/16/24 11:50 94 Room Air 04/16/24 07:10 95 Room Air 04/16/24 06:30 96 Room Air 04/16/24 05:53 97 Room Air 04/16/24 05:33 04/16/24 05:30 95 Room Air 04/16/24 04:30 95 Room Air 04/16/24 04:00 96 Room Air 04/16/24 03:40 04/16/24 03:31 96 Room Air 04/16/24 03:19 04/16/24 03:19 98 Room Air 04/16/24 03:17 97 Room Air Recovery Score Activity: Moves 4 extremities Respiration: Deep Breath/Cough Circulation: +/-20% PreAnes Value Consciousness: Fully Awake Oxygen Saturation: O2 needed for >90% Discharge Sedation Level of Care: Fast Track Phase II Post Sedation Plan On clinical assessment, the patient appears to have tolerated the sedation without complications. Patient is recovering as anticipated. Patient will continue to be monitored by nursing and may be discharged when sedation discharge criteria are met per below protocol. Upon Completions of procedure up to 15 minutes continue every 5 minute vital signs and the P.A.R. score; then discharge to a Phase I or Fast Track to Phase II per the following guidelines: * Discharge Patient to appropriate Phase II area if PAR is 8 or greater or return to pre- procedure baseline. The post - procedure orders will be as directed. * If PAR score is less than 8 or not return to pre-procedure baseline then patient will follow Phase I monitoring till PAR is reached for Phase II. The Phase I may be done in procedure room or may call to secure a Phase I area. * If naloxone or flumazenil are used for reversal, hold in Phase I for continued monitoring from when last reversal dose was given for a minimum of 60 minutes or longer pending the nurse and/or physician discretion of patient condition before discharge to Phase II. Please call the Sedation Physician to re-evaluate and complete post-note for discharge to Phase II area. Do NOT discharge from procedure sedation or Phase 1 until post- sedation evaluation note is complete by procedure /sedation MD Sedation Discharge Instructions to be given to the patient at discharge to home.
--- NOTE | 2024-04-16 22:33 | Cardiac Catheterization ---
[facility] Data: Trimming Operator Cardiac Status Clinical evaluation leading to the procedure CAD Presenation: Non STEMI Anginal Classification: CCS IV Diagnostic Physicians Name: Grady Kumar MD Closure Device Recommendations: PCI without planned CABG Cardiac Cath Procedure Full Procedure Date April 16, 2024 Pre-Procedure Diagnosis Pre-Procedure Diagnosis: Non STEMI AUC Score AUC Score: 7 Post-Procedure Diagnosis Post-Procedure Diagnosis: Severe CAD, Successful PCI and Normal Intracardiac Pressures Procedure(s) Performed Procedure(s) Performed: Coronary Angiography, Left Heart Cath, Drug Eluting Stent, IVUS, Fractional Flow [place] and Procedure (Abdominal aortography, LT lower extremity angiography) Drop Board Worker Grady Kumar MD Degree Clerk(s) Irene Estimated Blood Loss Estimated Blood Loss: 25 Medication(s) Medication(s): Clopidogrel, Fentanyl, Heparin, Lidocaine 1%, Nicardipine, Nitroglycerin and Versed Summary of Findings Indication: 6 Fr slender right radial artery Access: 6 Fr slender right radial artery Catheters: [place], EBU 3.5 guide Findings: LM -large caliber, no significant disease LAD -medium caliber, calcified, 70 to 80% ostial stenosis. 40-50% mid segment stenosis. Distal vessel wraps around apex with moderate diffuse distal disease. D2 without significant disease. Circumflex -dominant, large caliber, proximal/mid vessel without disease. Small distal vessel into small LPDA with moderate diffuse disease. Large OM trifurcates, small inferior branch with 60% mid segment stenosis. Small PDA without disease. RCA -small, nondominant RCA without significant disease. LVEDP -4 IFR/IVUS of LAD Left main cannulated with EBU 3.5 guide Omniwire placed into latemid LAD IFR 0.80 Omniwire directed into circumflex [place] blue wire directed into distal LAD [place] IVUS catheter placed to mid LAD IVUS pullback revealed mild to moderate diffuse disease in LAD mid segment. Proximal LAD with calcified, severe disease extending back to ostium. Left main calcified, no significant obstructive disease Decision to proceed with PCI -- PCI -- Antithrombotic therapy: Heparin, clopidogrel Procedure: Pre-procedure flow MARTÍNEZ 3 Proximal LAD lesion predilated with 3.0 compliant balloon. Only partial expa nsion with initial balloon inflations. Ostial LAD further dilated with 3.0 shockwave balloon (30 pulses) Dilated lesion stented with 3.0 x 18 mm Xience drug-eluting stent extending to the ostium Stent post-dilated with 3.5 noncompliant balloon Repeat IVUS showed well-expanded, well apposed stent extending just into distal left main IC vasodilators administered for spasm Post procedure MARTÍNEZ 3 flow, stent well expanded with minimal residual stenosis and no apparent cardiac complications. Left lower extremity angiography Abdominal angiogram via pigtail [place] advantage wire navigated into SFA Angiography via long seeker catheter in proximal SFA Left leg findings: Iliacs widely patent. INTERPRETER calcified but patent. SFA with diffuse, severe nodular calcific disease up to 90% in mid segment. Popliteal calcified but patent. GRAYSON/QUALITY CONTROL INSPECTOR HEADING/peroneal patent proximally. Arterial Closure: TR band Summary: 1. Severe single vessel coronary artery disease -70-80% ostial LAD (IFR 0.80), 40-50% mid LAD Small branch vessel disease, inferior branch of OM 60% stenosis, small LPDA with moderate diffuse disease. 2. Normal intracardiac filling pressure 3. Successful PCI of ostial to proximal LAD with intravascular lithotripsy and single drug-eluting stent (3.0 x 18 mm Xience; postdilated with 3.5 NC). 4. Diffuse, severely calcified left SFA disease up to 90% in mid segment. Widely patent iliacs and proximal infrapopliteal arteries. Recommendations: To PCU for continued monitoring Loaded with clopidogrel 600 mg in Trimming Operator Continue dual-antiplatelet therapy for at least 1 year Continue statin, and ASCVD risk factor modification Consult cardiac Rehab Chronic left SFA disease would not explain patient's recent rest pain. Repeat JOE/TBI as an outpatient. Left SFA endovascular intervention could be considered for claudication. Venous reflux ultrasound as an outpatient to evaluate for venous disease contributing to muscle cramping. Hemodynamics Rest Ao:: 99/60/78 Final Ao: 121/50/80 LV: 121/5 Recommendations Recommendations: PCI without planned CABG Radiation Exposure (mGy) 4412 Contrast (mls) 145 Anesthesia Moderate [id number] Procedural Complication(s) None Disposition PCU I attest to the content of the Intraoperative Record and any orders documented therein. Any exceptions are noted below. [facility] Card Cath Procedure Codes Cardiac Catheterization Procedure 1: Cardiovascular Cath Procedures: 81336 Coronaries & LHC (+/-LV) & RHC Procedure 2: Cardiovascular Cath Procedures: 05415 (Doppler) Pressure Wire Therapeutic Services & Ancillary Procedure 1: Cardiovascular Tx and Anc Procedures: 92565 IV Ultrasound (Coronary or Graft) Moderate Sedation Procedure 1: Sedation/Anesthesia: 58392 Mod Sedation by the same physician;Init15 Min Child Age 5 & Up Procedure 2: Sedation/Anesthesia: 52875 Mod Sedation by the same physician; Ea [id number] Minutes Stenting Procedure 1: Cardiovascular Stent Procedures: 11731 Perc transcatheter placement of intracoronary stent(s), with ang Vascular Charges Angiography/Venography Procedure 1: Angiography/Venography charges: [id number] Aortography, abdominal, by serialog laura, radiological S&I Procedure 2: Angiography/Venography charges: [id number] Initial 3rd order or selective abd, pelvic, or LE branch PG Care Time/CCT Total # of Minutes Spent Total Time Spent with Patient: Total time spent is greater than 50% in coordination of care (as documented) at patient's floor/unit and/or counseling patient:
--- NOTE | 2024-04-16 23:00 | Communication Note ---
Date of Service: April 16, 2024 Patient having multiple runs of V. tach status post cardiac catheterization. Having runs of V. tach of 13 beats and [address] Kumar who states to resume his metoprolol and to give him a dose at this time. Magnesium and BMP were also ordered. Magnesium of 1.7. Will start on IV magnesium x 2.
[2024-04-16 23:44] LABS: BUN Creatinine Ratio 26.6 (10-20); Calcium 9.5 mg/dl (8.6-10.3); Creatinine Clr Calc Pharmacy 68.9 ml/min; Magnesium 1.7 mg/dl (1.7-2.4); Potassium 4.2 mmol/L (3.5-5.1)
[2024-04-16] MEDS: METOPROLOL TARTRATE 50 MG TAB PO SCH (23:54)
[2024-04-17] MEDS: MAGNESIUM SULFATE / D5W 1 GM/100 ML BAG IV SCH (00:11)
[2024-04-17 07:50] LABS: Albumin Globulin Ratio 1.3 (0.9-2); Albumin Level 3.7 gm/dl (3.4-5.0); Bilirubin,Total 0.8 mg/dl (0.2-1.0); Calcium 9.5 mg/dl (8.6-10.3); Creatinine Clr Calc Pharmacy 75.5 ml/min; Globulin 2.9 gm/dl (2.5-4.0); Potassium 4.3 mmol/L (3.5-5.1); Total Protein 6.6 gm/dl (6.0-8.3)
[2024-04-17] MEDS: CLOPIDOGREL BISULFATE 75 MG TAB PO SCH (07:58)
[2024-04-17 08:17] VITALS: RESP 19
[2024-04-17 09:07] LABS: Basophils # (auto) 0.03 K/uL (0.00-0.20); Basophils % (auto) 0.3 %; Eosinophils # (auto) 0.31 K/uL (0.00-0.50); Eosinophils % (auto) 2.7 %; Hematocrit (blood only) 34.1 % (42.0-52.0); Hemoglobin 11.9 g/dl (14.0-18.0); Immature Granulocytes # (auto) 0.08 K/uL (0.01-0.20); Immature Granulocytes % (auto) 0.7 %; Lymphocytes % (auto) 24.3 %; Mean Corpuscular Hemoglobin 33.1 pg (25.0-34.0); Mean Corpuscular Hgb Conc 34.9 g/dL (32.0-36.0); Mean Corpuscular Volume 94.7 fL (80.0-100.0); Mean Platelet Volume 10.1 fL (9.4-12.4); Monocytes # (auto) 1.02 K/uL (0.11-0.59); Monocytes % (auto) 8.9 %; Neutrophils # (auto) 7.28 K/uL (1.40-6.50); Neutrophils % (auto) 63.1 %; Platelet Count 193 K/uL (130-400); RDW Coefficient of Variation 15.7 % (11.5-14.5); RDW Standard Deviation 53.6 fL (36.4-46.3); White Blood Count 11.52 K/ul (4.8-10.8)
--- NOTE | 2024-04-17 10:27 | Hospitalist Progress Note ---
Date of Service April 17, 2024 Assessment & Plan (1) Chest pain: Plan: -Patient with substernal chest pain that started at approximately 5 PM on 04/15. Has been relatively consistent since getting to the ED. -Given aspirin on the way to the hospital. Unable to give nitro due to blood pressure. -CBC benign though did show a leukocytosis. Most likely secondary to prednisone use. -CMP showed elevated alkaline phosphatase which is chronic. -BNP of 299. -Chest x-ray showed cardiomegaly with bilateral pulmonary hilar vascular shadows. -Troponin of 55 in the ED, repeat 2-hour of 57 at time of admission. Will continue trending troponin every 6 hours. -EKG shows first-degree AV block and PVCs. Normal sinus rhythm. No ST elevation or depression. No signs of ischemia. -Cardiac Catheterization performed today. Wheel Truer consultation is pending. (2) Peripheral arterial disease: Plan: -Patient with peripheral artery disease that is currently being worked up. Had a recent venous duplex ultrasound which was negative. -Is supposed to have arterial duplex lower extremities done on Tuesday. If prolonged stay may consider doing this inpatient. -Patient was recently prescribed a Medrol Dosepak. Patient felt little benefit with steroids. Will DC them at this time and refer to cardiology/vascular. - PT OT consultation was done. Will continue him on Acute Physical Therapy while at hospital and increase it as tolerable. (3) Hyperlipidemia: Plan: -Continue home pravastatin. (4) Sleep apnea: Plan: -CPAP at night. (5) Hypertension: Plan: -Will hold patient's lisinopril, metoprolol, and furosemide at time of admission due to issues with low blood pressure and not being able to give nitro. -Should restart once chest pain rule out (6) Asthma: Plan: -Continue albuterol inhaler as needed. (7) Atrial fibrillation: Plan: -Patient with a history of atrial fibrillation status post cardioversion. On Eliquis. Will continue at time of admission. 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 Code status: Full code DVT ppx: Eliquis Consults: Cardiology PT/OT: Ordered Dispo: PCU/telemetry Admission and Anticipated Discharge Date Admission Date: April 16, 2024 Subjective Patient feels well overall. He was sitting comfortably in bed. No more fever spikes. Not coughing anymore. Denies any chest pain or shortness of breath. Physical Exam Physical Exam: Constitutional: well-appearing, no acute distress HEENT: NCAT, no conjunctival injection CV: regular rhythm, systolic murmur, extremities well-perfused, bilateral lower extremity varicosities, no lower extremity edema Resp: CTABL, no wheezes/rales/rhonchi appreciated, no increased work of breathing GI: soft, nondistended, nontender, BS normoactive MSK: no gross deformities appreciated Skin: warm, dry, no rash appreciated Neuro: alert, oriented, no focal neurologic deficit appreciated Results & Data Results & Data Vital Signs (Past 12 Hours) Vital Signs Temp Pulse Pulse Resp BP Pulse Ox Pulse Ox 04/17/24 08:16 36.7 C 70 19 100/63 98 04/17/24 06:09 95 04/17/24 03:14 36.5 C 64 18 127/76 99 04/17/24 00:35 70 17 98 04/16/24 23:14 36.7 C 74 18 138/78 94 O2 Del Method O2 Del Method O2 Flow Rate O2 Flow Rate 04/17/24 08:16 Room Air 04/17/24 06:09 Nasal Cannula 2 04/17/24 03:14 Room Air 04/17/24 00:35 2 04/16/24 23:14 Room Air (5) Hypertension Hypertension type: primary hypertension Qualified Code(s): I10 - Essential (primary) hypertension
[2024-04-17 10:56] VITALS: PULSE 61; TEMP 97.9; O2SAT 95
--- NOTE | 2024-04-17 11:16 | Cardiology Progress Note ---
Date of Service April 17, 2024 Assessment & Plan (1) CAD (coronary artery disease): Plan: Post PCI to ostial/proximal LAD with SOPHIE Residual small vessel disease in OM branch, left PDA 2. PAD90% chronic calcified left SFA 3. Lower extremity painsuspect neuropathy/radiculopathy, cramping may be related to CVI 4. Type 2 diabetes with neuropathysignificant weight loss on GLP-1 5. Paroxysmal AFon Eliquis 6. HypertensionBB, NITZA (at home) 7. Dyslipidemiaprior statin intolerance, tolerating pravastatin 8. GERD 9. CVIpost prior venous ablation 10. Frequent PVCs, NSVTBB restarted No recurrence of presenting chest pain. Hemodynamically stable. LV function unchanged on echo and no signs of heart failure on exam No apparent access site complications Reduced ventricular ectopy with magnesium, restarting beta-sharath. From a cardiac, vascular standpoint okay with discharge today Home on dual therapy with clopidogrel, Eliquis Continue metoprolol 50 mg twice daily. Can hold lisinopril and resume as outpatient as able Continue current statin Will arrange for cardiac rehab as an outpatient Chronic lower extremity PAD is not causing his rest leg pain. May have some contribution from venous insufficiency and muscle cramping Will obtain JOE/TBI and venous reflux ultrasound as an outpatient Encouraged compression stocking use and walking as able As an outpatient will discuss venous ablation options and or arterial stenting if more exertional symptoms. Admission and Anticipated Discharge Date Admission Date: April 16, 2024 Subjective Feeling okay this morning. Did not sleep well. Picked at chapped lips and has had bleeding from the side of his mouth this morning. Denies any chest pain today. Has felt occasional fluttering. Continues to have intermittent leg pain. Telemetry reviewedepisodes of NSVT last night, longest 13 beats. Magnesium supplemented and restarted on metoprolol. Brief episodes this morning, longest 5 beats. Review of Systems Review of Systems: All systems reviewed & are unremarkable except as noted in HPI & below Physical Exam Physical Exam: General: Comfortable HEENT: Sclerae anicteric Lungs: Clear to auscultation bilaterally, no crackles or wheezes Cardiac: Regular with occasional premature beats, 2/6 systolic ejection murmur heard best at left upper sternal border, 2 out of 6 holosystolic at apex Vascular: Right radial artery access site with no ecchymosis, hematoma. Distal pulse and sensation intact. Diffuse below the knee varicose veins, telangiectasias,reticular veins Abdomen: Soft, nontender Extremities: Well perfused, no peripheral edema Neuro: Nonfocal Psych: Alert orient x3, decreased sensation to light touch in feet bilaterally Results & Data Vital Signs (Past 12 Hours) Vital Signs Temp Pulse Pulse Resp BP Pulse Ox Pulse Ox 04/17/24 10:55 97.9 F 61 19 113/66 95 04/17/24 08:16 98.1 F 70 19 100/63 98 04/17/24 06:09 95 04/17/24 03:14 97.7 F 64 18 127/76 99 04/17/24 00:35 70 17 98 04/16/24 23:14 98.1 F 74 18 138/78 94 O2 Del Method O2 Del Method O2 Flow Rate O2 Flow Rate 04/17/24 10:55 Room Air 04/17/24 08:16 Room Air 04/17/24 06:09 Nasal Cannula 2 04/17/24 03:14 Room Air 04/17/24 00:35 2 04/16/24 23:14 Room Air PG Care Time/CCT Total # of Minutes Spent Total Time Spent with Patient: Total time spent is greater than 50% in coordination of care (as documented) at patient's floor/unit and/or counseling patient: Coding Level of Care Code 96725 SUB INP/OBS CARE 3/50MIN Diagnoses CAD (coronary artery disease) I25.10
[2024-04-17 12:04] VITALS: BP 85/56
--- NOTE | 2024-04-17 12:10 | Discharge Summary ---
Date of Service April 17, 2024 Admission HPI Per Admitting Provider Patient is a 78-year-old male with past medical history of type 2 diabetes, peripheral artery disease, atrial fibrillation, GERD, hypertension, hyperlipidemia, sleep apnea on CPAP, and history of GIST who presents to the hospital with chest pain that started at 1700 on 04/15. Patient was having substernal chest pain that started at 5 PM today. States that chest pain has been pretty consistent since starting. Patient denies any nausea, vomiting, cough, abdominal pain, fever, chills. Patient states that he had a recent been prescribed prednisone. He is on his fifth day of prednisone. Patient also states that his peripheral artery disease has been getting worse. States that his pain is pretty significant in his left leg. Patient had a duplex ultrasound bilaterally which were negative. He was scheduled to have a arterial scan done on Tuesday. States this is why he was prescribed prednisone. Admission Exam Per Admitting Provider Physical Exam Physical Exam: Constitutional: well-appearing, no acute distress HEENT: NCAT, no conjunctival injection CV: regular rhythm, systolic murmur, extremities well-perfused, bilateral lower extremity varicosities, no lower extremity edema Resp: CTABL, no wheezes/rales/rhonchi appreciated, no increased work of breathing GI: soft, nondistended, nontender, BS normoactive MSK: no gross deformities appreciated Skin: warm, dry, no rash appreciated Neuro: alert, oriented, no focal neurologic deficit appreciated Principal Diagnosis 1. Coronary Artery Disease status post stent for Single Vessel Atherosclerosis Discharge Exam Constitutional: well-appearing, no acute distress HEENT: NCAT, no conjunctival injection CV: regular rhythm, systolic murmur, extremities well-perfused, bilateral lower extremity varicosities, no lower extremity edema Resp: CTABL, no wheezes/rales/rhonchi appreciated, no increased work of breathing GI: soft, nondistended, nontender, BS normoactive MSK: Varicose vein seen in left leg Skin: warm, dry, no rash appreciated Neuro: alert, oriented, no focal neurologic deficit appreciated Discharge Data Allergies Allergy/AdvReac Type Severity Reaction Status Date / Time mold Allergy Intermediate respiratory Verified 04/11/24 14:29 problems atorvastatin AdvReac Intermediate Muscle Verified 04/11/24 14:29 soreness rosuvastatin AdvReac Intermediate Muscle Verified 04/11/24 14:29 soreness simvastatin AdvReac Intermediate Muscle Verified 04/11/24 14:29 soreness Consultations 04/16/24 05:01 ED Decision to Admit Stat 04/16/24 06:09 Consult Cardiology Routine Procedures Performed Operation Date: 04/16/24 13:00 Actual Procedures p Cath, Left with Cors and Vent - Grady Kumar MD p IVUS Coronary Single Vessel - Grady Kumar MD s Cineradiography w/Routine Exam - Grady Kumar MD p Drug Eluting Stent SGl Vessel - Grady Kumar MD p Angio Extremity Unilateral - Grady Kumar MD p SC Select Cath ALEP 3rd Order - Grady Kumar MD Ordered Studies 04/16/24 11:00 EP Lab Images for PACS ONCE 04/16/24 16:26 CL Cath Imgs for PACS use only Routine 04/16/24 18:19 CL IVUS Coronary Single Vessel Routine Hospital Course (1) Chest pain: (2) Peripheral arterial disease: (3) Hyperlipidemia: (4) Sleep apnea: (5) Hypertension: (6) Asthma: (7) Atrial fibrillation: (8) Type 2 diabetes mellitus with obesity: Plan (1) Chest pain: Plan: -Patient with substernal chest pain that started at approximately 5 PM on 04/15. Has been relatively consistent since getting to the ED. -Given aspirin on the way to the hospital. Unable to give nitro due to blood pressure. -CBC benign though did show a leukocytosis. Most likely secondary to prednisone use. -CMP showed elevated alkaline phosphatase which is chronic. -BNP of 299. -Chest x-ray showed cardiomegaly with bilateral pulmonary hilar vascular shadows. -Troponin of 55 in the ED, repeat 2-hour of 57 at time of admission. Troponin level was monitored every 6 hour. -EKG showed first-degree AV block and PVCs. Normal sinus rhythm. No ST elevation or depression. No signs of ischemia. -Cardiac Catheterization performed on 04/16. Stent was placed for thrombosis in Left Anterior Descending Artery. (2) Peripheral arterial disease: Plan: -Had a recent venous duplex ultrasound which was negative. -Was supposed to have arterial duplex lower extremities done on Tuesday. Need to reschedule for it. -Patient was recently prescribed a Medrol Dosepak. Patient felt little benefit with steroids. Discontinue Medrol Dosepak. - PT OT consultation was done while at hospital. (3) Hyperlipidemia: Plan: -Continue home pravastatin. (4) Sleep apnea: Plan: -CPAP at night. (5) Hypertension: Plan: - Continue taking Lisinopril, Metoprolol and Furosemide. - Follow up immediately if signs of Hypotension like Dizziness, Weakness , Blurred Vision and light headedness. (6) Asthma: Plan: -Continue albuterol inhaler as needed. (7) Atrial fibrillation: Plan: -Patient with a history of atrial fibrillation status post cardioversion. - Continue Eliquis. - Follow up immediately if bleeding is seen from any area. (8) Type 2 diabetes mellitus with obesity: Plan: - Continue taking home regimen Plan Fluids: None Nutrition: Heart Healthy diet Code status: Full code DVT ppx: Eliquis Dispo: Home, Followup with PCP and nut sheller. Total Time Total Time Spent Total Time Spent (In Minutes): <30 Discharge Plan Discharge Items Patient Disposition: Home - Self-Care Reason For Visit: CP R/O Discharge Diagnosis: 1. Coronary Artery Disease status post stent for single vessel atherosclerosis. Activity: Per Instructions section Activity Comment: Per Cardiologists instruction. Non-emergency contact: Primary Care Provider and Librarian Head Call non-emergency contact if: you have any medication questions, your symptoms worsen, your pain is worsening and your pain is concerning for you Follow-up/Referrals: Grady Duncan MD [Primary Care Provider] - 04/20/24 2:00 pm (Hospital follow up on April 20 at 2 pm with Bisi Vila PA-C. ) Diet: Heart Healthy Addtl Attending Provider Instructions: You presented to Emergency with complain of substernal chest since 5 PM that evening. You were evaluated for Chest Pain. BNP was elevated. Troponin was slightly elevated. Your echo showed We planned for Cardiac Catheterization which showed narrowing of blood vessel that supplies blood to your heart. So stent was placed. You are doing well after the procedure. So you can go home now. You need to take Aspirin and Plavix for 1 year. Also need to take statin to maintain your cholesterol level. Please continue to follow with your Primary Care Provider and Cardiologists. Please return to your home medications upon discharge. No changes were made to your previous medications, but two new medications were added. Please take Aspirin 81 mg (over the counter) every day as well as Clopidogrel (Plavix) 75 mg by mouth every day. You are also taking a blood thinning medication Apixaban (Eliquis) therefore, you may notice increased bruising from small bumps or bleeding from small scrapes. If you happen to fall or hit your head, please be sure to present to the ED for further evaluation as you are on blood thinning as well as antiplatelet medications. Pending Studies at Discharge: No Stand-Alone Forms: My [facility] [employer], Smoking Cessation Medications and DC Order Prescriptions: New clopidogrel 75 mg Tablet 75 mg PO QAM 30 Days Qty: 30 0RF Continued (DME) lancets [OneTouch Delica Lancets] 33 gauge misc See Rx Instructions .ROUTE .MEDSUPPLY Qty: 400 3RF Rx Instructions: use to test 4 times daily (DME) OneTouch Verio test strips Strip See Rx Instructions .ROUTE .MEDSUPPLY Qty: 50 11RF Rx Instructions: USE TO TEST ONCE DAILY E11.9 PRN metoprolol tartrate 50 mg tablet 50 mg PO BID Qty: 180 3RF furosemide 40 mg tablet 40 mg PO QAM Qty: 90 3RF allopurinol 300 mg tablet 300 mg PO BID Qty: 180 tamsulosin 0.4 mg capsule 0.4 mg PO BID Qty: 180 3RF cinnamon bark [Cinnamon] 500 mg capsule 500 mg PO BID Eliquis 5 mg tablet 5 mg PO BID Qty: 60 5RF dutasteride 0.5 mg capsule 0.5 mg PO DAILY mecobalamin (vitamin B12) 1,000 mcg tablet,disintegrating 1,000 mcg SL BID omega-3 fatty acids 1,000 mg Capsule 1,000 mg PO BID ascorbic acid (vitamin C) [Vitamin C] 500 mg Tablet 250 mg PO QAM ferrous sulfate 325 mg (65 mg iron) Tablet 325 mg PO QAM cholecalciferol (vitamin D3) [Vitamin D3] 50 mcg (2,000 unit) Capsule 50 mcg PO QAM albuterol sulfate 90 mcg/actuation HFA aerosol inhaler 1 inh inhalation QID PRN (Reason: shortness of breath or wheezing) Qty: 6.7 0RF fluticasone propion-salmeterol [Wixela Inhub] 500-50 mcg/dose blister with device 1 inh inhalation BID potassium chloride 10 mEq Capsule, Extended Release 10 meq PO QAM Ozempic 1 mg/dose (4 mg/3 mL) Pen Injector 1 mg SUBCUT WK Rx Instructions: SUNDAYS magnesium oxide 420 mg tablet 420 mg PO QAM omeprazole 20 mg Capsule,Delayed Release(Dr/Ec) 20 mg PO QAM pravastatin 20 mg Tablet 20 mg PO QAM lisinopril 20 mg tablet 20 mg PO QAM cyanocobalamin (vitamin B-12) 1,000 mcg Tablet, Sublingual 1,000 mcg SUBLINGUAL BID Discontinued methylprednisolone [Medrol (Juan)] 4 mg tablets,dose pack See Rx Instructions .Route .COMPLEX Qty: 21 0RF Rx Instructions: Take as directed ; Discharge Orders: Discharge Order (Routine); Ordered 04/17/24 Ordered By: Lazara Bustamante Admission Data Admit Date/Time: 04/16/24 05:18 Attending Provider: Moody Patel Admit Provider: Stu Ramon Primary Care Provider: Grady Duncan Other Providers: Conner Short; Lior Diaz; Carlos Lion; Gonzalo Bowling; Bart Segura; Ronald Hernandez; Anup Montiel Jr; Jimmy Todd; Viky Montes De Oca; Concepcion Winston; Grady Kumar; Grady Longoria; Miguel Allen; Tracy Pinzon; Chriss Goldsimth; Delphine Gallagher; Sid Camarena; Chriss Berkowitz; Domo Wilkins; Melvin Kramer Other Interventions: Discharge Summary Assessment (RN) Last Done: 04/17/24 12:26 Supervising Physician Co-Signing Physician Notes I personally examined the patient and verified all espino points of history and exam, discussed case, and agree with decision making with Dr Littlejohn no further chest pain. Occasional calf cramps. Vitals noted, in general he is awake and alert pleasant no distress. HEENT normocephalic atraumatic mucous membranes moist. Breathing unlabored no accessory muscle use good effort. Skin without rashes pallor or icterus. Anginanow resolved. Status post cath, Stenting. Secondary risk reduction. Continue current management. Safe/stable for home. Suspect calf cramps related to varicosities/venous insufficiencydiscussed magnesium/calcium, discussed movement, discussed compression, discussed elevation. Outpatient follow-up in this regard as well. Resident Activity Tracking Resident Involvement: Resident Care Provided Care Provided: Adult Hospital Medicine
--- NOTE | 2024-04-17 18:06 | Billing Data ---
Date of Service April 17, 2024 Coding Level of Care Code 50548 IN/OBS DISCH 30 MIN/LESS
--- NOTE | 2024-04-17 18:07 | XCELERA ---
[id number]
--- NOTE | 2024-04-19 05:50 | Electrocardiogram Report ---
Test Reason : Blood Pressure : */* mmHG Vent. Rate : 77 BPM Atrial Rate : 77 BPM P-R Int : 300 ms QRS Dur : 98 ms QT Int : 356 ms P-R-T Axes : 95 -6 69 degrees QTcB Int : 402 ms Sinus rhythm with 1st degree A-V block with frequent Premature ventricular complexes Otherwise normal ECG When compared with ECG of 16-Apr-2024 03:13, No significant change Confirmed by Jimmy Todd ([id number]) on 04/19/2024 5:50:18 AM Referred By: REFERRED SELF Confirmed By: Jimmy Todd
--- NOTE | 2024-04-19 05:50 | Electrocardiogram Report ---
Test Reason : Blood Pressure : */* mmHG Vent. Rate : 69 BPM Atrial Rate : 66 BPM P-R Int : 276 ms QRS Dur : 92 ms QT Int : 358 ms P-R-T Axes : * -5 66 degrees QTcB Int : 383 ms Sinus rhythm with 1st degree A-V block with occasional Premature ventricular complexes When compared with ECG of 10-Nov-2023 10:17, Premature ventricular complexes are now Present Confirmed by Jimmy Todd ([id number]) on 04/19/2024 5:49:59 AM Referred By: REFERRED SELF Confirmed By: Jimmy Todd
--- NOTE | 2024-04-19 05:50 | Electrocardiogram Report ---
Test Reason : Blood Pressure : */* mmHG Vent. Rate : 57 BPM Atrial Rate : 57 BPM P-R Int : 276 ms QRS Dur : 98 ms QT Int : 404 ms P-R-T Axes : 90 -10 64 degrees QTcB Int : 393 ms Sinus bradycardia with 1st degree A-V block with frequent Premature ventricular complexes Otherwise normal ECG When compared with ECG of 16-Apr-2024 14:10, No significant change was found Confirmed by Jimmy Todd ([id number] on 04/19/2024 5:50:32 AM Referred By: REFERRED SELF Confirmed By: Jimmy Todd
== END 2024-04-17 12:34 | disposition home or self-care (01) ==
LOC: 2S 03:08 → ED 03:08 → SUATTDRO 05:18 → 2S 05:54
PROC: CLB.AEU (2024-04-16 13:00)

== ENCOUNTER 2024-11-04 18:40 | Inpatient (IN) ==
--- NOTE | 2024-11-04 19:03 | Emergency Department Note ---
ED Provider Note History of Present Illness Chief Complaint: Chest Pain Stated Complaint: CHEST PAIN Time Seen by Provider: 11/04/24 18:47 79-year-old male, history of coronary artery disease with history of NSTEMI and LAD stent in April 2024, who presents the emergency department with complaint of left-sided chest discomfort that started yesterday afternoon. The patient reports that he was resting at the time. He does not feel that the pain has worsened since yesterday. The patient reports that he does not do anything strenuous, therefore does not know if his chest pain worsens with exertion. He denies any shortness of breath, nausea or sweatiness. The patient reports that this pain is somewhat different than his last chest pain in April. The patient reports that he is on Eliquis. He currently rates his discomfort a 2 out of 10. Home Medications Medication Instructions Recorded Confirmed Type cinnamon bark 500 mg capsule 500 mg PO BID 01/15/19 09/28/24 History (Cinnamon) mecobalamin (vitamin B12) 1,000 1,000 mcg sublingual BID 02/26/19 09/28/24 History mcg disintegrating tablet,sublingual OneTouch Delica Lancets 33 gauge #400 ea 01/11/20 09/28/24 Rx (lancets) blood sugar diagnostic (OneTouch #50 ea 11/13/21 09/28/24 Rx Verio test strips) albuterol sulfate 90 mcg/actuation 1 inh inhalation QID PRN shortness 03/13/22 09/28/24 Rx aerosol inhaler of breath or wheezing #6.7 grams ascorbic acid (vitamin C) 500 mg 250 mg PO QAM 03/13/22 09/28/24 History tablet (Vitamin C) cholecalciferol (vitamin D3) 50 50 mcg PO QAM 03/13/22 09/28/24 History mcg (2,000 unit) capsule (Vitamin D3) ferrous sulfate 325 mg (65 mg 325 mg PO QAM 03/13/22 09/28/24 History iron) tablet omega-3 fatty acids 1,000 mg 1,000 mg PO BID 03/13/22 09/28/24 History capsule fluticasone 500 mcg-salmeterol 50 1 inh inhalation BID 06/03/22 09/28/24 History mcg/dose blistr powdr for inhalation (Wixela Inhub) allopurinol 300 mg tablet 300 mg PO BID #180 tabs 02/23/23 09/28/24 History tamsulosin 0.4 mg capsule 0.4 mg PO BID #180 caps 03/22/23 09/28/24 Rx potassium chloride 10 mEq 10 meq PO QAM 08/03/23 09/28/24 History capsule,extended release semaglutide 1 mg/dose (4 mg/3 mL) 1 mg subcut WK 08/03/23 09/28/24 History subcutaneous pen injector (Ozempic) magnesium oxide 420 mg tablet 420 mg PO QAM 08/18/23 09/28/24 History omeprazole 20 mg capsule,delayed 20 mg PO QAM 10/12/23 09/28/24 History release apixaban 5 mg tablet (Eliquis) 5 mg PO BID #60 tabs 11/07/23 09/28/24 Rx furosemide 40 mg tablet 40 mg PO QAM #90 tabs 01/18/24 09/28/24 Rx cyanocobalamin (vitamin B-12) 1,000 mcg sublingual BID 04/16/24 09/28/24 History 1,000 mcg sublingual tablet aspirin 81 mg tablet,delayed 81 mg PO DAILY 04/18/24 09/28/24 History release ezetimibe 10 mg tablet (Zetia) 10 mg PO DAILY #90 tabs 05/01/24 09/28/24 Rx clopidogrel 75 mg tablet 75 mg PO QAM 3 months #90 tabs 05/06/24 09/28/24 Rx lisinopril 10 mg tablet 10 mg PO DAILY #30 tabs 05/06/24 09/28/24 Rx finasteride 5 mg tablet 5 mg PO DAILY 06/21/24 09/28/24 History metoprolol tartrate 50 mg tablet 50 mg PO BID hypertension #180 09/17/24 09/28/24 Rx tabs gabapentin 100 mg capsule 300 mg PO DAILY 09/28/24 09/28/24 History Allergies Allergy/AdvReac Type Severity Reaction Status Date / Time mold Allergy Intermediate respiratory Verified 09/28/24 10:21 problems atorvastatin AdvReac Intermediate Muscle Verified 09/28/24 10:21 soreness rosuvastatin AdvReac Intermediate Muscle Verified 09/28/24 10:21 soreness simvastatin AdvReac Intermediate Muscle Verified 09/28/24 10:21 soreness Past Med/Surg History Problem List NSTEMI (non-ST elevated myocardial infarction) Obesity, Class II, BMI 35-39.9 CAD (coronary artery disease) Lumbar spinal stenosis Bilateral leg pain (Acute) Type 2 diabetes mellitus with obesity Urethral stricture 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 Hematuria Hypomagnesemia (Acute) Lower extremity edema Right atrial dilatation Heme positive stool Mitral regurgitation Lumbosacral radiculopathy at L4 Elevated alkaline phosphatase level Left rotator cuff tear Injury of left upper arm Aortic stenosis Subcutaneous mass of right forearm Arthritis of right knee Adenomatous colon polyp Barretts esophagus Chronic venous insufficiency Acquired deviated nasal septum Allergic rhinitis Anemia Asthma BPH with obstruction/lower urinary tract symptoms Carpal tunnel syndrome Diabetic peripheral neuropathy Edema Elevated PSA GERD (gastroesophageal reflux disease) Gout, arthritis Hiatal hernia Inhibited sexual excitement Insomnia Intermittent claudication Joint pain, knee Morbid obesity Nocturnal hypoxia Osteoarthritis of knee Peripheral arterial disease Sensory problems with limbs 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 Hypertension Hyperlipidemia Sleep apnea CPAP Medical History History of myocardial infarction History of atrial fibrillation Elevated troponin Substernal chest pain Hyperlipidemia Hypertension Arteriosclerosis of carotid artery Carotid doppler 07/2022: <50% B/L ICA stenosis Hx of gout GERD (gastroesophageal reflux disease) Hiatal hernia per records, patient denies Sleep apnea CPAP Chronic venous insufficiency BPH (benign prostatic hyperplasia) Barretts esophagus per records, patient denies Chronic anemia Aortic stenosis Noted per remote records Per most recent Echo 08/2023: "No hemodynamically significant valvular aortic stenosis" History of skin cancer Atrial fibrillation Asthma Pulmonary hypertension Echo 08/2023: RVSP 40-50 mmHg 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 per records, patient unaware History of colon polyps History of stomach ulcers Hx 2022 Surgical History History of heart artery stent History of Mohs micrographic surgery for skin cancer H/O left cataract extraction History of right cataract surgery History of biopsy 12/18/2019 right forearm mass H/O vascular surgery right leg varicose vein surgery History of carpal tunnel release of both wrists History of prostate biopsy benign History of colonoscopy with polypectomy most recent = Jun 2022 History of esophagogastroduodenoscopy (EGD) most recent Jun 2022 History of tooth extraction all upper teeth History of wisdom tooth extraction History of tonsillectomy S/P cholecystectomy S/P cardiac cath ~2003- no stents Family History Father Myocardial infarction Mother Family history of diabetes mellitus Brother Family history of diabetes mellitus Other No family history of adverse response to anesthesia Denies family history of Ovarian cancer Prostate cancer Coronary heart disease Breast cancer Colorectal cancer Social History Smoking Status: Former smoker Tobacco Type: Cigarettes Age Started Using Tobacco: 11; Age Quit Using Tobacco: 42; packs per day: 1; Cigarettes Per Day: Quit 30+yrs ago; Second Hand Exposure: No; Do You Dip or Chew Tobacco: No; Hx Alcohol Use: No Hx Substance Use: No Preferred Language: Amharic Communication Ability: Effective Visual Impairment: No Limitations Hearing Ability: Normal Horse Rancher Required: No Beliefs That Will Affect Care: None marital status: Current Living Situation: Spouse current occupational status: retired current occupation: Retired Feels Safe at Home: Yes Childhood Exposure to Second-Hand Smoke: No Diet: regular caffeine: Yes during the past year weight has: remained stable Dental Care, Regularly: Yes Physical Activity Frequency: Does not Exercise Seatbelt Use: always Sunscreen Use: Yes Assistive Devices: Cane Physical Exam Vital Signs Vital Signs - 24 hr 11/04/24 18:40 11/04/24 18:40 11/04/24 18:42 Temperature 36.5 C Temperature Source Temporal Artery Scan Pulse Rate 69 Pulse Rate [Right Finger] 71 Pulse Rhythm Regular Pulse Rhythm [Right Finger] Respiratory Rate 16 18 Respiratory Effort / Characteristics Non-Labored Spontaneous Respiratory Depth Normal Normal Respiratory Pattern Regular Blood Pressure 105/57 L Blood Pressure [Right Arm] 116/61 Blood Pressure Mean 73 Blood Pressure Mean [Right Arm] 79 Blood Pressure Position Sitting Pulse Oximetry 97 99 Oxygen Delivery Method Room Air Room Air Room Air Oxygen Flow Rate 97 Sepsis Recent Fever Within 48 Hours No Sepsis New/Unexplained Change in Mental Status No Sepsis Action Taken by Nursing No Action Required 11/04/24 18:50 11/04/24 18:51 11/04/24 20:40 Temperature Temperature Source Pulse Rate 71 76 Pulse Rate [Right Finger] 72 Pulse Rhythm Pulse Rhythm [Right Finger] Regular Respiratory Rate 16 16 Respiratory Effort / Characteristics Respiratory Depth Respiratory Pattern Blood Pressure Blood Pressure [Right Arm] 128/68 Blood Pressure Mean Blood Pressure Mean [Right Arm] 88 Blood Pressure Position Pulse Oximetry 97 97 Oxygen Delivery Method Room Air Room Air Oxygen Flow Rate Sepsis Recent Fever Within 48 Hours Sepsis New/Unexplained Change in Mental Status Sepsis Action Taken by Nursing CONSTITUTIONAL: Obese male who is alert and oriented x 3, and does not appear in any acute distress. The patient is not diaphoretic or dyspneic. HEENT: No scleral icterus or conjunctival injection. NECK: Full active range of motion without discomfort. No JVD or carotid bruits appreciated. LYMPHATICS: No cervical chain adenopathy. RESPIRATORY: Clear to auscultation bilaterally with no wheezing, crackles, rhonchi or stridor. CARDIOVASCULAR: Regular rate and rhythm with a grade 3 out of 6 systolic ejection murmur best heard at the left lower sternal border. No rubs or gallops appreciated. GASTROINTESTINAL: Abdomen is protuberant but soft and nontender to palpation. Bowel sounds present in all quadrants. MUSCULOSKELETAL: No tenderness to palpation over the anterior left chest wall. INTEGUMENTARY: No rash or other significant dermatologic conditions noted. HEMATOLOGIC: No ecchymosis or petechiae. PSYCHIATRIC: Positive affect. NEUROLOGIC: No focal neurologic deficits noted. Course Course Patient history and physical exam were performed. Nursing notes were reviewed. Vital signs were reviewed, showing a mild hypotension of 105/57. The patient is not hypoxic, tachycardic, bradycardic or febrile. IV access was established, and labs were ordered and drawn. An ECG was performed, showing a junctional rhythm [address] elevations or ischemic changes appreciated. The patient was placed on pin attacher while in the emergency department. Portable chest x-ray did not show any concerning findings. Further review of labs shows a mildly bumped troponin of 36.3. Patient is also hyponatremic, which appears to be baseline for the patient. Patient is also anemic with a hemoglobin of 10.6, and again showing that this is the patient's usual baseline. Findings were discussed with Dr. Guaman, ED attending physician, who did recommend hospitalist consultation given his prior history of non-STEMI and LAD stent, as well as his age and other risk factors. Findings were also discussed with the patient and family, who were in agreement with further cardiac monitoring overnight. The case was then discussed with the [facility]ist service. Please see their dictation for further treatment and final disposition. Administered Medications Discontinued Medications Aspirin (Aspirin Chew 324 Mg) 324 mg PO NOW STA Stop: 11/04/24 18:52 Last Admin: 11/04/24 19:12 Dose: 324 mg Documented By: TRACY Medical Decision Making Medical Records Attestation: I reviewed the patient's medical records. Home Medications was personally reviewed by me Laboratory Data Attestation: I reviewed the patient's lab results. 11/04/24 19:00 11/04/24 19:00 Lab Results 11/04/24 11/04/24 Range/Units 19:00 20:37 WBC 7.22 (4.8-10.8) K/ul RBC 3.42 L (4.70-6.10) M/uL Hgb 10.6 L (14.0-18.0) g/dl Hct 31.6 L (42.0-52.0) % MCV 92.4 (80.0-100.0) fL MCH 31.0 (25.0-34.0) pg MCHC 33.5 (32.0-36.0) g/dL RDW Std Deviation 53.9 H (36.4-46.3) fL RDW Coeff of Valdo 16.2 H (11.5-14.5) % Plt Count 167 (130-400) K/uL MPV 9.9 (9.4-12.4) fL Immature Gran % (Auto) 0.7 % Neut % (Auto) 65.1 % Lymph % (Auto) 20.5 % Sully % (Auto) 10.8 % Eos % (Auto) 2.5 % Baso % (Auto) 0.4 % Neut # (Auto) 4.70 (1.40-6.50) K/uL Lymph # (Auto) 1.48 (1.20-3.40) K/uL Sully # (Auto) 0.78 H (0.11-0.59) K/uL Eos # (Auto) 0.18 (0.00-0.50) K/uL Baso # (Auto) 0.03 (0.00-0.20) K/uL Immature Gran # (Auto) 0.05 (0.01-0.20) K/uL PT 11.3 (9.0-12.0) Seconds INR 1.0 (0.9-1.1) APTT 34 H (21-31) Seconds PTT Ratio 1.3 Sodium 132 L (136-145) mmol/L Potassium 4.2 (3.5-5.1) mmol/L Chloride 96 L (98-107) mmol/L Carbon Dioxide 27 (21-32) mmol/L Anion Gap 9 (3-11) BUN 28 H (6-23) mg/dl Creatinine 1.28 (0.6-1.4) mg/dl Est Cr Clr Drug Dosing Not Reportable eGFR 56.93 BUN/Creatinine Ratio 21.9 H (10-20) Glucose 119 H (70-99(Fasting)) mg/dl Calcium 9.3 (8.6-10.3) mg/dl Total Bilirubin 0.5 (0.2-1.0) mg/dl AST 18 (13-39) U/L ALT 14 (7-52) U/L Alkaline Phosphatase 147 H (34-104) U/L Troponin I High Sens 36.3 H 37.0 H (0-20) pg/ml Total Protein 6.8 (6.0-8.3) gm/dl Albumin 3.8 (3.4-5.0) gm/dl Globulin 3.0 (2.5-4.0) gm/dl Albumin/Globulin Ratio 1.3 (0.9-2) Lipase 37 (11-82) U/L Imaging Data Attestation: I personally reviewed and interpreted this imaging study as follows: My Impression: My interpretation of a portable chest x-ray does not show pneumonia, failure pattern or worsening cardiomegaly when compared to his prior chest x-ray in April 2024. Radiologist report was also reviewed with concurrence. Radiologist's Impression: Chest X-Ray 11/04/24 18:50 EXAM: Portable AP chest radiograph TECHNIQUE: AP portable radiograph of the chest was obtained. INDICATION: Shortness of breath Comparison: Chest radiograph April 16, 2024 FINDINGS: LINES and TUBES: None CARDIOVASCULAR: Cardiac silhouette is stably enlarged. Atherosclerosis of the thoracic aorta in size. LUNGS/PLEURA: Mild pulmonary vascular congestion is similar to previous. No focal consolidation identified. Bibasilar atelectasis. No significant pleural fluid. No discernible pneumothorax. OSSEOUS/OTHER: No displaced acute osseous process identified. IMPRESSION: Enlarged cardiac silhouette and changes of the cardiovascular system that are similar to the previous radiograph. Electronically signed by Shane Dunham 11-04-2024 8:48 PM ECG Data Attestation: I personally reviewed and interpreted this ECG as follows: Indication: + chest pain Rate (beats per minute): 77 Rhythm: + junctional ECG Intervals/blocks: + Normal QRS, + Normal QT and + Normal LA ECG ST segments: + Normal ST segments Comparison ECG Date: from (06/21/2024) Change: the following changes noted (Junctional rhythm has replaced atrial fibrillation) MDM Narrative Cardiac monitoring: An order was placed for continuous cardiac monitoring. The monitor shows a rate of 77 bpm with a junctional rhythm. 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 See ED Course section for further details of today's visit. The patient presents for evaluation of left-sided chest pain that started yesterday afternoon. The patient reports that he has not had any exertional activity since onset of pain, therefore he does not know if he has any alleviating or aggravating factors for the pain. The patient was resting yesterday when he developed the pain. Review of record shows that the patient did have an LAD stent placed in April 2024 for a non-STEMI. Patient does have a mildly elevated troponin today, with additional trending warranted given his prior history and other risk factors. The patient was also in agreement with this plan. The [facility] hospitalist service was consulted for this admission. The case was also discussed with Dr. Guaman, ED attending physician, who also agrees with further hospitalist evaluation. Impression Left-sided chest pain, History of non-ST elevation myocardial infarction (NSTEMI), History of placement of stent in LAD coronary artery Discharge Plan Visit Data Chief Complaint: Chest Pain Stated Complaint: CHEST PAIN ED Provider: Mango Guaman ED Midlevel Provider: Keagan Muñoz Discharge Problem: Left-sided chest pain, History of non-ST elevation myocardial infarction (NSTEMI), History of placement of stent in LAD coronary artery Patient Disposition: Admitted As Inpatient Condition: Fair Forms Stand Alone Forms: My [facility] Prescriptions Prescriptions: No Action (DME) lancets [OneTouch Delica Lancets] 33 gauge misc See Rx Instructions .ROUTE .MEDSUPPLY Qty: 400 3RF Rx Instructions: use to test 4 times daily (DME) OneTouch Verio test strips Strip See Rx Instructions .ROUTE .MEDSUPPLY Qty: 50 11RF Rx Instructions: USE TO TEST ONCE DAILY E11.9 PRN furosemide 40 mg tablet 40 mg PO QAM Qty: 90 3RF metoprolol tartrate 50 mg tablet 50 mg PO BID Qty: 180 3RF allopurinol 300 mg tablet 300 mg PO BID Qty: 180 tamsulosin 0.4 mg capsule 0.4 mg PO BID Qty: 180 3RF cinnamon bark [Cinnamon] 500 mg capsule 500 mg PO BID finasteride 5 mg tablet 5 mg PO DAILY Eliquis 5 mg tablet 5 mg PO BID Qty: 60 5RF ezetimibe [Zetia] 10 mg tablet 10 mg PO DAILY Qty: 90 3RF gabapentin 100 mg capsule 300 mg PO DAILY clopidogrel 75 mg tablet 75 mg PO QAM 90 Days Qty: 90 2RF lisinopril 10 mg tablet 10 mg PO DAILY Qty: 30 6RF aspirin 81 mg tablet,delayed release (DR/EC) 81 mg PO DAILY Patient Comments: PER DC SUMMARY ON 04/17-PT TO TAKE ASPIRIN 81MG DAILY ALONG WITH PLAVIX FOR X1 YEAR. mecobalamin (vitamin B12) 1,000 mcg tablet,disintegrating 1,000 mcg SL BID omega-3 fatty acids 1,000 mg Capsule 1,000 mg PO BID ascorbic acid (vitamin C) [Vitamin C] 500 mg Tablet 250 mg PO QAM ferrous sulfate 325 mg (65 mg iron) Tablet 325 mg PO QAM cholecalciferol (vitamin D3) [Vitamin D3] 50 mcg (2,000 unit) Capsule 50 mcg PO QAM albuterol sulfate 90 mcg/actuation HFA aerosol inhaler 1 inh inhalation QID PRN (Reason: shortness of breath or wheezing) Qty: 6.7 0RF fluticasone propion-salmeterol [Wixela Inhub] 500-50 mcg/dose blister with device 1 inh inhalation BID potassium chloride 10 mEq Capsule, Extended Release 10 meq PO QAM Ozempic 1 mg/dose (4 mg/3 mL) Pen Injector 1 mg SUBCUT WK Rx Instructions: SUNDAYS magnesium oxide 420 mg tablet 420 mg PO QAM omeprazole 20 mg Capsule,Delayed Release(Dr/Ec) 20 mg PO QAM cyanocobalamin (vitamin B-12) 1,000 mcg Tablet, Sublingual 1,000 mcg SUBLINGUAL BID Referrals Referrals: Grady Duncan MD [Primary Care Provider] - ED DC CONDITION Conditon at Discharge Condition at Discharge: Good
[2024-11-04 19:10] LABS: Hematocrit (blood only) 31.6 % (42.0-52.0); Hemoglobin 10.6 g/dl (14.0-18.0); Immature Granulocytes # (auto) 0.05 K/uL (0.01-0.20); Immature Granulocytes % (auto) 0.7 %; Mean Corpuscular Hemoglobin 31.0 pg (25.0-34.0); Mean Corpuscular Volume 92.4 fL (80.0-100.0); Platelet Count 167 K/uL (130-400); RDW Standard Deviation 53.9 fL (36.4-46.3); Red Blood Count 3.42 M/uL (4.70-6.10); White Blood Count 7.22 K/ul (4.8-10.8)
[2024-11-04] MEDS: ASPIRIN CHEW 324 MG PO STA (19:12)
[2024-11-04 19:27] LABS: Alanine Aminotransferase 14 U/L (7-52); Albumin Globulin Ratio 1.3 (0.9-2); Alkaline Phosphatase 147 U/L (34-104); Anion Gap 9 (3-11); Bilirubin,Total 0.5 mg/dl (0.2-1.0); Blood Urea Nitrogen 28 mg/dl (6-23); Calcium 9.3 mg/dl (8.6-10.3); Carbon Dioxide 27 mmol/L (21-32); Chloride 96 mmol/L (98-107); Globulin 3.0 gm/dl (2.5-4.0); Glucose 119 mg/dl (70-99(Fasting)); Lipase 37 U/L (11-82); Potassium 4.2 mmol/L (3.5-5.1); Sodium 132 mmol/L (136-145); Total Protein 6.8 gm/dl (6.0-8.3)
[2024-11-04 20:03] LABS: INR 1.0 (0.9-1.1); Partial Thromboplastin Time 34 Seconds (21-31); Prothrombin Time 11.3 Seconds (9.0-12.0)
--- NOTE | 2024-11-04 20:16 | History & Physical Report ---
Date of Service November 04, 2024 Assessment & Plan (1) NSTEMI (non-ST elevated myocardial infarction): Plan: 79-year-old male with a recent history of PCI who presents with 2 episodes of chest pain at rest with a mild troponin elevation and T wave changes in his inferior leads. He is recommended for cardiac evaluation. Chest pain At time of hospitalist assessment chest pain has resolved. Has had 2 episodes in the last 24 hours of chest pain onset at rest. First episode lasted until he went to bed, second episode lasted approximately an hour. Less intense than his prior NSTEMI pain. Denies GERD, shortness of breath, reflux. He has not had any exertional/progressive anginal symptoms overall leading up to this. Pain lasted for over an hour before admission with a relatively minimal troponin elevation. No suspicion for ischemic etiology however he is high risk with a mildly elevated troponin and T wave inversions in III/aVF. Will temporarily convert his Eliquis to heparin pending cardiac workup, trend troponin, obtain limited echo. EKG without acute territorial ST segment changes, T wave inversions are new in 3/aVF compared to prior - PCI to ostial/proximal LAD with SOPHIE 04/2024 and residual OM/left PDA Minimal troponin elevation in the ER, 36.3 with repeat pending Patient is anticoagulated on Eliquis for history of paroxysmal A-fib. Transition to heparin gtt. on admission Admit to PCU Cardiology consulted 2023 TTE: LVEF 55 to 60%, abnormal septal motion. RV mildly dilated with grossly normal function DAPT continued Metoprolol continued Statin intolerant Type II DM Ozempic held Basal bolus SSI while admitted Goal BSG [id number] Glucose checks AC/at bedtime BPH/LUTS Continue Flomax Continue finasteride Hyperlipidemia Continue Zetia DVT prophylaxis: Anticoagulated Diet: N.p.o. at midnight Dispo: PCU CODE: Full (2) CAD (coronary artery disease): (3) Lumbar spinal stenosis: (4) Type 2 diabetes mellitus with obesity: (5) BPH with obstruction/lower urinary tract symptoms: History of Present Illness Primary Care Provider: Grady Duncan MD Mango is a 79-year-old male with a past medical history of obesity, type II DM, lumbar stenosis, BPH/LUTS, GERD, hypertension, hyperlipidemia and prior CAD with PCI to ostial/proximal LAD with SOPHIE 04/2024 and residual OM/left PDA disease who presents to hospital for left-sided chest discomfort of 1 day different in quality from his NSTEMI in April. 06/11 pain at time of admitting assessment. Has not changed since the day prior, persistent for several hours at time of ER evaluation. High sensitive troponin 36.3, repeat pending. EKG is accelerated junctional rhythm nonspecific inferior T wave changes. Chest pain first time yesterday. Was just laying down in bed. Was left sided in the chest. [place] different compared to his prior heart attack in that it was much less intense, in the same area. Yesterday lasted until he fell asleep. Was gone when he woke up. Came back tonight ~6pm when laying down again. No shortness of breath, no diffiulty breathing, no sweating. No recent chest pain/angina walking or with activities, although notes he is not highly active. Denies history of acid reflux Denies palpitations Denies recent illness. Denies fever, chills, cough, dysuria, abdominal pain, polyuria. Taking all medicines as directed. Took eliquis this morning, is due for his evening medications. Medical History: Reviewed Medications: Reviewed Surgical History: Reviewed Family history: Reviewed Allergies: Reviewed Social History: No tobacco use, in remission for years. No etoh use. Code Status: Full Code Allergies Allergy/AdvReac Type Severity Reaction Status Date / Time mold Allergy Intermediate respiratory Verified 09/28/24 10:21 problems atorvastatin AdvReac Intermediate Muscle Verified 09/28/24 10:21 soreness rosuvastatin AdvReac Intermediate Muscle Verified 09/28/24 10:21 soreness simvastatin AdvReac Intermediate Muscle Verified 09/28/24 10:21 soreness Home Medications Medication Instructions Recorded Confirmed Type cinnamon bark 500 mg capsule 500 mg PO BID 01/15/19 09/28/24 History (Cinnamon) mecobalamin (vitamin B12) 1,000 1,000 mcg sublingual BID 02/26/19 09/28/24 History mcg disintegrating tablet,sublingual OneTouch Delica Lancets 33 gauge #400 ea 01/11/20 09/28/24 Rx (lancets) blood sugar diagnostic (OneTouch #50 ea 11/13/21 09/28/24 Rx Verio test strips) albuterol sulfate 90 mcg/actuation 1 inh inhalation QID PRN shortness 03/13/22 09/28/24 Rx aerosol inhaler of breath or wheezing #6.7 grams ascorbic acid (vitamin C) 500 mg 250 mg PO QAM 03/13/22 09/28/24 History tablet (Vitamin C) cholecalciferol (vitamin D3) 50 50 mcg PO QAM 03/13/22 09/28/24 History mcg (2,000 unit) capsule (Vitamin D3) ferrous sulfate 325 mg (65 mg 325 mg PO QAM 03/13/22 09/28/24 History iron) tablet omega-3 fatty acids 1,000 mg 1,000 mg PO BID 03/13/22 09/28/24 History capsule fluticasone 500 mcg-salmeterol 50 1 inh inhalation BID 06/03/22 09/28/24 History mcg/dose blistr powdr for inhalation (Wixela Inhub) allopurinol 300 mg tablet 300 mg PO BID #180 tabs 02/23/23 09/28/24 History tamsulosin 0.4 mg capsule 0.4 mg PO BID #180 caps 03/22/23 09/28/24 Rx potassium chloride 10 mEq 10 meq PO QAM 08/03/23 09/28/24 History capsule,extended release semaglutide 1 mg/dose (4 mg/3 mL) 1 mg subcut WK 08/03/23 09/28/24 History subcutaneous pen injector (Ozempic) magnesium oxide 420 mg tablet 420 mg PO QAM 08/18/23 09/28/24 History omeprazole 20 mg capsule,delayed 20 mg PO QAM 10/12/23 09/28/24 History release apixaban 5 mg tablet (Eliquis) 5 mg PO BID #60 tabs 11/07/23 09/28/24 Rx furosemide 40 mg tablet 40 mg PO QAM #90 tabs 01/18/24 09/28/24 Rx cyanocobalamin (vitamin B-12) 1,000 mcg sublingual BID 04/16/24 09/28/24 History 1,000 mcg sublingual tablet aspirin 81 mg tablet,delayed 81 mg PO DAILY 04/18/24 09/28/24 History release ezetimibe 10 mg tablet (Zetia) 10 mg PO DAILY #90 tabs 05/01/24 09/28/24 Rx clopidogrel 75 mg tablet 75 mg PO QAM 3 months #90 tabs 05/06/24 09/28/24 Rx lisinopril 10 mg tablet 10 mg PO DAILY #30 tabs 05/06/24 09/28/24 Rx finasteride 5 mg tablet 5 mg PO DAILY 06/21/24 09/28/24 History metoprolol tartrate 50 mg tablet 50 mg PO BID hypertension #180 09/17/24 09/28/24 Rx tabs gabapentin 100 mg capsule 300 mg PO DAILY 09/28/24 09/28/24 History Past Med/Surg History Problem List (Updated 11/04/24 @ 20:34 by Yanick Lopez MD) NSTEMI (non-ST elevated myocardial infarction) Obesity, Class II, BMI 35-39.9 CAD (coronary artery disease) Lumbar spinal stenosis Bilateral leg pain (Acute) Type 2 diabetes mellitus with obesity Urethral stricture 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 Hematuria Hypomagnesemia (Acute) Lower extremity edema Right atrial dilatation Heme positive stool Mitral regurgitation Lumbosacral radiculopathy at L4 Elevated alkaline phosphatase level Left rotator cuff tear Injury of left upper arm Aortic stenosis Subcutaneous mass of right forearm Arthritis of right knee Adenomatous colon polyp Barretts esophagus Chronic venous insufficiency Acquired deviated nasal septum Allergic rhinitis Anemia Asthma BPH with obstruction/lower urinary tract symptoms Carpal tunnel syndrome Diabetic peripheral neuropathy Edema Elevated PSA GERD (gastroesophageal reflux disease) Gout, arthritis Hiatal hernia Inhibited sexual excitement Insomnia Intermittent claudication Joint pain, knee Morbid obesity Nocturnal hypoxia Osteoarthritis of knee Peripheral arterial disease Sensory problems with limbs 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 Hypertension Hyperlipidemia Sleep apnea CPAP Medical History History of myocardial infarction History of atrial fibrillation Elevated troponin Substernal chest pain Hyperlipidemia Hypertension Arteriosclerosis of carotid artery Carotid doppler 07/2022: <50% B/L ICA stenosis Hx of gout GERD (gastroesophageal reflux disease) Hiatal hernia per records, patient denies Sleep apnea CPAP Chronic venous insufficiency BPH (benign prostatic hyperplasia) Barretts esophagus per records, patient denies Chronic anemia Aortic stenosis Noted per remote records Per most recent Echo 08/2023: "No hemodynamically significant valvular aortic stenosis" History of skin cancer Atrial fibrillation Asthma Pulmonary hypertension Echo 08/2023: RVSP 40-50 mmHg 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 per records, patient unaware History of colon polyps History of stomach ulcers Hx 2022 Surgical History History of heart artery stent History of Mohs micrographic surgery for skin cancer H/O left cataract extraction History of right cataract surgery History of biopsy 12/18/2019 right forearm mass H/O vascular surgery right leg varicose vein surgery History of carpal tunnel release of both wrists History of prostate biopsy benign History of colonoscopy with polypectomy most recent = Jun 2022 History of esophagogastroduodenoscopy (EGD) most recent Jun 2022 History of tooth extraction all upper teeth History of wisdom tooth extraction History of tonsillectomy S/P cholecystectomy S/P cardiac cath ~2003- no stents Family History Father Myocardial infarction Mother Family history of diabetes mellitus Brother Family history of diabetes mellitus Other No family history of adverse response to anesthesia Denies family history of Ovarian cancer Prostate cancer Coronary heart disease Breast cancer Colorectal cancer Social History Smoking Status: Former smoker Tobacco Type: Cigarettes Age Started Using Tobacco: 11; Age Quit Using Tobacco: 42; packs per day: 1; Cigarettes Per Day: Quit 30+yrs ago; Second Hand Exposure: No; Do You Dip or Chew Tobacco: No; Hx Alcohol Use: No Hx Substance Use: No Preferred Language: [place] Communication Ability: Effective Visual Impairment: No Limitations Hearing Ability: Normal Safety Officer Required: No Beliefs That Will Affect Care: None marital status: Current Living Situation: Spouse current occupational status: retired current occupation: Retired Feels Safe at Home: Yes Childhood Exposure to Second-Hand Smoke: No Diet: regular caffeine: Yes during the past year weight has: remained stable Dental Care, Regularly: Yes Physical Activity Frequency: Does not Exercise Seatbelt Use: always Sunscreen Use: Yes Assistive Devices: Cane Physical Exam Physical Exam: General: A&Ox3. NAD. Cooperative. HEENT: Atraumatic, normocephalic. Vision/hearing intact. PERLAA Pulm: CTAB A&P. -wheezes, -rales, -rhonchi. Symmetrical chest rise. No increased work of breathing. No respiratory distress. Cardiac: RRR, +sm. Radial pulses intact and symmetrical. Abdominal: Nontender, nondistended, soft. BS present. Ext: warm/dry. No edema Results & Data Results & Data Vital Signs (Past 12 Hours) Vital Signs Temp Pulse Pulse Resp BP BP Pulse Ox 11/04/24 18:51 76 11/04/24 18:50 71 16 97 11/04/24 18:42 36.5 C 69 18 105/57 L 99 11/04/24 18:40 71 16 116/61 97 11/04/24 18:40 O2 Del Method O2 Flow Rate 11/04/24 18:51 11/04/24 18:50 Room Air 11/04/24 18:42 Room Air 11/04/24 18:40 Room Air 11/04/24 18:40 Room Air 97 PG Care Time/CCT Total # of Minutes Spent Total Time Spent with Patient: Total time spent is greater than 50% in coordination of care (as documented) at patient's floor/unit and/or counseling patient: Coding Level of Care Code 01718 INT INP/OBS CARE 3/75MIN Diagnoses NSTEMI (non-ST elevated myocardial infarction) I21.4 CAD (coronary artery disease) I25.10 Lumbar spinal stenosis M48.061 Type 2 diabetes mellitus with obesity E11.69; E66.9 BPH with obstruction/lower urinary tract symptoms N40.1; N13.8
--- NOTE | 2024-11-04 20:28 | Emergency Department Note ---
ED Visit Note I was consulted by the Advanced Practice Provider, Keagan Muñoz PA-C. I personally made/approved the management plan and take responsibility for the patient management. I performed a substantive portion of the visit. This includes the aspects of: -MDM -I independently interpreted the following studies: Chest x-ray. Findings: A chest x-ray was performed and revealed no pneumothorax, effusion, infiltrate, pulmonary edema, free air under the diaphragm, or wide mediastinum. Impression: No acute disease. Internal service consulted due to the patient's cardiac history and his symptoms. Cardiac troponin is minimally elevated. Patient was admitted for further management. I refer you to the EMR for further details. .
[2024-11-04] MEDS ORDERED: ALBUTEROL HFA 8 GM INHALER INH PRN (20:35)
--- NOTE | 2024-11-04 20:49 | XRay Report ---
EXAM: Portable AP chest radiograph TECHNIQUE: AP portable radiograph of the chest was obtained. INDICATION: Shortness of breath Comparison: Chest radiograph April 16, 2024 FINDINGS: LINES and TUBES: None CARDIOVASCULAR: Cardiac silhouette is stably enlarged. Atherosclerosis of the thoracic aorta in size. LUNGS/PLEURA: Mild pulmonary vascular congestion is similar to previous. No focal consolidation identified. Bibasilar atelectasis. No significant pleural fluid. No discernible pneumothorax. OSSEOUS/OTHER: No displaced acute osseous process identified. IMPRESSION: Enlarged cardiac silhouette and changes of the cardiovascular system that are similar to the previous radiograph. Electronically signed by Shane Dunham 11-04-2024 8:48 PM
[2024-11-04] MEDS: METOPROLOL TARTRATE 50 MG TAB PO SCH (22:40)
[2024-11-04] MEDS: HEPARIN 25000 UNIT/500 ML D5W 25,000 UNITS/500 ML BAG IV SCH (22:45)
[2024-11-05] MEDS ORDERED: DEXTROSE 50% 50 ML SYRINGE IV PRN (00:18)
[2024-11-05] MEDS ORDERED: GLUCAGON FOR INJ 1 MG VIAL SQ PRN (00:18)
[2024-11-05] MEDS ORDERED: CARBOHYDRATES FOR HYPOGLYCEMIA PO PRN (00:18)
[2024-11-05] MEDS ORDERED: NITROGLYCERIN SL 0.4 MG/TAB TAB SL PRN (00:18)
[2024-11-05] MEDS ORDERED: GLUCOSE 10 TAB/TUBE PO PRN (00:18)
[2024-11-05] MEDS ORDERED: ACETAMINOPHEN 325 MG TAB PO PRN (00:18)
[2024-11-05] MEDS ORDERED: GLUCOSE 40% GEL 15 GM TUBE PO PRN (00:18)
[2024-11-05] MEDS: CYANOCOBALAMIN (B-12) 500 MCG TABLET PO SCH (00:21)
[2024-11-05] MEDS: INSULIN ASPART PER UNIT CHARGE SC SCH (00:43)
[2024-11-05 06:23] LABS: Hematocrit (blood only) 31.4 % (42.0-52.0); Hemoglobin 10.5 g/dl (14.0-18.0); Mean Corpuscular Hemoglobin 31.3 pg (25.0-34.0); Mean Corpuscular Volume 93.5 fL (80.0-100.0); Platelet Count 165 K/uL (130-400); RDW Standard Deviation 54.4 fL (36.4-46.3); Red Blood Count 3.36 M/uL (4.70-6.10); White Blood Count 6.37 K/ul (4.8-10.8)
[2024-11-05 06:49] LABS: INR 1.0 (0.9-1.1); Partial Thromboplastin Time 43 Seconds (21-31); Prothrombin Time 11.2 Seconds (9.0-12.0)
[2024-11-05 06:55] LABS: ANTI-Xa, LMWH(Low Molecular Wt > 1.50 IU/ML (< 0.10)
[2024-11-05 07:05] LABS: Anion Gap 7.0 (3-11); Bilirubin,Total 0.6 mg/dl (0.2-1.0); Calcium 9.3 mg/dl (8.6-10.3); Carbon Dioxide 29.0 mmol/L (21-32); Chloride 98.0 mmol/L (98-107); Magnesium 1.7 mg/dl (1.7-2.4); Potassium 4.0 mmol/L (3.5-5.1); Sodium 134.0 mmol/L (136-145)
[2024-11-05 07:11] LABS: Alanine Aminotransferase 12.0 U/L (7-52); Albumin Globulin Ratio 1.5 (0.9-2); Alkaline Phosphatase 123.0 U/L (34-104); Blood Urea Nitrogen 24.0 mg/dl (6-23); Creatinine Clr Calc Pharmacy 73.7 ml/min; Globulin 2.5 gm/dl (2.5-4.0); Glucose 124.0 mg/dl (70-99(Fasting)); Total Protein 6.2 gm/dl (6.0-8.3)
[2024-11-05 08:14] LABS: ANTI-Xa, UFH(UnfractionatedHep > 1.50 IU/ml (0.3-0.7)
[2024-11-05 08:19] VITALS: RESP 21
[2024-11-05] MEDS: LANTUS PER UNIT CHARGE SQ SCH (08:40)
[2024-11-05] MEDS: FINASTERIDE 5 MG TAB PO SCH (08:42)
[2024-11-05] MEDS: FLUTICASONE/VILANTEROL 200/25MCG 14 PUFFS/INHALER INH SCH (08:42)
[2024-11-05] MEDS: POTASSIUM CHLORIDE 10 MEQ TABCR PO SCH (08:42)
[2024-11-05] MEDS: EZETIMIBE 10 MG TAB PO SCH (08:43)
[2024-11-05] MEDS: MAGNESIUM OXIDE 400 MG TAB PO SCH (08:43)
[2024-11-05] MEDS: ASPIRIN 81 MG ECTAB PO SCH (08:43)
[2024-11-05] MEDS: GABAPENTIN 300 MG CAP PO SCH (08:43)
[2024-11-05] MEDS: CLOPIDOGREL BISULFATE 75 MG TAB PO SCH (08:43)
[2024-11-05] MEDS: TAMSULOSIN HCL 0.4 MG CAP PO SCH (08:44)
[2024-11-05] MEDS: FERROUS SULFATE 325 MG TAB PO SCH (08:45)
--- NOTE | 2024-11-05 10:00 | XCELERA ---
[id number]
[2024-11-05 10:54] LABS: ANTI-Xa, UFH(UnfractionatedHep 1.49 IU/ml (0.3-0.7)
[2024-11-05 11:07] VITALS: BP 115/67; TEMP 97.3; O2SAT 92
[2024-11-05] MEDS: Heparin IV Adult Wt-Based Low-Dose *NO* INITIAL Bolus Protocol IV STA (12:13)
[2024-11-05 12:16] LABS: ANTI-Xa, UFH(UnfractionatedHep 1.31 IU/ml (0.3-0.7)
--- NOTE | 2024-11-05 13:07 | Cardiology Consultation ---
Date of Consultation November 05, 2024 Assessment & Plan (1) Chest pain: (2) CAD (coronary artery disease): (3) Mitral regurgitation: (4) Atrial fibrillation: Plan 1. Chest pain: He feels the symptoms are similar to those he presented with in 04/2024. At that time he did undergo percutaneous intervention to the proximal LAD. However, there not appear to be evidence of an ACS on angiography. He had a relatively extended episode lasting 1 to 2 hours by his report. Biomarkers very minimally elevated. I do not think this is a high risk situation. It would seem reasonable to try some medical therapy. I think we can intensify his medical regimen to include a long-acting nitrate. Will have him ambulate this afternoon. In the absence of recurrent symptoms he could be discharged on his current medical regimen. 2. Coronary disease: He will continue secondary prevention with Zetia (intolerance to statins), Eliquis and dual antiplatelet therapy 3. Atrial fibrillation: No current symptoms. No known recurrence in some time. He will be continued on metoprolol and apixaban. 4. Mitral regurgitation: Moderate. This can be monitored over time. 5. Peripheral vascular disease: He has some cramping in the calves on occasion. However, ambulation appears to be more limited due to weakness and instability. History of Present Illness Reason for Consultation: Chest pain Requesting Physician: John Attending Physician: Grady Knowles MD History of Present Illness The patient is a 79-year-old gentleman history of coronary artery disease having previously undergone percutaneous intervention to the LAD in 04/2024. He is also known to have an element of peripheral vascular disease with a 90% stenosis in the left superficial femoral artery. He has a history of paroxysmal atrial fibrillation, hypertension, hyperlipidemia and diabetes. He presented to the hospital with complaints of chest discomfort. He states that 2 days prior to admission he had an element of discomfort in the left upper chest/axillary region. This occurred when he was lying down to go to bed. It was of unclear duration and fairly mild. The following morning when he woke up he had resolved. However, he had additional episode yesterday while at rest. Again, same location and character. Not pleuritic in nature. Not worsened with any particular movement. No relief with changes in position. The patient did not try any additional remedies for his symptoms. Based on the nature of the symptoms, its character and absence of resolution he eventually came to the emergency room for an evaluation. It is unclear what resolved the symptoms. He feels that the episode lasted 1 to 2 hours. Did not appear to be associated dizziness or lightheadedness. No palpitations. No significant breathing difficulty. No recurrence since he is been in the hospital. In general, he is sedentary. He ambulates with a walker or a cane. Ambulation is limited primarily by lower extremity weakness and discomfort. He has had several falls over the years. Again, no sense of palpitation or dizziness. No orthopnea. He does use CPAP at nighttime. Allergies Allergy/AdvReac Type Severity Reaction Status Date / Time mold Allergy Intermediate respiratory Verified 09/28/24 10:21 problems atorvastatin AdvReac Intermediate Muscle Verified 09/28/24 10:21 soreness rosuvastatin AdvReac Intermediate Muscle Verified 09/28/24 10:21 soreness simvastatin AdvReac Intermediate Muscle Verified 09/28/24 10:21 soreness Home Medications Medication Instructions Recorded Confirmed Type cinnamon bark 500 mg capsule 500 mg PO BID 01/15/19 09/28/24 History (Cinnamon) mecobalamin (vitamin B12) 1,000 1,000 mcg sublingual BID 02/26/19 09/28/24 History mcg disintegrating tablet,sublingual OneTouch Delica Lancets 33 gauge #400 ea 01/11/20 09/28/24 Rx (lancets) blood sugar diagnostic (OneTouch #50 ea 11/13/21 09/28/24 Rx Verio test strips) albuterol sulfate 90 mcg/actuation 1 inh inhalation QID PRN shortness 03/13/22 09/28/24 Rx aerosol inhaler of breath or wheezing #6.7 grams ascorbic acid (vitamin C) 500 mg 250 mg PO QAM 03/13/22 09/28/24 History tablet (Vitamin C) cholecalciferol (vitamin D3) 50 50 mcg PO QAM 03/13/22 09/28/24 History mcg (2,000 unit) capsule (Vitamin D3) ferrous sulfate 325 mg (65 mg 325 mg PO QAM 03/13/22 09/28/24 History iron) tablet omega-3 fatty acids 1,000 mg 1,000 mg PO BID 03/13/22 09/28/24 History capsule fluticasone 500 mcg-salmeterol 50 1 inh inhalation BID 06/03/22 09/28/24 History mcg/dose blistr powdr for inhalation (Wixela Inhub) allopurinol 300 mg tablet 300 mg PO BID #180 tabs 02/23/23 09/28/24 History tamsulosin 0.4 mg capsule 0.4 mg PO BID #180 caps 03/22/23 09/28/24 Rx potassium chloride 10 mEq 10 meq PO QAM 08/03/23 09/28/24 History capsule,extended release semaglutide 1 mg/dose (4 mg/3 mL) 1 mg subcut WK 08/03/23 09/28/24 History subcutaneous pen injector (Ozempic) magnesium oxide 420 mg tablet 420 mg PO QAM 08/18/23 09/28/24 History omeprazole 20 mg capsule,delayed 20 mg PO QAM 10/12/23 09/28/24 History release apixaban 5 mg tablet (Eliquis) 5 mg PO BID #60 tabs 11/07/23 09/28/24 Rx furosemide 40 mg tablet 40 mg PO QAM #90 tabs 01/18/24 09/28/24 Rx cyanocobalamin (vitamin B-12) 1,000 mcg sublingual BID 04/16/24 09/28/24 History 1,000 mcg sublingual tablet aspirin 81 mg tablet,delayed 81 mg PO DAILY 04/18/24 09/28/24 History release ezetimibe 10 mg tablet (Zetia) 10 mg PO DAILY #90 tabs 05/01/24 09/28/24 Rx clopidogrel 75 mg tablet 75 mg PO QAM 3 months #90 tabs 05/06/24 09/28/24 Rx lisinopril 10 mg tablet 10 mg PO DAILY #30 tabs 05/06/24 09/28/24 Rx finasteride 5 mg tablet 5 mg PO DAILY 06/21/24 09/28/24 History metoprolol tartrate 50 mg tablet 50 mg PO BID hypertension #180 09/17/24 Rx tabs gabapentin 100 mg capsule 300 mg PO DAILY 09/28/24 09/28/24 History Patient History Medical History (Updated 11/05/24 @ 10:01 by Grady Knowles MD) Acquired deviated nasal septum Heme positive stool 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 Urethral stricture History of myocardial infarction History of atrial fibrillation Elevated troponin Substernal chest pain Hyperlipidemia Hypertension Arteriosclerosis of carotid artery Carotid doppler 07/2022: <50% B/L ICA stenosis Hx of gout GERD (gastroesophageal reflux disease) Hiatal hernia per records, patient denies Sleep apnea CPAP Chronic venous insufficiency BPH (benign prostatic hyperplasia) Barretts esophagus per records, patient denies Chronic anemia Aortic stenosis Noted per remote records Per most recent Echo 08/2023: "No hemodynamically significant valvular aortic stenosis" History of skin cancer Atrial fibrillation Asthma Pulmonary hypertension Echo 08/2023: RVSP 40-50 mmHg 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 per records, patient unaware History of colon polyps History of stomach ulcers Hx 2022 Surgical History History of heart artery stent History of Mohs micrographic surgery for skin cancer H/O left cataract extraction History of right cataract surgery History of biopsy 12/18/2019 right forearm mass H/O vascular surgery right leg varicose vein surgery History of carpal tunnel release of both wrists History of prostate biopsy benign History of colonoscopy with polypectomy most recent = Jun 2022 History of esophagogastroduodenoscopy (EGD) most recent Jun 2022 History of tooth extraction all upper teeth History of wisdom tooth extraction History of tonsillectomy S/P cholecystectomy S/P cardiac cath ~2003- no stents Family History Father Myocardial infarction Mother Family history of diabetes mellitus Brother Family history of diabetes mellitus Other No family history of adverse response to anesthesia Denies family history of Ovarian cancer Prostate cancer Coronary heart disease Breast cancer Colorectal cancer Social History Smoking Status: Never smoker Tobacco Type: Cigarettes Age Started Using Tobacco: 11; Age Quit Using Tobacco: 42; packs per day: 1; Cigarettes Per Day: Quit 30+yrs ago; Second Hand Exposure: No; Do You Dip or Chew Tobacco: No; Hx Alcohol Use: No Hx Substance Use: No Preferred Language: Montserratian Communication Ability: Effective Visual Impairment: No Limitations Hearing Ability: Normal Art Psychotherapist Or Therapist Required: No Beliefs That Will Affect Care: None marital status: Current Living Situation: Spouse Current Living Situation Comment: with current occupational status: retired current occupation: Retired Other Information That Helps Us Care for You: No Feels Safe at Home: Yes Safety Concerns: Feels Safe At This Time Childhood Exposure to Second-Hand Smoke: No Diet: regular caffeine: Yes during the past year weight has: remained stable Dental Care, Regularly: Yes Physical Activity Frequency: Does not Exercise Seatbelt Use: always Sunscreen Use: Yes Assistive Devices: Cane, Denture - Upper, Glasses and Walker Review of Systems Review of Systems: Per HPI Physical Exam Physical Exam: The patient is alert and oriented. Mood and affect appeared normal. He answered all questions appropriately. HEENT: Pupils are equal and reactive to light and accommodation. Extraocular movements are intact. The sclerae are anicteric. Neuro: Cranial nerves intact Lungs: Clear to auscultation bilaterally. He has good air movement without use of accessory muscles. No rales wheezes or rhonchi. Cardiac: Heart demonstrates a regular rate and rhythm. Normal S1 and S2. No murmurs on examination. Pulses: The patient has palpable radial pulses bilaterally that are equal in intensity Extremities: There was no evidence of hypoperfusion. There is no cyanosis or clubbing. There is no edema. Skin: I did not appreciate any rashes on examination today. Results & Data Vital Signs (Past 12 Hours) Vital Signs Temp Pulse Pulse Resp BP Pulse Ox O2 Del Method 11/05/24 11:06 36.3 C L 63 21 115/67 92 Room Air 11/05/24 08:54 Room Air 11/05/24 08:19 36.4 C L 66 21 134/75 93 Room Air 11/05/24 07:35 70 11/05/24 03:47 36.5 C 65 18 122/67 98 Room Air Laboratory Results Abnormal Lab Results 11/04/24 11/04/24 11/05/24 19:00 20:37 00:18 WBC 7.22 RBC 3.42 L Hgb 10.6 L Hct 31.6 L MCV 92.4 MCH 31.0 MCHC 33.5 RDW Std Deviation 53.9 H RDW Coeff of Valdo 16.2 H Plt Count 167 MPV 9.9 Immature Gran % (Auto) 0.7 Neut % (Auto) 65.1 Lymph % (Auto) 20.5 [place] % (Auto) 10.8 Eos % (Auto) 2.5 Baso % (Auto) 0.4 Neut # (Auto) 4.70 Lymph # (Auto) 1.48 [place] # (Auto) 0.78 H Eos # (Auto) 0.18 Baso # (Auto) 0.03 Immature Gran # (Auto) 0.05 PT 11.3 INR 1.0 APTT 34 H PTT Ratio 1.3 Heparin Anti-Xa, LM Wt Heparin Anti-Xa, Unfract Sodium 132 L Potassium 4.2 Chloride 96 L Carbon Dioxide 27 Anion Gap 9 BUN 28 H Creatinine 1.28 Est Cr Clr Drug Dosing Not Reportable eGFR 56.93 BUN/Creatinine Ratio 21.9 H Glucose 119 H POC Glucose 136 H Calcium 9.3 Magnesium Total Bilirubin 0.5 AST 18 ALT 14 Alkaline Phosphatase 147 H Troponin I High Sens 36.3 H 37.0 H Total Protein 6.8 Albumin 3.8 Globulin 3.0 Albumin/Globulin Ratio 1.3 Lipase 37 11/05/24 11/05/24 11/05/24 05:51 07:21 09:46 WBC 6.37 RBC 3.36 L Hgb 10.5 L Hct 31.4 L MCV 93.5 MCH 31.3 MCHC 33.4 RDW Std Deviation 54.4 H RDW Coeff of Valdo 16.0 H Plt Count 165 MPV 9.9 Immature Gran % (Auto) Neut % (Auto) Lymph % (Auto) [place] % (Auto) Eos % (Auto) Baso % (Auto) Neut # (Auto) Lymph # (Auto) [place] # (Auto) Eos # (Auto) Baso # (Auto) Immature Gran # (Auto) PT 11.2 INR 1.0 APTT 43 H PTT Ratio 1.6 Heparin Anti-Xa, LM Wt > 1.50 Heparin Anti-Xa, Unfract > 1.50 H* 1.49 H* Sodium 134 L Potassium 4.0 Chloride 98 Carbon Dioxide 29 Anion Gap 7 BUN 24 H Creatinine 1.05 Est Cr Clr Drug Dosing 73.7 eGFR 72.21 BUN/Creatinine Ratio 22.9 H Glucose 124 H POC Glucose Calcium 9.3 Magnesium 1.7 Total Bilirubin 0.6 AST 16 ALT 12 Alkaline Phosphatase 123 H Troponin I High Sens 41.4 H Total Protein 6.2 Albumin 3.7 Globulin 2.5 Albumin/Globulin Ratio 1.5 Lipase 07/07/25 07/07/25 07/07/25 11:29 11:32 11:51 WBC RBC Hgb Hct MCV MCH MCHC RDW Std Deviation RDW Coeff of Valdo Plt Count MPV Immature Gran % (Auto) Neut % (Auto) Lymph % (Auto) [place] % (Auto) Eos % (Auto) Baso % (Auto) Neut # (Auto) Lymph # (Auto) [place] # (Auto) Eos # (Auto) Baso # (Auto) Immature Gran # (Auto) PT INR APTT PTT Ratio Heparin Anti-Xa, LM Wt Heparin Anti-Xa, Unfract 1.31 H* Sodium Potassium Chloride Carbon Dioxide Anion Gap BUN Creatinine Est Cr Clr Drug Dosing eGFR BUN/Creatinine Ratio Glucose POC Glucose 113 H Calcium Magnesium Total Bilirubin AST ALT Alkaline Phosphatase Troponin I High Sens 39.4 H Total Protein Albumin Globulin Albumin/Globulin Ratio Lipase Diagnostic Findings PCI to ostial proximal LAD 04/2024. Echocardiogram 11/05/2024: Normal LV systolic function with ejection fraction of 50 to 55%. Mildly dilated right atrium. Moderate mitral regurgitation. PG Care Time/CCT Total # of Minutes Spent Total Time Spent with Patient: Total time spent is greater than 50% in coordination of care (as documented) at patient's floor/unit and/or counseling patient: Coding Level of Care Code 11968 INT INP/OBS CARE 3/75MIN Diagnoses Chest pain R07.9 CAD (coronary artery disease) I25.10 Mitral regurgitation I34.0 Atrial fibrillation I48.91
[2024-11-05] MEDS: ISOSORBIDE MONO EXTENDED REL 30 MG TABCR PO ONE (13:14)
--- NOTE | 2024-11-05 14:22 | Discharge Summary ---
Date of Service November 05, 2024 Admission HPI Per Admitting Provider Mango is a 79-year-old male with a past medical history of obesity, type II DM, lumbar stenosis, BPH/LUTS, GERD, hypertension, hyperlipidemia and prior CAD with PCI to ostial/proximal LAD with SOPHIE 04/2024 and residual OM/left PDA disease who presents to hospital for left-sided chest discomfort of 1 day different in quality from his NSTEMI in April. 06/11 pain at time of admitting assessment. Has not changed since the day prior, persistent for several hours at time of ER evaluation. High sensitive troponin 36.3, repeat pending. EKG is accelerated junctional rhythm nonspecific inferior T wave changes. Chest pain first time yesterday. Was just laying down in bed. Was left sided in the chest. Daw[place] different compared to his prior heart attack in that it was much less intense, in the same area. Yesterday lasted until he fell asleep. Was gone when he woke up. Came back tonight ~6pm when laying down again. No shortness of breath, no diffiulty breathing, no sweating. No recent chest pain/angina walking or with activities, although notes he is not highly active. Denies history of acid reflux Denies palpitations Denies recent illness. Denies fever, chills, cough, dysuria, abdominal pain, polyuria. Taking all medicines as directed. Took eliquis this morning, is due for his evening medications. Medical History: Reviewed Medications: Reviewed Surgical History: Reviewed Family history: Reviewed Allergies: Reviewed Social History: No tobacco use, in remission for years. No etoh use. Code Status: Full Code Admission Exam Per Admitting Provider General: A&Ox3. NAD. Cooperative. HEENT: Atraumatic, normocephalic. Vision/hearing intact. PERLAA Pulm: CTAB A&P. -wheezes, -rales, -rhonchi. Symmetrical chest rise. No increased work of breathing. No respiratory distress. Cardiac: RRR, +sm. Radial pulses intact and symmetrical. Abdominal: Nontender, nondistended, soft. BS present. Ext: warm/dry. No edema Principal Diagnosis Chest pain Discharge Exam Constitutional: well-appearing, no acute distress HEENT: NCAT, no conjunctival injection CV: regular rhythm, systolic murmur, extremities well-perfused, bilateral lower extremity varicosities, no lower extremity edema Resp: CTABL, no wheezes/rales/rhonchi appreciated, no increased work of breathing GI: soft, nondistended, nontender, supraumbilical hernia that increases in size with valsalva and is reducible (chronic) Extremities: no swelling or calf tenderness in b/l LE Skin: warm, dry, no rash appreciated Discharge Data Allergies Allergy/AdvReac Type Severity Reaction Status Date / Time mold Allergy Intermediate respiratory Verified 09/28/24 10:21 problems atorvastatin AdvReac Intermediate Muscle Verified 09/28/24 10:21 soreness rosuvastatin AdvReac Intermediate Muscle Verified 09/28/24 10:21 soreness simvastatin AdvReac Intermediate Muscle Verified 09/28/24 10:21 soreness Consultations 11/04/24 20:05 ED Decision to Admit Stat 11/05/24 09:00 Consult Cardiology Stat Hospital Course (1) Chest pain: (2) Peripheral arterial disease: (3) Hyperlipidemia: (4) Sleep apnea: (5) Hypertension: (6) Asthma: (7) Atrial fibrillation: (8) Type 2 diabetes mellitus with obesity: Plan 79-year-old male with a recent history of PCI who presents with 2 episodes of chest pain at rest with a mild troponin elevation and T wave changes in his inferior leads. He is recommended for cardiac evaluation. Chest pain Has had 2 episodes in the last 24 hours of chest pain onset at rest. First episode lasted until he went to bed, second episode lasted approximately an hour. Less intense than his prior NSTEMI pain. Denies GERD, shortness of breath, reflux. He has not had any exertional/progressive anginal symptoms overall leading up to this. No recurrence of pain since time of admission - PCI to ostial/proximal LAD with SOPHIE 04/2024 and residual OM/left PDA Troponin peaked at ~41 Cardiology consulted: do not believe this is high risk and can manage medically; recc adding Imdur and opt f/u Patient is anticoagulated on Eliquis for history of paroxysmal A-fib. Can continue after discharge. 2023 TTE: LVEF 55 to 60%, abnormal septal motion. RV mildly dilated with grossly normal function DAPT and Metoprolol continued Statin intolerant; continue Zetia Type II DM Continue Ozempic - Hgb A1c 6.6% (09/13/24) BPH/LUTS Continue Flomax Continue finasteride Hyperlipidemia Continue Zetia Total Time Total Time Spent Total Time Spent (In Minutes): As per attending attestation. Discharge Plan Discharge Items Patient Disposition: Home - Self-Care Reason For Visit: ?UNSTABLE ANGINA/NSTEMI Discharge Diagnosis: Chest pain Condition on Discharge: Fair Activity: Per Instructions section Non-emergency contact: Primary Care Provider and Roll On Man Call non-emergency contact if: your symptoms worsen and your temperature is above 101.5 Follow-up/Referrals: Grady Duncan MD [Primary Care Provider] - Diet: Carb Consistent or DM2 and Heart Healthy Addtl Attending Provider Instructions: You were admitted due to experiencing left-sided chest pain. After carrying out different studies, we have little concern that this is related to a heart attack. However, we also spoke with our cable maker for their input, and they also believe this is not related to a heart attack. Therefore, we will be discharging today with the below mentioned changes in your medications. A discharge summary will be sent to your primary care physician to ensure continuity of care. Please bring this discharge summary with you to your next office appointment so that your provider can review it at that time. Follow-up appointments: Make a follow-up appointment with your PCP within the next week. It is very important that you follow up with them shortly after discharge from the hospital. Medications: Your medication list has been reviewed and reconciled upon discharge to ensure accuracy and continuity of care. An updated list of all your medications is included with your hospital discharge paperwork. Please review this list closely, and make note of any changes. We sent a new medication called Imdur to your pharmacy. CONTACT YOUR PRIMARY CARE PROVIDER if you experience any of the following: Worsening of symptoms Fever, chills, or fatigue Difficulty following your treatment plan, or difficulty taking medications CALL 911 OR GO TO THE EMERGENCY DEPARTMENT if you experience any of the following: Sudden, severe abdominal pain or nausea/vomiting Severe chest pain, or chest pain that radiates (moves) to your jaw or arm Sudden, severe shortness of breath or difficulty breathing Thank you for allowing us to participate in your care. Pending Studies at Discharge: No Stand-Alone Forms: My [employer], Smoking Cessation Medications and DC Order Prescriptions: New isosorbide mononitrate 30 mg tablet extended release 24 hr 30 mg PO QAM Qty: 30 0RF Continued (DME) lancets [OneTouch Delica Lancets] 33 gauge misc See Rx Instructions .ROUTE .MEDSUPPLY Qty: 400 3RF Rx Instructions: use to test 4 times daily (DME) OneTouch Verio test strips Strip See Rx Instructions .ROUTE .MEDSUPPLY Qty: 50 11RF Rx Instructions: USE TO TEST ONCE DAILY E11.9 PRN furosemide 40 mg tablet 40 mg PO QAM Qty: 90 3RF metoprolol tartrate 50 mg tablet 50 mg PO BID Qty: 180 3RF allopurinol 300 mg tablet 300 mg PO BID Qty: 180 tamsulosin 0.4 mg capsule 0.4 mg PO BID Qty: 180 3RF cinnamon bark [Cinnamon] 500 mg capsule 500 mg PO BID finasteride 5 mg tablet 5 mg PO DAILY Eliquis 5 mg tablet 5 mg PO BID Qty: 60 5RF ezetimibe [Zetia] 10 mg tablet 10 mg PO DAILY Qty: 90 3RF gabapentin 100 mg capsule 300 mg PO DAILY clopidogrel 75 mg tablet 75 mg PO QAM 90 Days Qty: 90 2RF lisinopril 10 mg tablet 10 mg PO DAILY Qty: 30 6RF aspirin 81 mg tablet,delayed release (DR/EC) 81 mg PO DAILY Patient Comments: PER DC SUMMARY ON 04/17-PT TO TAKE ASPIRIN 81MG DAILY ALONG WITH PLAVIX FOR X1 YEAR. mecobalamin (vitamin B12) 1,000 mcg tablet,disintegrating 1,000 mcg SL BID omega-3 fatty acids 1,000 mg Capsule 1,000 mg PO BID ascorbic acid (vitamin C) [Vitamin C] 500 mg Tablet 250 mg PO QAM ferrous sulfate 325 mg (65 mg iron) Tablet 325 mg PO QAM cholecalciferol (vitamin D3) [Vitamin D3] 50 mcg (2,000 unit) Capsule 50 mcg PO QAM albuterol sulfate 90 mcg/actuation HFA aerosol inhaler 1 inh inhalation QID PRN (Reason: shortness of breath or wheezing) Qty: 6.7 0RF fluticasone propion-salmeterol [Wixela Inhub] 500-50 mcg/dose blister with device 1 inh inhalation BID potassium chloride 10 mEq Capsule, Extended Release 10 meq PO QAM Ozempic 1 mg/dose (4 mg/3 mL) Pen Injector 1 mg SUBCUT WK Rx Instructions: SUNDAYS magnesium oxide 420 mg tablet 420 mg PO QAM omeprazole 20 mg Capsule,Delayed Release(Dr/Ec) 20 mg PO QAM cyanocobalamin (vitamin B-12) 1,000 mcg Tablet, Sublingual 1,000 mcg SUBLINGUAL BID Discharge Orders: Discharge Order (Routine); Ordered 11/05/24 Ordered By: Catrachita Ely Admission Data Admit Date/Time: 11/04/24 20:51 Attending Provider: Grady Knowles Admit Provider: Yanick Lopez Primary Care Provider: Grady Duncan Other Providers: Grady Longoria; Yanick Lopez Other Interventions: Discharge Summary Assessment (RN) Last Done: 11/05/24 16:09 Supervising Physician Co-Signing Physician Notes Attending attestation Pt seen and examined in concert with Dr. Solis Bhatti. In agreement with the documented findings as noted in the resident documentation with any exceptions or additions as noted here. Resolution of symptoms at time of examination. VS as noted. On examination, S1/S2 nl RRR no MCG. CTAB. Abd NT/ND BS+ve Chest pain in the setting of h/o CAD s/p PCI - cardiology consult - agree w/ start Imdur, continue medical therapy and follow up in outpatient setting. Else see resident documentation as noted. Total attending physician time spent with this patient's care on the day of discharge: 35 minutes. Resident Activity Tracking Resident Involvement: Resident Care Provided Care Provided: Adult Hospital Medicine
[2024-11-05 16:10] VITALS: PULSE 63
--- NOTE | 2024-11-05 18:29 | Electrocardiogram Report ---
Test Reason : Blood Pressure : */* mmHG Vent. Rate : 77 BPM Atrial Rate : * BPM P-R Int : * ms QRS Dur : 98 ms QT Int : 350 ms P-R-T Axes : * -12 -23 degrees QTcB Int : 396 ms Sinus rhythm with 1st degree AV block Low voltage QRS possible Inferior infarct , age undetermined Abnormal ECG When compared with ECG of 25-Jun-2024 10:45, Nonspecific T wave abnormality now evident in Inferior leads Confirmed by Grady Longoria ([id number]) on 11/05/2024 6:28:32 PM Referred By: Confirmed By: Grady Longoria
== END 2024-11-05 16:36 | disposition home or self-care (01) | DRG 313 ==
LOC: ED 18:40 → SUATTDRO 20:51 → 4W 20:51
DX: Z91.048 Other nonmedicinal substance allergy status; R07.9 Chest pain, unspecified; Z79.899 Other long term (current) drug therapy; Z82.49 Family history of ischemic heart disease and other diseases of the circulatory system; E66.01 Morbid (severe) obesity due to excess calories; I73.9 Peripheral vascular disease, unspecified; Z79.01 Long term (current) use of anticoagulants; I48.0 Paroxysmal atrial fibrillation; Z79.85 Long-term (current) use of injectable non-insulin antidiabetic drugs; Z79.82 Long term (current) use of aspirin; Z68.39 Body mass index [BMI] 39.0-39.9, adult; E11.9 Type 2 diabetes mellitus without complications; I25.10 Atherosclerotic heart disease of native coronary artery without angina pectoris; E78.5 Hyperlipidemia, unspecified; Z95.5 Presence of coronary angioplasty implant and graft; Z79.51 Long term (current) use of inhaled steroids; I25.2 Old myocardial infarction; Z87.891 Personal history of nicotine dependence; I34.0 Nonrheumatic mitral (valve) insufficiency; N40.1 Benign prostatic hyperplasia with lower urinary tract symptoms; Z88.8 Allergy status to other drugs, medicaments and biological substances